=== PATIENT | male | born 1965 | race Hispanic/Latino ===

== ENCOUNTER 2022-01-27 08:21 | Emergency (ER) | payer BC ==
--- OUTSIDE RECORDS SUMMARY | 2022-01-27 08:28 | XMS REPORT | Continuity of Care Document ---
:1965 Author Organization [facility] t Address [address] [place] [address] Care Team Providers Name Role Phone Ike MANAGER IMAGE Primary Care Physician Regan GRANADOS Attending Clinician Unavailable Darwin GRAVE CLEANER, G Attending Clinician CLIFTON GUAMAN Attending Clinician Unavailable Nurse, Pob Immunization Attending Clinician Unavailable Clifton Guaman DO Attending Clinician SANDEEP SEGURA Attending Clinician Unavailable Lab, Fam Pob I Attending Clinician Unavailable Anelouise MANAGER IMAGE Attending Clinician ANENE Attending Clinician Unavailable Doctor Unassigned, Name Attending Clinician Unavailable Sarah Beth PAZ, K.H. Attending Clinician SARAH BETH, K.H. Attending Clinician Unavailable Sagar PAZ Attending Clinician Pob, Lab Main Attending Clinician Unavailable Kavitha Vicente MD Attending Clinician Kavitha VICENTE Attending Clinician Unavailable TAINA Attending Clinician Unavailable Tania PARR Attending Clinician Unknown Attending Clinician Unavailable SAGAR Attending Clinician Unavailable Senthil STEVENS Attending Clinician Unavailable Hilda PARR, R Attending Clinician Galeano Attending Clinician TANIA Admitting Clinician Unavailable SAGAR Admitting Clinician Unavailable Senthil STEVENS Admitting Clinician Unavailable Payers Payer Name Policy Type Policy Number Effective Date Expiration Date S jarrod [facility] [place] [id number] 2015 00:00:00 Problems Condition Condition Condition Status Onset Resolution Last Treating Co mments Source Name Details Category Date Date Treatment Clinician Date No known No known Disease Unive rs active active ity of problems problems [facility] Allergies, Adverse Reactions, Alerts Allergy Allergy Status Severity Reaction(s) Onset Inactive Treating Comm ents Source Name Type Date Date Clinician NO KNOWN Drug Active Univers ALLERGIE Class ity of S [facility] Social History Social Habit Start Date Stop Date Quantity Comments Source Exposure to 2022-01-11 2022-01-21 Not sure [facility] SARS-CoV-2 (event) 00:00:00 13:26:00 Medica l Branch Tobacco use and 2020-09-19 2020-09-19 Never used [facility] exposure 00:00:00 00:00:00 [facility] Sex [birth year] [facility] 00:00:00 00:00:00 [facility] Smoking Status Start Date Stop Date Source Never smoker [facility] Unknown if ever smoked [facility] Medications Ordered Filled Start Stop Current Ordering Indication Dosage Frequency Signature Comments Components Source Medication Medication Date Date Medication? Clinician (SIG) Name Name iopamidol 2021- No [id number] 50mL 50 mL, Univers (ISOVUE 01-21 Intravenou ity o f 370-500 mL) 22:00: 22:00 s, ONCE, 1 [place] injection 00 :00 dose, On Medica l 50 mL Wed01/21/22 Branch at 1700, Routine dicyclomine 2021- No 20mg 20 mg, Uni vers (BENTYL) 01-21 Intramuscu ity of injection 21:15: 20:34 [place], ONCE, [place] 20 mg 00 :00 1 dose, On Medical 01/21/22 Branch at 1615, Routine lactulose 2021-0 2021- Yes [id number] 30mL Take 30 mL Univers 10 gram/15 01-2109 by mouth 2 it y of mL oral 00:00: 04:59 (two) [place] solution 00 :00 times Medical daily for Branch 7 days. bisoprolol 2020-0 Yes 5mg Take 5 mg Un uriah 5 mg tablet 1-28 by mouth ity of 19:32: daily. [address] bisoprolol 2020-0 Yes 5mg Take 5 mg Un uriah 5 mg tablet 1-28 by mouth ity of 19:32: daily. [address] bisoprolol 2020-0 Yes 5mg Take 5 mg Un [facility] 5 mg tablet 1-28 by mouth ity of 19:32: daily. [address] bisoprolol 2020-0 Yes 5mg Take 5 mg Un [facility] 5 mg tablet 1-28 by mouth ity of 19:32: daily. [address] bisoprolol 2020-0 Yes 5mg Take 5 mg Un [facility] 5 mg tablet 1-28 by mouth ity of 19:32: daily. [address] bisoprolol 2020-0 Yes 5mg Take 5 mg Un [facility] 5 mg tablet 1-28 by mouth ity of 19:32: daily. [address] bisoprolol 2020-0 Yes 5mg Take 5 mg Un [facility] 5 mg tablet 1-28 by mouth ity of 19:32: daily. [address] bisoprolol 2020-0 Yes 5mg Take 5 mg Un [facility] 5 mg tablet 1-28 by mouth ity of 19:32: daily. [address] bisoprolol 2020-0 Yes 5mg Take 5 mg Un [facility] 5 mg tablet 1-28 by mouth ity of 19:32: daily. [address] omeprazole 2020-0 Yes 40mg Take 40 mg U nivers 40 mg 1-28 by mouth ity of capsule 19:32: daily. [address] montelukast 2020-0 Yes 10mg Take 10 mg Univers 10 mg 1-28 by mouth ity of tablet 19:32: daily. [address] omeprazole 2020-0 Yes 40mg Take 40 mg U nivers 40 mg 1-28 by mouth ity of capsule 19:32: daily. [address] montelukast 0 Yes 10mg Take 10 mg Univers 10 mg 1-28 by mouth ity of tablet 19:32: daily. [address] omeprazole 0 Yes 40mg Take 40 mg U nivers 40 mg 1-28 by mouth ity of capsule 19:32: daily. [address] montelukast 0 Yes 10mg Take 10 mg Univers 10 mg 1-28 by mouth ity of tablet 19:32: daily. [address] omeprazole 0 Yes 40mg Take 40 mg U nivers 40 mg 1-28 by mouth ity of capsule 19:32: daily. [address] montelukast 0 Yes 10mg Take 10 mg Univers 10 mg 1-28 by mouth ity of tablet 19:32: daily. [address] omeprazole 0 Yes 40mg Take 40 mg U nivers 40 mg 1-28 by mouth ity of capsule 19:32: daily. [address] montelukast 0 Yes 10mg Take 10 mg Univers 10 mg 1-28 by mouth ity of tablet 19:32: daily. [address] omeprazole 0 Yes 40mg Take 40 mg U nivers 40 mg 1-28 by mouth ity of capsule 19:32: daily. [address] montelukast 0 Yes 10mg Take 10 mg Univers 10 mg 1-28 by mouth ity of tablet 19:32: daily. [address] omeprazole 0 Yes 40mg Take 40 mg U nivers 40 mg 1-28 by mouth ity of capsule 19:32: daily. [address] montelukast 0 Yes 10mg Take 10 mg Univers 10 mg 1-28 by mouth ity of tablet 19:32: daily. [address] omeprazole 2020-0 Yes 40mg Take 40 mg U nivers 40 mg 1-28 by mouth ity of capsule 19:32: daily. [address] montelukast 0 Yes 10mg Take 10 mg Univers 10 mg 1-28 by mouth ity of tablet 19:32: daily. [address] omeprazole 2020-0 Yes 40mg Take 40 mg U nivers 40 mg 1-28 by mouth ity of capsule 19:32: daily. [address] Branch montelukast Yes 10mg Take 10 mg Univers 10 mg 09-19 by mouth ity of tablet 19:32: daily. [address] Branch loratadine 2020- No 10mg Take 10 mg Univers (CLARITIN) 09-19 by mouth ity of 10 mg 19:32: 00:00 daily. [place] tablet 05 :00 [facility] Branch loratadine 2020- No 10mg Take 10 mg Univers (CLARITIN) 09-19 by mouth ity of 10 mg 19:32: 00:00 daily. [place] tablet 05 :00 [facility] Branch lisinopril 2020- No 5mg Take 5 mg U nivers (PRINIVIL,Z 09-19 by mouth ity of ESTRIL) 5 19:32: 00:00 daily. [place] mg tablet 03 :00 [facility] Branch lisinopril 2020- No 5mg Take 5 mg U nivers (PRINIVIL,Z 09-19 by mouth ity of ESTRIL) 5 19:32: 00:00 daily. [place] mg tablet 03 :00 Medical Branch ibuprofen 2020- No 400mg Take 400 Un uriah (MOTRIN) 09-19- mg by ity of 400 mg 19:31: 00:00 mouth [place] tablet 59 :00 every 8 Medical (eight) Branch hours as needed. ibuprofen 2020- No 400mg Take 400 Un uriah (MOTRIN) 09-19- mg by ity of 400 mg 19:31: 00:00 mouth [place] tablet 59 :00 every 8 Medical (eight) Branch hours as needed. amoxicillin 2020- No 500mg Take 500 Univers (TRIMOX) 09-19- mg by ity of 500 mg 19:31: 00:00 mouth 3 [place] capsule 47 :00 (three) Medical times Branch daily. amoxicillin 2020- No 500mg Take 500 Univers (TRIMOX) 09-19- mg by ity of 500 mg 19:31: 00:00 mouth 3 [place] capsule 47 :00 (three) Medical times Branch daily. bisoprolol Yes 5mg Take 5 mg Un uriah 5 mg tablet 1-28 by mouth ity of 13:32: daily. [address] bisoprolol Yes 5mg Take 5 mg Un uriah 5 mg tablet -28 by mouth ity of 13:32: daily. [address] omeprazole Yes 40mg Take 40 mg U nivers 40 mg -28 by mouth ity of capsule 13:32: daily. [address] montelukast Yes 10mg Take 10 mg Univers 10 mg 28 by mouth ity of tablet 13:32: daily. [address] omeprazole Yes 40mg Take 40 mg U nivers 40 mg -28 by mouth ity of capsule 13:32: daily. [address] montelukast Yes 10mg Take 10 mg Univers 10 mg 09-19 by mouth ity of tablet 13:32: daily. [address] gadobenate 2020- No .2mL/kg 0.2 mL/kg, Univers dimeglumine 02-12 Intravenou i ty of (MULTIHANCE 16:30: 16:30 s, ONCE, 1 [place] -20 mL) 00 :00 dose, Tue Medical injection 02/13/20 at Bran ch 0.2 mL/kg 1130, Routine ketorolac 2019- No 30mg 30 mg, Unive rs (TORADOL) 01-23 Slow IV ity of injection 17:45: 16:58 Push, [place] 30 mg 00 :00 ONCE, 1 Medical dose, Wed Branch 01/24/20 at 1245, AFSHIN
Fa culty member approving Restricted medication : ESTRELLITA KEITH metoclopram 2020- No 10mg 10 mg, Uni vers jasmin HCl 01-23 Slow IV ity of (REGLAN) 16:45: 15:41 Push, [place] injection 00 :00 ONCE, 1 Medical 10 mg dose, Wed Branch 01/24/20 at 1145, AFSHIN ondansetron 2019- Yes [id number] 4mg Take 1 Univers 4 mg 01-23 tablet by ity of disintegrat 00:00: mouth [place] ing tablet 00 every 4 Medica l (four) Branch hours as needed for Nausea and Vomiting (N/V). meclizine 2020-0 Yes [id number] 25mg Take 1 Un uriah 25 mg 6-03 tablet by ity of tablet 00:00: mouth [place] 00 every 6 Medical (six) Branch hours. ondansetron 2020-0 Yes [id number] 4mg Take 1 Univers 4 mg 6-03 tablet by ity of disintegrat 00:00: mouth [place] ing tablet 00 every 4 Medica l (four) Branch hours as needed for Nausea and Vomiting (N/V). meclizine 2020-0 Yes [id number] 25mg Take 1 Un uriah 25 mg 6-03 tablet by ity of tablet 00:00: mouth [place] 00 every 6 Medical (six) Branch hours. ondansetron 2020-0 Yes [id number] 4mg Take 1 Univers 4 mg 6-03 tablet by ity of disintegrat 00:00: mouth [place] ing tablet 00 every 4 Medica l (four) Branch hours as needed for Nausea and Vomiting (N/V). meclizine 2020-0 Yes [id number] 25mg Take 1 Un uriah 25 mg 6-03 tablet by ity of tablet 00:00: mouth [place] 00 every 6 Medical (six) Branch hours. ondansetron 2020-0 Yes [id number] 4mg Take 1 Univers 4 mg 6-03 tablet by ity of disintegrat 00:00: mouth [place] ing tablet 00 every 4 Medica l (four) Branch hours as needed for Nausea and Vomiting (N/V). meclizine 2020-0 Yes [id number] 25mg Take 1 Un uriah 25 mg 6-03 tablet by ity of tablet 00:00: mouth [place] 00 every 6 Medical (six) Branch hours. ondansetron 2020-0 Yes [id number] 4mg Take 1 Univers 4 mg 6-03 tablet by ity of disintegrat 00:00: mouth [place] ing tablet 00 every 4 Medica l (four) Branch hours as needed for Nausea and Vomiting (N/V). meclizine 2020-0 Yes [id number] 25mg Take 1 Un uriah 25 mg 6-03 tablet by ity of tablet 00:00: mouth [place] 00 every 6 Medical (six) Branch hours. ondansetron 2020-0 Yes [id number] 4mg Take 1 Univers 4 mg 6-03 tablet by ity of disintegrat 00:00: mouth [place] ing tablet 00 every 4 Medica l (four) Branch hours as needed for Nausea and Vomiting (N/V). meclizine 2020-0 Yes [id number] 25mg Take 1 Un uriah 25 mg 6-03 tablet by ity of tablet 00:00: mouth [place] 00 every 6 Medical (six) Branch hours. ondansetron 2020-0 Yes [id number] 4mg Take 1 Univers 4 mg 6-03 tablet by ity of disintegrat 00:00: mouth [place] ing tablet 00 every 4 Medica l (four) Branch hours as needed for Nausea and Vomiting (N/V). meclizine 2020-0 Yes [id number] 25mg Take 1 Un uriah 25 mg 6-03 tablet by ity of tablet 00:00: mouth [place] 00 every 6 Medical (six) Branch hours. ondansetron 2020-0 Yes [id number] 4mg Take 1 Univers 4 mg 6-03 tablet by ity of disintegrat 00:00: mouth [place] ing tablet 00 every 4 Medica l (four) Branch hours as needed for Nausea and Vomiting (N/V). meclizine 2020-0 Yes [id number] 25mg Take 1 Un uriah 25 mg 6-03 tablet by ity of tablet 00:00: mouth [place] 00 every 6 Medical (six) Branch hours. ondansetron 2020-0 2020- No [id number] 4mg Take 1 Univers 4 mg 6-03 01-28 tablet by ity of disintegrat 00:00: 00:00 mouth [place] tablet 00 :00 every 4 Medica l (four) Branch hours as needed for Nausea and Vomiting (N/V). meclizine 2020-0 2020- No [id number] 25mg Take 1 U nivers 25 mg 6-03 01-28 tablet by ity of tablet 00:00: 00:00 mouth [place] 00 :00 every 6 Medical (six) Branch hours. ondansetron 2020-0 2020- No [id number] 4mg Take 1 Univers 4 mg 6-03 01-28 tablet by ity of disintegrat 00:00: 00:00 mouth [place] tablet 00 :00 every 4 Medica l (four) Branch hours as needed for Nausea and Vomiting (N/V). meclizine 2020-0 2020- No [id number] 25mg Take 1 U nivers 25 mg 6-03 01-28 tablet by ity of tablet 00:00: 00:00 mouth [place] 00 :00 every 6 Medical (six) Branch hours. ciprofloxac 2020-0 Yes [id number] 500mg Take 1 Univers in HCl 500 3-24 tablet by ity of mg tablet 00:00: mouth (two) Medical times Branch daily. ciprofloxac 2020-0 Yes [id number] 500mg Take 1 Univers in HCl 500 3-24 tablet by ity of mg tablet 00:00: mouth (two) Medical times Branch daily. ciprofloxac 2020-0 Yes [id number] 500mg Take 1 Univers in HCl 500 3-24 tablet by ity of mg tablet 00:00: mouth (two) Medical times Branch daily. ciprofloxac 2020-0 Yes [id number] 500mg Take 1 Univers in HCl 500 3-24 tablet by ity of mg tablet 00:00: mouth (two) Medical times Branch daily. ciprofloxac 2020-0 Yes [id number] 500mg Take 1 Univers in HCl 500 3-24 tablet by ity of mg tablet 00:00: mouth (two) Medical times Branch daily. ciprofloxac 2020-0 Yes [id number] 500mg Take 1 Univers in HCl 500 3-24 tablet by ity of mg tablet 00:00: mouth (two) Medical times Branch daily. ciprofloxac 2020-0 Yes [id number] 500mg Take 1 Univers in HCl 500 3-24 tablet by ity of mg tablet 00:00: mouth (two) Medical times Branch daily. ciprofloxac 2020-0 Yes [id number] 500mg Take 1 Univers in HCl 500 3-24 tablet by ity of mg tablet 00:00: mouth (two) Medical times Branch daily. ciprofloxac 2020-0 Yes [id number] 500mg Take 1 Univers in HCl 500 3-24 tablet by ity of mg tablet 00:00: mouth (two) Medical times Branch daily. ciprofloxac 2020-0 Yes [id number] 500mg Take 1 Univers in HCl 500 3-24 tablet by ity of mg tablet 00:00: mouth (two) Medical times Branch daily. ciprofloxac 2020-0 2021- No [id number] 500mg Take 1 Univers in HCl 500 11-13 tablet by ity of mg tablet 00:00: 00:00 mouth 2 [place] 00 :[place] (two) Medical times Branch daily. ciprofloxac No [id number] 500mg Take 1 Univers in HCl 500 11-13 tablet by ity of mg tablet 00:00: 00:00 mouth 2 [place] 00 :00 (two) Medical times Branch daily. metroNIDAZO 2019- No 500mg 500 mg, U nivers LE (FLAGYL) 11-12 Oral, ity of tablet 500 23:15: 22:18 ONCE, 1 [place] mg 00 :00 dose, [facility] Medical 11/13/19 at Branch 1815, AFSHIN
Re ason for Anti-Infec tive: Documented Infection< br>Documen dorcas Infection Site: Abdominal< br>Duratio n of Therapy: Other (see Comments) ciprofloxac No 500mg 500 mg, U nivers in HCl 11-12 Oral, ity of (CIPRO) 23:15: 22:18 ONCE, 1 [place] tablet 500 00 :00 dose, Mon Medi priti mg 11/13/19 at Branch 1815, AFSHIN
Re ason for Anti-Infec tive: Documented Infection< br>Documen dorcas Infection Site: Abdominal< br>Duratio n of Therapy: Other (see Comments) ketorolac No 30mg 30 mg, Unive rs (TORADOL) 11-12 Slow IV ity of injection 22:15: 21:10 Push, [place] 30 mg 00 :00 ONCE, 1 Medical dose, [facility] 11/13/19 at 1715, AFSHIN
Fa culty member approving Restricted medication : AYAH STEVENS iohexol 2019- No 104mL 104 mL, Unive rs (OMNIPAQUE 11-12 Intravenou it y of 350 22:00: 21:43 s, ONCE, 1 [place] BULK-100 00 :00 dose, Mon Medica l mL) 11/13/19 at Branch injection 1700, 104 mL Routine NaCl 0.9% 2019- No 1000mL at 999 Uni vers (NS) bolus 11-12 03-23 mL/hr, ity of infusion 22:00: 22:19 1,000 mL, [place] 1,000 mL 00 :00 IV Medical Infusion, Branch ONCE, 1 dose, 11/13/19 at 1700, STAT metroNIDAZO 2020-0 2020- No [id number] 500mg Take 1 Univers LE 500 mg 11-12 tablet by ity of tablet 00:00: 04:59 mouth [place] 00 :00 every 8 Medical (eight) Branch hours for 8 days. meclizine 2020-0 Yes [id number] 25mg Take 1 U nivers 25 mg 1-03 tablet by ity of tablet 00:00: mouth (three) Medical times Branch daily as needed for Dizziness. meclizine 2020-0 Yes [id number] 25mg Take 1 U nivers 25 mg 1-03 tablet by ity of tablet 00:00: mouth (three) Medical times Branch daily as needed for Dizziness. meclizine 2020-0 Yes [id number] 25mg Take 1 U nivers 25 mg 1-03 tablet by ity of tablet 00:00: mouth (three) Medical times Branch daily as needed for Dizziness. meclizine 2020-0 Yes [id number] 25mg Take 1 U nivers 25 mg 1-03 tablet by ity of tablet 00:00: mouth 3 (three) Medical times Branch daily as needed for Dizziness. meclizine 2020-0 Yes [id number] 25mg Take 1 U nivers 25 mg 1-03 tablet by ity of tablet 00:00: mouth (three) Medical times Branch daily as needed for Dizziness. meclizine 2020-0 Yes [id number] 25mg Take 1 U nivers 25 mg 1-03 tablet by ity of tablet 00:00: mouth 3 (three) Medical times Branch daily as needed for Dizziness. meclizine 2020-0 Yes [id number] 25mg Take 1 U nivers 25 mg 1-03 tablet by ity of tablet 00:00: mouth 3 (three) Medical times Branch daily as needed for Dizziness. meclizine 2020-0 Yes [id number] 25mg Take 1 U nivers 25 mg 1-03 tablet by ity of tablet 00:00: mouth 3 [place] 00 (three) Medical times Branch daily as needed for Dizziness. meclizine 2020-0 Yes [id number] 25mg Take 1 U nivers 25 mg 1-03 tablet by ity of tablet 00:00: mouth 3 [place] 00 (three) Medical times Branch daily as needed for Dizziness. meclizine 2020-0 Yes [id number] 25mg Take 1 U nivers 25 mg 1-03 tablet by ity of tablet 00:00: mouth 3 00 (three) Medical times Branch daily as needed for Dizziness. meclizine 2020-0 2020- No [id number] 25mg Take 1 Univers 25 mg 1-03 -28 tablet by ity of tablet 00:00: 00:00 mouth 3 [place] 00 :00 (three) Medical times Branch daily as needed for Dizziness. meclizine 2019-0 2020- No [id number] 25mg Take 1 Univers 25 mg 1-03 -28 tablet by ity of tablet 00:00: 00:00 mouth 3 [place] 00 :00 (three) Medical times Branch daily as needed for Dizziness. chlorphenir 2019-0 Yes [id number] 4mg Take 1 Univers amine 4 mg 8-30 tablet by ity of tablet 00:00: mouth [place] 00 every 6 Medical (six) Branch hours as needed for Allergies or Runny nose. benzonatate 2019-0 Yes [id number] 200mg Take 1 Univers 200 mg 8-30 capsule by ity of capsule 00:00: mouth 3 [place] 00 (three) Medical times Branch daily as needed for Cough. chlorphenir 2019-0 Yes [id number] 4mg Take 1 Univers amine 4 mg 8-30 tablet by ity of tablet 00:00: mouth [place] 00 every 6 Medical (six) Branch hours as needed for Allergies or Runny nose. benzonatate 2019-0 Yes [id number] 200mg Take 1 Univers 200 mg 8-30 capsule by ity of capsule 00:00: mouth 3 [place] 00 (three) Medical times Branch daily as needed for Cough. chlorphenir 2019-0 Yes [id number] 4mg Take 1 Univers amine 4 mg 8-30 tablet by ity of tablet 00:00: mouth [place] 00 every 6 Medical (six) Branch hours as needed for Allergies or Runny nose. benzonatate 2019-0 Yes [id number] 200mg Take 1 Univers 200 mg 8-30 capsule by ity of capsule 00:00: mouth 3 00 (three) Medical times Branch daily as needed for Cough. chlorphenir 2019-0 Yes [id number] 4mg Take 1 Univers amine 4 mg 8-30 tablet by ity of tablet 00:00: mouth [place] 00 every 6 Medical (six) Branch hours as needed for Allergies or Runny nose. benzonatate 2019-0 Yes [id number] 200mg Take 1 Univers 200 mg 8-30 capsule by ity of capsule 00:00: mouth 3 00 (three) Medical times Branch daily as needed for Cough. chlorphenir 2019-0 Yes [id number] 4mg Take 1 [facility] amine 4 mg 8-30 tablet by ity of tablet 00:00: mouth [place] 00 every 6 Medical (six) Branch hours as needed for Allergies or Runny nose. benzonatate 2019-0 Yes [id number] 200mg Take 1 Univers 200 mg 8-30 capsule by ity of capsule 00:00: mouth 3 (three) Medical times Branch daily as needed for Cough. chlorphenir 2019-0 Yes [id number] 4mg Take 1 [facility] amine 4 mg 8-30 tablet by ity of tablet 00:00: mouth [place] 00 every 6 Medical (six) Branch hours as needed for Allergies or Runny nose. benzonatate 2019-0 Yes [id number] 200mg Take 1 Univers 200 mg 8-30 capsule by ity of capsule 00:00: mouth 3 (three) Medical times Branch daily as needed for Cough. chlorphenir 2019-0 Yes [id number] 4mg Take 1 [facility] amine 4 mg 8-30 tablet by ity of tablet 00:00: mouth [place] 00 every 6 Medical (six) Branch hours as needed for Allergies or Runny nose. benzonatate 2019-0 Yes [id number] 200mg Take 1 Univers 200 mg 8-30 capsule by ity of capsule 00:00: mouth 3 (three) Medical times Branch daily as needed for Cough. chlorphenir 2019-0 Yes [id number] 4mg Take 1 [facility] amine 4 mg 8-30 tablet by ity of tablet 00:00: mouth [place] 00 every 6 Medical (six) Branch hours as needed for Allergies or Runny nose. benzonatate 2019-0 Yes [id number] 200mg Take 1 Univers 200 mg 8-30 capsule by ity of capsule 00:00: mouth 3 00 (three) Medical times Branch daily as needed for Cough. chlorphenir 2019- Yes [id number] 4mg Take 1 Univers amine 4 mg 8-30 tablet by ity of tablet 00:00: mouth [place] 00 every 6 Medical (six) Branch hours as needed for Allergies or Runny nose. benzonatate Yes [id number] 200mg Take 1 Univers 200 mg 8-30 capsule by ity of capsule 00:00: mouth 3 [place] 00 (three) Medical times Branch daily as needed for Cough. chlorphenir Yes [id number] 4mg Take 1 Univers amine 4 mg 8-30 tablet by ity of tablet 00:00: mouth [place] 00 every 6 Medical (six) Branch hours as needed for Allergies or Runny nose. benzonatate Yes [id number] 200mg Take 1 Univers 200 mg 8-30 capsule by ity of capsule 00:00: mouth 3 [place] 00 (three) Medical times Branch daily as needed for Cough. chlorphenir Yes [id number] 4mg Take 1 Univers amine 4 mg 8-30 tablet by ity of tablet 00:00: mouth [place] 00 every 6 Medical (six) Branch hours as needed for Allergies or Runny nose. benzonatate Yes [id number] 200mg Take 1 Univers 200 mg 8-30 capsule by ity of capsule 00:00: mouth 3 [place] 00 (three) Medical times Branch daily as needed for Cough. chlorphenir 2020- No [id number] 4mg Take 1 Univers amine 4 mg 8-30 01-28 tablet by ity of tablet 00:00: 00:00 mouth [place] 00 :00 every 6 Medical (six) Branch hours as needed for Allergies or Runny nose. benzonatate 2020- No [id number] 200mg Take 1 Univers 200 mg 8-30 01-28 capsule by ity of capsule 00:00: 00:00 mouth 3 [place] 00 :00 (three) Medical times Branch daily as needed for Cough. chlorphenir 2018-0 2020- No [id number] 4mg Take 1 Univers amine 4 mg 8-30 01-28 tablet by ity of tablet 00:00: 00:00 mouth [place] 00 :00 every 6 Medical (six) Branch hours as needed for Allergies or Runny nose. benzonatate 2020- No [id number] 200mg Take 1 Univers 200 mg 04-21 capsule by ity of capsule 00:00: 00:00 mouth 3 [place] 00 :00 (three) Medical times Branch daily as needed for Cough. ibuprofen 2018-0 Yes 400mg Take 400 Uni vers (MOTRIN) 9-03 mg by ity of 400 mg 16:29: mouth [place] tablet 22 every 8 Medical (eight) Branch hours as needed. loratadine 2018-0 Yes 10mg Take 10 mg U nivers (CLARITIN) 9-03 by mouth ity o f 10 mg 16:29: daily. [place] tablet 22 Medical Branch amoxicillin 2018-0 Yes 500mg Take 500 U nivers (TRIMOX) 9-03 mg by ity of 500 mg 16:29: mouth 3 [place] capsule 22 (three) Medical times Branch daily. lisinopril 2018-0 Yes 5mg Take 5 mg Un uriah (PRINIVIL,Z 9-03 by mouth ity of ESTRIL) 5 16:29: daily. [place] mg tablet 22 Medical Branch ibuprofen 2018-0 Yes 400mg Take 400 Uni vers (MOTRIN) 9-03 mg by ity of 400 mg 16:29: mouth [place] tablet 22 every 8 Medical (eight) Branch hours as needed. loratadine 2018-0 Yes 10mg Take 10 mg U nivers (CLARITIN) 9-03 by mouth ity o f 10 mg 16:29: daily. [place] tablet 22 Medical Branch amoxicillin 2018-0 Yes 500mg Take 500 U nivers (TRIMOX) 9-03 mg by ity of 500 mg 16:29: mouth 3 [place] capsule 22 (three) Medical times Branch daily. lisinopril 2018-0 Yes 5mg Take 5 mg Un uriah (PRINIVIL,Z 9-03 by mouth ity of ESTRIL) 5 16:29: daily. [place] mg tablet 22 Medical Branch ibuprofen 2018-0 Yes 400mg Take 400 Uni vers (MOTRIN) 9-03 mg by ity of 400 mg 16:29: mouth [place] tablet 22 every 8 Medical (eight) Branch hours as needed. loratadine 2018-0 Yes 10mg Take 10 mg U nivers (CLARITIN) 9-03 by mouth ity o f 10 mg 16:29: daily. [place] tablet 22 Medical Branch amoxicillin 2018-0 Yes 500mg Take 500 U nivers (TRIMOX) 9-03 mg by ity of 500 mg 16:29: mouth 3 [place] capsule 22 (three) Medical times Branch daily. lisinopril 2018-0 Yes 5mg Take 5 mg Un uriah (PRINIVIL,Z 9-03 by mouth ity of ESTRIL) 5 16:29: daily. [place] mg tablet 22 Medical Branch ibuprofen 2018-0 Yes 400mg Take 400 Uni vers (MOTRIN) 9-03 mg by ity of 400 mg 16:29: mouth [place] tablet 22 every 8 Medical (eight) Branch hours as needed. loratadine 2018-0 Yes 10mg Take 10 mg U nivers (CLARITIN) 9-03 by mouth ity o f 10 mg 16:29: daily. [place] tablet 22 Medical Branch amoxicillin 2018-0 Yes 500mg Take 500 U nivers (TRIMOX) 9-03 mg by ity of 500 mg 16:29: mouth 3 [place] capsule 22 (three) Medical times Branch daily. lisinopril 2018-0 Yes 5mg Take 5 mg Un uriah (PRINIVIL,Z 9-03 by mouth ity of ESTRIL) 5 16:29: daily. [place] mg tablet 22 Medical Branch ibuprofen 2018-0 Yes 400mg Take 400 Uni vers (MOTRIN) 9-03 mg by ity of 400 mg 16:29: mouth [place] tablet 22 every 8 Medical (eight) Branch hours as needed. loratadine 2018-0 Yes 10mg Take 10 mg U nivers (CLARITIN) 9-03 by mouth ity o f 10 mg 16:29: daily. [place] tablet 22 Medical Branch ibuprofen 2018-0 Yes 400mg Take 400 Uni vers (MOTRIN) 9-03 mg by ity of 400 mg 16:29: mouth [place] tablet 22 every 8 Medical (eight) Branch hours as needed. loratadine 2018-0 Yes 10mg Take 10 mg U nivers (CLARITIN) 9-03 by mouth ity o f 10 mg 16:29: daily. [place] tablet 22 Medical Branch amoxicillin 2018-0 Yes 500mg Take 500 U nivers (TRIMOX) 9-03 mg by ity of 500 mg 16:29: mouth 3 [place] capsule 22 (three) Medical times Branch daily. amoxicillin 2018-0 Yes 500mg Take 500 U nivers (TRIMOX) 9-03 mg by ity of 500 mg 16:29: mouth 3 [place] capsule 22 (three) Medical times Branch daily. lisinopril 2018-0 Yes 5mg Take 5 mg Un ur[facility] (PRINIVIL,Z 9-03 by mouth ity of ESTRIL) 5 16:29: daily. [place] mg tablet 22 Medical Branch lisinopril 2018-0 Yes 5mg Take 5 mg [facility] (PRINIVIL,Z 9-03 by mouth ity of ESTRIL) 5 16:29: daily. [place] mg tablet 22 Medical Branch ibuprofen 2018-0 Yes 400mg Take 400 Uni vers (MOTRIN) 9-03 mg by ity of 400 mg 16:29: mouth [place] tablet 22 every 8 Medical (eight) Branch hours as needed. loratadine 2018-0 Yes 10mg Take 10 mg U nivers (CLARITIN) 9-03 by mouth ity o f 10 mg 16:29: daily. [place] tablet 22 Medical Branch amoxicillin 2018-0 Yes 500mg Take 500 U nivers (TRIMOX) 9-03 mg by ity of 500 mg 16:29: mouth 3 [place] capsule 22 (three) Medical times Branch daily. lisinopril 2018-0 Yes 5mg Take 5 mg [facility] (PRINIVIL,Z 9-03 by mouth ity of ESTRIL) 5 16:29: daily. [place] mg tablet 22 Medical Branch ibuprofen 2018-0 Yes 400mg Take 400 Uni vers (MOTRIN) 9-03 mg by ity of 400 mg 16:29: mouth [place] tablet 22 every 8 Medical (eight) Branch hours as needed. loratadine 2018-0 Yes 10mg Take 10 mg U nivers (CLARITIN) 9-03 by mouth ity o f 10 mg 16:29: daily. [place] tablet 22 Medical Branch amoxicillin 2018-0 Yes 500mg Take 500 U nivers (TRIMOX) 9-03 mg by ity of 500 mg 16:29: mouth 3 [place] capsule 22 (three) Medical times Branch daily. lisinopril 2018-0 Yes 5mg Take 5 mg Un [facility] (PRINIVIL,Z 9-03 by mouth ity of ESTRIL) 5 16:29: daily. [place] mg tablet 22 Medical Branch ibuprofen 2018-0 Yes 400mg Take 400 Uni vers (MOTRIN) 9-03 mg by ity of 400 mg 16:29: mouth [place] tablet 22 every 8 Medical (eight) Branch hours as needed. loratadine 2018-0 Yes 10mg Take 10 mg U nivers (CLARITIN) 9-03 by mouth ity o f 10 mg 16:29: daily. [place] tablet 22 Medical Branch amoxicillin 2018-0 Yes 500mg Take 500 U nivers (TRIMOX) 9-03 mg by ity of 500 mg 16:29: mouth 3 [place] capsule 22 (three) Medical times Branch daily. lisinopril 2018-0 Yes 5mg Take 5 mg Un [facility] (PRINIVIL,Z 9-03 by mouth ity of ESTRIL) 5 16:29: daily. [place] mg tablet 22 Medical Branch ibuprofen 2018-0 Yes 400mg Take 400 Uni vers (MOTRIN) 9-03 mg by ity of 400 mg 16:29: mouth [place] tablet 22 every 8 Medical (eight) Branch hours as needed. loratadine 2018-0 Yes 10mg Take 10 mg U nivers (CLARITIN) 9-03 by mouth ity o f 10 mg 16:29: daily. [place] tablet 22 Medical Branch amoxicillin 2018-0 Yes 500mg Take 500 U nivers (TRIMOX) 9-03 mg by ity of 500 mg 16:29: mouth 3 [place] capsule 22 (three) Medical times Branch daily. lisinopril 2018-0 Yes 5mg Take 5 mg [facility] (PRINIVIL,Z 9-03 by mouth ity of ESTRIL) 5 16:29: daily. [place] mg tablet 22 Medical Branch ibuprofen 2018-0 Yes 400mg Take 400 Uni vers (MOTRIN) 9-03 mg by ity of 400 mg 16:29: mouth [place] tablet 22 every 8 Medical (eight) Branch hours as needed. loratadine 2018-0 Yes 10mg Take 10 mg U nivers (CLARITIN) 9-03 by mouth ity o f 10 mg 16:29: daily. [place] tablet 22 Medical Branch amoxicillin 2018-0 Yes 500mg Take 500 U nivers (TRIMOX) 9-03 mg by ity of 500 mg 16:29: mouth 3 [place] capsule 22 (three) Medical times Branch daily. lisinopril 2018-0 Yes 5mg Take 5 mg [facility] (PRINIVIL,Z 9-03 by mouth ity of ESTRIL) 5 16:29: daily. [place] mg tablet 22 Medical Branch sulfamethox 2018-0 Yes 1{tbl} Take 1 Un ur[facility] azole-trime 9-03 tablet by ity of thoprim 00:00: mouth [place] 800-160 mg 00 every 12 Medic al per tablet (twelve) Branc h hours. ibuprofen 2018-0 Yes 800mg Take 1 Unive rs 800 mg 9-03 tablet by ity of tablet 00:00: mouth [place] 00 every 8 Medical (eight) Branch hours as needed for Pain (scale 4-6). sulfamethox 2018-0 Yes 1{tbl} Take 1 Un [facility] azole-trime 9-03 tablet by ity of thoprim 00:00: mouth [place] 800-160 mg 00 every 12 Medic al per tablet (twelve) Branc h hours. ibuprofen 2018-0 Yes 800mg Take 1 Unive rs 800 mg 9-03 tablet by ity of tablet 00:00: mouth [place] 00 every 8 Medical (eight) Branch hours as needed for Pain (scale 4-6). sulfamethox 2018-0 Yes 1{tbl} Take 1 Un [facility] azole-trime 9-03 tablet by ity of thoprim 00:00: mouth [place] 800-160 mg 00 every 12 Medic al per tablet (twelve) Branc h hours. ibuprofen 2018-0 Yes 800mg Take 1 Unive rs 800 mg 9-03 tablet by ity of tablet 00:00: mouth [place] 00 every 8 Medical (eight) Branch hours as needed for Pain (scale 4-6). sulfamethox 2018-0 Yes 1{tbl} Take 1 Un [facility] azole-trime 9-03 tablet by ity of thoprim 00:00: mouth [place] 800-160 mg 00 every 12 Medic al per tablet (twelve) Branc h hours. ibuprofen 2018-0 Yes 800mg Take 1 Unive rs 800 mg 9-03 tablet by ity of tablet 00:00: mouth [place] 00 every 8 Medical (eight) Branch hours as needed for Pain (scale 4-6). sulfamethox 2018-0 Yes 1{tbl} Take 1 [facility] azole-trime 9-03 tablet by ity of thoprim 00:00: mouth [place] 800-160 mg 00 every 12 Medic al per tablet (twelve) Branc h hours. ibuprofen 2018-0 Yes 800mg Take 1 Unive rs 800 mg 9-03 tablet by ity of tablet 00:00: mouth [place] 00 every 8 Medical (eight) Branch hours as needed for Pain (scale 4-6). sulfamethox 2018-0 Yes 1{tbl} Take 1 Un [facility] azole-trime 9-03 tablet by ity of thoprim 00:00: mouth [place] 800-160 mg 00 every 12 Medic al per tablet (twelve) Branc h hours. ibuprofen 2018-0 Yes 800mg Take 1 Unive rs 800 mg 9-03 tablet by ity of tablet 00:00: mouth [place] 00 every 8 Medical (eight) Branch hours as needed for Pain (scale 4-6). sulfamethox 2018-0 Yes 1{tbl} Take 1 Un [facility] azole-trime 9-03 tablet by ity of thoprim 00:00: mouth [place] 800-160 mg 00 every 12 Medic al per tablet (twelve) Branc h hours. ibuprofen 2018-0 Yes 800mg Take 1 Unive rs 800 mg 9-03 tablet by ity of tablet 00:00: mouth [place] 00 every 8 Medical (eight) Branch hours as needed for Pain (scale 4-6). sulfamethox 2018-0 Yes 1{tbl} Take 1 Un [facility] azole-trime 9-03 tablet by ity of thoprim 00:00: mouth [place] 800-160 mg 00 every 12 Medic al per tablet (twelve) Branc h hours. ibuprofen 2018-0 Yes 800mg Take 1 Unive rs 800 mg 9-03 tablet by ity of tablet 00:00: mouth [place] 00 every 8 Medical (eight) Branch hours as needed for Pain (scale 4-6). sulfamethox 2018-0 Yes 1{tbl} Take 1 Un [facility] azole-trime 9-03 tablet by ity of thoprim 00:00: mouth [place] 800-160 mg 00 every 12 Medic al per tablet (twelve) Branc h hours. ibuprofen 2018-0 Yes 800mg Take 1 Unive rs 800 mg 9-03 tablet by ity of tablet 00:00: mouth [place] 00 every 8 Medical (eight) Branch hours as needed for Pain (scale 4-6). sulfamethox 2018-0 Yes 1{tbl} Take 1 Un [facility] azole-trime 9-03 tablet by ity of thoprim 00:00: mouth [place] 800-160 mg 00 every 12 Medic al per tablet (twelve) Branc h hours. ibuprofen 2018-0 Yes 800mg Take 1 Unive rs 800 mg 9-03 tablet by ity of tablet 00:00: mouth [place] 00 every 8 Medical (eight) Branch hours as needed for Pain (scale 4-6). sulfamethox Yes 1{tbl} Take 1 Un [facility] azole-trime 9-03 tablet by ity of thoprim 00:00: mouth [place] 800-160 mg 00 every 12 Medic al per tablet (twelve) Branc h hours. ibuprofen Yes 800mg Take 1 Unive rs 800 mg - tablet by ity of tablet 00:00: mouth [place] 00 every 8 Medical (eight) Branch hours as needed for Pain (scale 4-6). sulfamethox 2020- No 1{tbl} Take 1 U nivers azole-trime -10 21- tablet by it y of thoprim 00:00: 00:00 mouth [place] 800-160 mg 00 :00 every 12 Medic al per tablet (twelve) Branc h hours. ibuprofen 2020- No 800mg Take 1 Univ ers 800 mg -09-19 tablet by ity of tablet 00:00: 00:00 mouth [place] 00 :00 every 8 Medical (eight) Branch hours as needed for Pain (scale 4-6). sulfamethox 2020- No 1{tbl} Take 1 U nivers azole-trime -10 21- tablet by it y of thoprim 00:00: 00:00 mouth [place] 800-160 mg 00 :00 every 12 Medic al per tablet (twelve) Branc h hours. ibuprofen 2020- No 800mg Take 1 Univ ers 800 mg 04-25 tablet by ity of tablet 00:00: 00:00 mouth [place] 00 :00 every 8 Medical (eight) Branch hours as needed for Pain (scale 4-6). acetaminoph Yes 1{tbl} Take 1 Un [facility] en-codeine 2-20 tablet by ity of (TYLENOL-CO 00:00: mouth [place] DEINE #3) 00 every 6 Medical 300-30 mg (six) Branch tablet hours as needed for Pain (scale 4-6) (for cough). sod Yes 1{bottl Use 1 Univers chlor-bicar 2-20 e} Bottle in ity of b-squeez 00:00: each [place] bottle 00 nostril 2 Medical (NEILMED (two) Branch SINUS RINSE times COMPLETE) daily. Use pkdv in hot shower 1 hour before bedtime acetaminoph Yes 1{tbl} Take 1 Un [facility] en-codeine 2-20 tablet by ity of (TYLENOL-CO 00:00: mouth [place] DEINE #3) 00 every 6 Medical 300-30 mg (six) Branch tablet hours as needed for Pain (scale 4-6) (for cough). sod Yes 1{bottl Use 1 Univers chlor-bicar 2-20 e} Bottle in ity of b-squeez 00:00: each [place] bottle 00 nostril 2 Medical (NEILMED (two) Branch SINUS RINSE times COMPLETE) daily. Use pkdv in hot shower 1 hour before bedtime acetaminoph Yes 1{tbl} Take 1 Un [facility] en-codeine 2-20 tablet by ity of (TYLENOL-CO 00:00: mouth [place] DEINE #3) 00 every 6 Medical 300-30 mg (six) Branch tablet hours as needed for Pain (scale 4-6) (for cough). sod Yes 1{bottl Use 1 Univers chlor-bicar 2-20 e} Bottle in ity of b-squeez 00:00: each [place] bottle 00 nostril 2 Medical (NEILMED (two) Branch SINUS RINSE times COMPLETE) daily. Use pkdv in hot shower 1 hour before bedtime acetaminoph Yes 1{tbl} Take 1 Un [facility] en-codeine 2-20 tablet by ity of (TYLENOL-CO 00:00: mouth [place] DEINE #3) 00 every 6 Medical 300-30 mg (six) Branch tablet hours as needed for Pain (scale 4-6) (for cough). sod Yes 1{bottl Use 1 Univers chlor-bicar 2-20 e} Bottle in ity of b-squeez 00:00: each [place] bottle 00 nostril 2 Medical (NEILMED (two) Branch SINUS RINSE times COMPLETE) daily. Use pkdv in hot shower 1 hour before bedtime acetaminoph Yes 1{tbl} Take 1 [facility] en-codeine 2-20 tablet by ity of (TYLENOL-CO 00:00: mouth [place] DEINE #3) 00 every 6 Medical 300-30 mg (six) Branch tablet hours as needed for Pain (scale 4-6) (for cough). sod Yes 1{bottl Use 1 Univers chlor-bicar 2-20 e} Bottle in ity of b-squeez 00:00: each [place] bottle 00 nostril 2 Medical (NEILMED (two) Branch SINUS RINSE times COMPLETE) daily. Use pkdv in hot shower 1 hour before bedtime acetaminoph Yes 1{tbl} Take 1 Un [facility] en-codeine 2-20 tablet by ity of (TYLENOL-CO 00:00: mouth [place] DEINE #3) 00 every 6 Medical 300-30 mg (six) Branch tablet hours as needed for Pain (scale 4-6) (for cough). sod Yes 1{bottl Use 1 Univers chlor-bicar 2-20 e} Bottle in ity of b-squeez 00:00: each [place] bottle 00 nostril 2 Medical (NEILMED (two) Branch SINUS RINSE times COMPLETE) daily. Use pkdv in hot shower 1 hour before bedtime acetaminoph Yes 1{tbl} Take 1 Un [facility] en-codeine 2-20 tablet by ity of (TYLENOL-CO 00:00: mouth [place] DEINE #3) 00 every 6 Medical 300-30 mg (six) Branch tablet hours as needed for Pain (scale 4-6) (for cough). sod Yes 1{bottl Use 1 Univers chlor-bicar 2-20 e} Bottle in ity of b-squeez 00:00: each [place] bottle 00 nostril 2 Medical (NEILMED (two) Branch SINUS RINSE times COMPLETE) daily. Use pkdv in hot shower 1 hour before bedtime acetaminoph Yes 1{tbl} Take 1 [facility] en-codeine 2-20 tablet by ity of (TYLENOL-CO 00:00: mouth [place] DEINE #3) 00 every 6 Medical 300-30 mg (six) Branch tablet hours as needed for Pain (scale 4-6) (for cough). sod Yes 1{bottl Use 1 Univers chlor-bicar 2-20 e} Bottle in ity of b-squeez 00:00: each [place] bottle 00 nostril 2 Medical (NEILMED (two) Branch SINUS RINSE times COMPLETE) daily. Use pkdv in hot shower 1 hour before bedtime acetaminoph Yes 1{tbl} Take 1 Un [facility] en-codeine 2-20 tablet by ity of (TYLENOL-CO 00:00: mouth [place] DEINE #3) 00 every 6 Medical 300-30 mg (six) Branch tablet hours as needed for Pain (scale 4-6) (for cough). sod Yes 1{bottl Use 1 Univers chlor-bicar 2-20 e} Bottle in ity of b-squeez 00:00: each [place] bottle 00 nostril 2 Medical (NEILMED (two) Branch SINUS RINSE times COMPLETE) daily. Use pkdv in hot shower 1 hour before bedtime acetaminoph Yes 1{tbl} Take 1 Un [facility] en-codeine 2-20 tablet by ity of (TYLENOL-CO 00:00: mouth [place] DEINE #3) 00 every 6 Medical 300-30 mg (six) Branch tablet hours as needed for Pain (scale 4-6) (for cough). sod Yes 1{bottl Use 1 Univers chlor-bicar 2-20 e} Bottle in ity of b-squeez 00:00: each [place] bottle 00 nostril 2 Medical (NEILMED (two) Branch SINUS RINSE times COMPLETE) daily. Use pkdv in hot shower 1 hour before bedtime acetaminoph Yes 1{tbl} Take 1 Un [facility] en-codeine 2-20 tablet by ity of (TYLENOL-CO 00:00: mouth [place] DEINE #3) 00 every 6 Medical 300-30 mg (six) Branch tablet hours as needed for Pain (scale 4-6) (for cough). sod Yes 1{bottl Use 1 Univers chlor-bicar 2-20 e} Bottle in ity of b-squeez 00:00: each [place] bottle 00 nostril 2 Medical (NEILMED (two) Branch SINUS RINSE times COMPLETE) daily. Use pkdv in hot shower 1 hour before bedtime acetaminoph 2020- No 1{tbl} Take 1 U nivers en-codeine 2-20 -28 tablet by ity of (TYLENOL-CO 00:00: 00:00 [place] DEINE #3[place] 00 :00 every 6 Medical 300-30 mg (six) Branch tablet hours as needed for Pain (scale 4-6) (for cough). sod 2020- No 1{bottl Use 1 Univers chlor-bicar 10-12 e} Bottle in it y of b-squeez 00:00: 00:00 each [place] bottle 00 :00 nostril 2 Medical (NEILMED (two) Branch SINUS RINSE times COMPLETE) daily. Use pkdv in hot shower 1 hour before bedtime acetaminoph 2020- No 1{tbl} Take 1 U nivers en-codeine 10-12 tablet by ity of (TYLENOL-CO 00:00: 00:00 [place] DEINE #3) 00 :00 every 6 Medical 300-30 mg (six) Branch tablet hours as needed for Pain (scale 4-6) (for cough). sod 2020- No 1{bottl Use 1 Univers chlor-bicar 10-12 e} Bottle in it y of b-squeez 00:00: 00:00 each [place] bottle 00 :00 nostril 2 Medical (NEILMED (two) Branch SINUS RINSE times COMPLETE) daily. Use pkdv in hot shower 1 hour before bedtime albuterol Yes 2{puff} Inhale 2 U nivers (VENTOLIN) 4-10 Puffs ity of 90 00:00: every 4 [place] mcg/actuati 00 (four) Medica l on inhaler hours as Branc h needed for Wheezing or Shortness of Breath. albuterol Yes 2{puff} Inhale 2 U nivers (VENTOLIN) 4-10 Puffs ity of 90 00:00: every 4 [place] mcg/actuati 00 (four) Medica l on inhaler hours as Branc h needed for Wheezing or Shortness of Breath. albuterol Yes 2{puff} Inhale 2 U nivers (VENTOLIN) 4-10 Puffs ity of 90 00:00: every 4 [place] mcg/actuati 00 (four) Medica l on inhaler hours as Branc h needed for Wheezing or Shortness of Breath. albuterol 2015-0 Yes 2{puff} Inhale 2 U nivers (VENTOLIN) 4-10 Puffs ity of 90 00:00: every 4 [place] mcg/actuati 00 (four) Medica l on inhaler hours as Branc h needed for Wheezing or Shortness of Breath. albuterol 2015-0 Yes 2{puff} Inhale 2 U nivers (VENTOLIN) 4-10 Puffs ity of 90 00:00: every 4 [place] mcg/actuati 00 (four) Medica l on inhaler hours as Branc h needed for Wheezing or Shortness of Breath. albuterol 2015-0 Yes 2{puff} Inhale 2 U nivers (VENTOLIN) 4-10 Puffs ity of 90 00:00: every 4 [place] mcg/actuati 00 (four) Medica l on inhaler hours as Branc h needed for Wheezing or Shortness of Breath. albuterol 2015-0 Yes 2{puff} Inhale 2 U nivers (VENTOLIN) 4-10 Puffs ity of 90 00:00: every 4 [place] mcg/actuati 00 (four) Medica l on inhaler hours as Branc h needed for Wheezing or Shortness of Breath. albuterol 0 Yes 2{puff} Inhale 2 U nivers (VENTOLIN) 4-10 Puffs ity of 90 00:00: every 4 [place] mcg/actuati 00 (four) Medica l on inhaler hours as Branc h needed for Wheezing or Shortness of Breath. albuterol 0 Yes 2{puff} Inhale 2 U nivers (VENTOLIN) 4-10 Puffs ity of 90 00:00: every 4 [place] mcg/actuati 00 (four) Medica l on inhaler hours as Branc h needed for Wheezing or Shortness of Breath. albuterol 2015-0 Yes 2{puff} Inhale 2 U nivers (VENTOLIN) 4-10 Puffs ity of 90 00:00: every 4 [place] mcg/actuati 00 (four) Medica l on inhaler hours as Branc h needed for Wheezing or Shortness of Breath. albuterol 0 Yes 2{puff} Inhale 2 U nivers (VENTOLIN) 4-10 Puffs ity of 90 00:00: every 4 [place] mcg/actuati 00 (four) Medica l on inhaler hours as Branc h needed for Wheezing or Shortness of Breath. albuterol 2020- No 2{puff} Inhale 2 Univers (VENTOLIN) 11-30-28 Puffs ity of 90 00:00: 00:00 every 4 [place] mcg/actuati 00 :00 (four) Medica l on inhaler hours as Branc h needed for Wheezing or Shortness of Breath. albuterol 2020- No 2{puff} Inhale 2 Univers (VENTOLIN) 11-30- Puffs ity of 90 00:00: 00:00 every 4 [place] mcg/actuati 00 :00 (four) Medica l on inhaler hours as Branc h needed for Wheezing or Shortness of Breath. benzonatate 2018- No 200mg Take 1 Cap Univers (TESSALON) 11-30 by mouth 3 it y of 200 mg 00:00: 00:00 (three) [place] capsule 00 :00 times Medical daily as Branch needed for Cough. Immunizations Ordered Filled Immunization Date Status Comments [facility] e Immunization Name Name SARS-COV-2 COVID-19 2021-08-12 Completed Unive rsity of [place]/J&J VACCINE 00:00:00 [facility] SARS-COV-2 COVID-19 2021-08-12 Completed Unive rsity of [place]/J&J VACCINE 00:00:00 [facility] Influenza Virus 2020-05-23 Completed Universit y of Vaccine 00:00:00 [facility] Influenza Virus 2020-05-23 Completed Universit y of Vaccine 00:00:00 [facility] Influenza Virus 2020-05-23 Completed Universit y of Vaccine 00:00:00 [facility] Influenza Virus 2020-05-23 Completed Universit y of Vaccine 00:00:00 [facility] Influenza Virus 2020-05-23 Completed Universit y of Vaccine 00:00:00 [facility] Influenza Virus 2020-05-23 Completed Universit y of Vaccine 00:00:00 [facility] Influenza Virus 2020-05-23 Completed Universit y of Vaccine 00:00:00 [facility] Influenza Virus 2020-05-23 Completed Universit y of Vaccine 00:00:00 [facility] Influenza Virus 2020-05-23 Completed Universit y of Vaccine 00:00:00 [facility] Influenza Virus 2020-05-23 Completed Universit y of Vaccine 00:00:00 [facility] Influenza Virus 2020-05-23 Completed Universit y of Vaccine 00:00:00 [facility] Td 2018-04-25 Completed University of 00:00:00 [facility] Td 2018-04-25 Completed University of 00:00:00 [facility] Td 2018-04-25 Completed University of 00:00:00 [facility] Td 2018-04-25 Completed University of 00:00:00 [facility] Td 2018-04-25 Completed University of 00:00:00 [facility] Td 2018-04-25 Completed University of 00:00:00 [place] [facility] Td 2018-04-25 Completed University of 00:00:00 [facility] Td 2018-04-25 Completed University of 00:00:00 [facility] Td 2018-04-25 Completed University of 00:00:00 [facility] Td 2018-04-25 Completed University of 00:00:00 [facility] Td 2018-04-25 Completed University of 00:00:00 [facility] Td 2018-04-25 Completed University of 00:00:00 [facility] Td 2018-04-25 Completed University of 00:00:00 [facility] Td 2018-04-25 Completed University of 00:00:00 [facility] Td 2018-04-25 Completed University of 00:00:00 [facility] Td 2018-04-25 Completed University of 00:00:00 [facility] Td 2018-04-25 Completed University of 00:00:00 [facility] Td 2018-04-25 Completed University of 00:00:00 [facility] Td 2018-04-25 Completed University of 00:00:00 [facility] Td 2018-04-25 Completed University of 00:00:00 [facility] Td 2018-04-25 Completed University of 00:00:00 [facility] Td 2018-04-25 Completed University of 00:00:00 [facility] Vital Signs Vital Name Observation Time Observation Value Comments Source Systolic blood 2022-01-21 20:44:07 131 mm[Hg] Univer sity of pressure [facility] Diastolic blood 2022-01-21 20:44:07 90 mm[Hg] Unive rsity of pressure [facility] Heart rate 2022-01-21 20:44:07 68 /min [facility] [place] [facility] Respiratory rate 2022-01-21 20:44:07 14 /min [facility] ers[facility] [place] [facility] Oxygen saturation in 2022-01-21 20:44:07 98 /min University of Arterial blood by [place] [employer] [facility] Pulse oximetry Branch Body temperature 2022-01-21 18:31:00 36.33 Sana [facility] ers[facility] [place] [facility] Body height 2022-01-21 18:31:00 182.9 cm [facility] [place] [facility] Body weight 2022-01-21 18:31:00 107.049 kg [facility] [place] [facility] BMI 2022-01-21 18:31:00 32.01 kg/m2 [facility] [place] [facility] Systolic blood 2020-09-19 19:34:00 123 mm[Hg] Univer sity of pressure [facility] Diastolic blood 2020-09-19 19:34:00 84 mm[Hg] Unive rsity of pressure [facility] Heart rate 2020-09-19 19:34:00 79 /min [facility] [place] [facility] Respiratory rate 2020-09-19 19:34:00 19 /min Univ ers[facility] [place] [facility] Body height 2020-09-19 19:34:00 182.9 cm [facility] [place] [facility] Body weight 2020-09-19 19:34:00 108.863 kg [facility] [place] [facility] BMI 2020-09-19 19:34:00 32.55 kg/m2 [facility] [place] [facility] Oxygen saturation in 2020-09-19 19:34:00 96 /min University of Arterial blood by [place] [employer] [facility] Pulse oximetry Branch Systolic blood 2020-09-18 22:00:00 126 mm[Hg] Univer sity of pressure [place] [facility] Diastolic blood 2020-09-18 22:00:00 80 mm[Hg] Unive rsity of pressure [facility] Heart rate 2020-09-18 22:00:00 63 /min [facility] [place] [facility] Respiratory rate 2020-09-18 22:00:00 17 /min [facility] ers[facility] [place] [facility] Oxygen saturation in 2020-09-18 22:00:00 98 /min University of Arterial blood by [place] [employer] [facility] Pulse oximetry Branch Body temperature 2020-09-18 21:00:00 36.56 Sana [facility] [place] [facility] Body weight 2020-09-18 18:46:00 108.863 kg [facility] [place] [facility] BMI 2020-09-18 18:46:00 32.55 kg/m2 [facility] [place] [facility] Systolic blood 2020-01-24 17:00:00 117 mm[Hg] Univer sity of pressure [place] [facility] Diastolic blood 2020-01-24 17:00:00 85 mm[Hg] Unive rsity of pressure [place] [facility] Heart rate 2020-01-24 17:00:00 68 /min [facility] [place] [facility] Respiratory rate 2020-01-24 17:00:00 16 /min Univ ersity [facility] [place] [facility] Oxygen saturation in 2020-01-24 17:00:00 96 /min University of Arterial blood by [facility] Pulse oximetry Branch Body weight 2020-01-24 15:31:00 108.863 kg [facility] [place] [facility] BMI 2020-01-24 15:31:00 32.55 kg/m2 Universi ty of [facility] Body temperature 2020-01-24 15:20:00 37.06 Sana [facility] Systolic blood 2019-11-13 22:00:00 131 mm[Hg] Univer sity of pressure [facility] Diastolic blood 2019-11-13 22:00:00 83 mm[Hg] Unive rsity of pressure [facility] Heart rate 2019-11-13 22:00:00 74 /min [facility] Respiratory rate 2019-11-13 22:00:00 20 /min [facility] Oxygen saturation in 2019-11-13 22:00:00 98 /min [facility] of Arterial blood by [facility] Pulse oximetry Branch Body temperature 2019-11-13 20:49:00 37.89 Sana [facility] Body weight 2019-11-13 20:49:00 108.863 kg [facility] BMI 2019-11-13 20:49:00 32.55 kg/m2 [facility] Systolic blood 2019-04-21 20:00:00 142 mm[Hg] Univer [facility] Diastolic blood 2019-04-21 20:00:00 88 mm[Hg] [facility] of pressure [facility] Heart rate 2019-04-21 20:00:00 86 /min [facility] Body temperature 2019-04-21 20:00:00 37.22 Sana [facility] Respiratory rate 2019-04-21 20:00:00 18 /min [facility] Body height 2019-04-21 20:00:00 182.9 cm [facility] Body weight 2019-04-21 20:00:00 106.142 kg [facility] BMI 2019-04-21 20:00:00 31.74 kg/m2 [facility] Oxygen saturation in 2019-04-21 20:00:00 97 /min [facility] Arterial blood by [facility] Pulse oximetry Branch Procedures Procedure Date / Time Performing Source Performed Clinician CT ABDOMEN PELVIS W CONTRAST 2022-01-21 Shayy Granados [facility] 20:55:17 [facility] URINALYSIS 2022-01-21 Shayy Granados [facility] 20:24:00 [facility] LIPASE 2022-01-21 Darwin Shayy [facility] 20:17:00 [facility] COMP. METABOLIC PANEL ([id number]) 2022-01-21 Shayy Granados [facility] 20:17:00 [facility] CBC WITH DIFF 2022-01-21 Shayy Granados [facility] 20:17:00 [facility] CONSENT/REFUSAL FOR DIAGNOSIS 2022-01-21 Doctor Unassigned, [facility] AND TREATMENT 18:41:37 [facility] NOTICE OF PRIVACY PRACTICES 2022-01-21 Doctor Unassigned, [facility] 18:26:14 [facility] SARS-COV-2 COVID-19 2021-08-12 Doctor Unassigned, [facility] VACCINE,0.5ML,IM 19:06:07 [facility] (TEODORA/J&J) DISCLOSURE AND CONSENT, 2020-09-30 Doctor Unassigned, [facility] MEDICAL AND SURGICAL 06:01:00 [facility] PROCEDURES TROPONIN I 2020-09-18 Estrellita Keith [facility] xas 21:25:00 Medical Branch XR CHEST 1 VW 2020-09-18 Sagar [facility] xas 19:31:22 [facility] Branch TROPONIN I 2020-09-[facility] Medical Branch HEPATIC FUNCTION PANEL 2020-09-[facility] ([id number] (ALB,T.PRO,BILI 19:05:00 Medical Branch T,BU/BC,ALT,AST,ALK PHOS) BASIC METABOLIC PANEL (NA, K, 2020-09-18 Estrellita Keith [facility] CL, CO2, GLUCOSE, BUN, 19:05:00 Medical B ranch CREATININE, CA) CBC WITH DIFF 2020-09-18 [facility] 19:05:00 Medical Branch PROTHROMBIN TIME / INR 2020-09-18 [facility] 19:05:00 Medical Branch D-DIMER 2020-09-18 [facility] 19:05:00 Medical Branch ACTIVATED PARTIAL THRMPLAS 2020-09-18 Sagar [facility] MAYITO 19:05:00 Medical Branch CONSENT/REFUSAL FOR DIAGNOSIS 2020-09-18 Doctor Unassigned, [facility] AND TREATMENT 18:41:22 [facility] GAMMA GLUTAMYLTRANSFERASE 2020-05-24 Jules Serenity [facility] 20:15:00 Medical Branch FERRITIN SERUM 2020-05-24 Vicente [facility] 20:15:00 Medical Branch IONIZED CALCIUM 2020-05-24 Vicente, [facility] 20:15:00 Medical Branch CERULOPLASMIN 2020-05-24 [facility] 20:15:00 Medical Branch ALPHA 1 ANTITRYPSIN 2020-05-24 [facility] 20:15:00 Medical Branch HEPATIC FUNCTION PANEL 2020-05-24 Jules Serenity [facility] ([id number]) (ALB,T.PRO,BILI 20:15:00 Medical Branch T,BU/BC,ALT,AST,ALK PHOS) BASIC METABOLIC PANEL (NA, K, 2020-05-24 Vicente, [facility] CL, CO2, GLUCOSE, BUN, 20:15:00 Medical B ranch CREATININE, CA) ALPHA FETOPROTEIN 2020-05-24 Vicente, [facility] 20:15:00 Medical Branch IRON PANEL 2020-05-24 Vicente, [facility] 20:15:00 Medical Branch CBC WITH DIFF 2020-05-24 [facility] 20:[facility] Medical Branch PROTHROMBIN TIME / INR 2020-05-24 Vicente, [facility] 20:15:00 Medical Branch ACTIVATED PARTIAL THRMPLAS 2020-05-24 Vicente, Serenity [facility] MAY[facility]O 20:15:00 Medical Branch HEPATITIS B SURFACE ANTIBODY 2020-05-24 Vicente, [facility] 20:15:00 Medical Branch HEPATITIS B SURFACE ANTIGEN 2020-05-24 Vicente, Umair [facility] 20:15:00 Medical Branch HCV ANTIBODY 2020-05-24 [facility] 20:15:00 Medical Branch HBC ANTIBODY (IGM & IGG) 2020-05-24 Vicente, Umair [facility] 20:15:00 Medical Branch HEPATITIS B CORE ANTIBODY IGM 2020-05-24 Vicente, [facility] 20:15:00 Medical Branch HAV ANTIBODY (IGG AND IGM) 2020-05-24 Vicente, Umair [facility] 20:15:00 Medical Branch PHYSICIAN ORDERS 2020-05-24 Doctor Unassigned, [facility] 05:01:00 [facility] [place] MR ABDOMEN W WO CONTRAST 2020-02-13 Arjun Marin [facility] 17:07:21 Medical Branch ASSIGNMENT OF BENEFITS 2020-02-13 Doctor Unassigned, [facility] 15:38:[address] [facility] [place] [address] HEAD WO CONTRAST 2020-01-24 [facility] [place] 15:51:03 Medical Branch TROPONIN I 2020-01-24 [facility] xas 15:42:00 Medical Branch HEPATIC FUNCTION PANEL 2020-01-24 Sagar [facility] ([id number]) (ALB,T.PRO,BILI 15:42:00 Medical Branch T,BU/BC,ALT,AST,ALK PHOS) BASIC METABOLIC PANEL (NA, K, 2020-01-24 Estrellita Keith [facility] CL, CO2, GLUCOSE, BUN, 15:42:00 Medical B ranch CREATININE, CA) CBC WITH DIFFERENTIAL 2020-01-24 Estrellita Keith [facility] 15:42:00 Medical Branch PROTHROMBIN TIME / INR 2020-01-24 Estrellita Keith [facility] 15:42:00 Medical Branch ACTIVATED PARTIAL THRMPLAS 2020-01-24 Estrellita Keith [facility] MAY[place] 15:42:00 Medical Branch N-TERMINAL PRO-BNP 2020-01-24 Sagar [facility] 15:42:00 Medical Branch NOTICE OF PRIVACY PRACTICES 2020-01-24 Doctor Unassigned, [facility] 15:12:23 [facility] CONSENT/REFUSAL FOR DIAGNOSIS 2020-01-24 Doctor Unassigned, [facility] AND TREATMENT 15:12:[address] [facility] [address] ABDOMEN PELVIS W CONTRAST 2019-11-13 Ayah Stevens [facility] 21:53:08 Medical Branch LIPASE 2019-11-13 Ayah Stevens [facility] 21:09:00 Medical Branch COMP. METABOLIC PANEL ([id number]) 2019-11-13 Ayah Stevens [facility] 21:09:00 Medical Branch CBC WITH DIFFERENTIAL 2019-11-13 Ayah Stevens [facility] 21:09:00 Medical Branch URINALYSIS 2019-11-13 Ayah Stevens [facility] 21:09:00 Medical Branch CONSENT/REFUSAL FOR DIAGNOSIS 2019-11-13 Doctor Unassigned, [facility] AND TREATMENT 20:30:36 [facility] XR CHEST 1 VW 2019-04-21 Javier Galeano [facility] 20:23:50 Medical Branch NOTICE OF PRIVACY PRACTICES 2019-04-21 Doctor Unassigned, [facility] 19:53:43 [facility] CONSENT/REFUSAL FOR DIAGNOSIS 2019-04-21 Doctor Unassigned, [facility] AND TREATMENT 19:53:30 [facility] Encounters Start End Encounter Admission Attending Care Care Encounter Source Date/Time Date/Time Type Type Clinicians Facility Department ID 2021-06-[address] [facility] [id number] Univers 20:02:07 ity [facility] 2022-01-21 2022-01-21 Emergency [facility] [id number] Univers 13:33:00 18:34:00 SHAYY ity [facility] 2022-01-21 2022-01-21 Emergency [facility] [id number] Univers 13:33:00 18:34:00 Shayy SCHMIDT [id number] ity [facility] [place] [id number] [facility] [address] [place] 2021-08-12 2021-08-12 [facility] [id number] Univers 13:00:00 13:00:00 STEVE bowling [facility] 2021-08-12 2021-08-12 Imm/Inj Nurse, Joy Pob Immunization RUST [id number] Univers 13:00:00 13:00:00 Visit Steve Guaman 350.1.13 .10 ity [facility] [place] [phone] Me dical NAL 421 Branch BUILDING 2021-03-24 2021-03-24 Outpatient WILTON SEGURA [facility]BL [address] 09:48:00 13:57:00 CARLOS ALBERTO 2020-11-02 2020-11-02 Patient Deniz RUST [id number] Univers 00:00:00 00:00:00 Outreach Setve ALBERTO [id number] i ty of [place] [facility] [place] [phone] Me dical [address] [place] 2020-10-28 2020-10-28 Laboratory Lab, Joy Fam Pob I RUST 1.2. [id number] [id number] Univers 09:33:47 09:53:47 Only Margie Goode [facility] [id number] ity of [place] 4.2.7.2.686 [place] as Professio [phone] Me dical nal 0[address] Branch Office Building One 2020-10-28 2020-10-[address] [facility] [id number] Univers 09:40:00 09:40:00 [id number] ity of [facility] 2020-10-28 2020-10-28 Outpatient R CEDRIC, [facility] [id number] Univers 09:40:00 09:40:00 MARGIE ity [facility] 2020-10-28 2020-10-28 Letter Doctor SANDRA 1.2.840.114 [id number] Univers 00:00:00 00:00:00 (Out) Unassigned, MASOOD 350.1.13.10 ity of [place] [facility] 4.2.7.2.686 [place] as [phone] [address] 2020-10-28 2020-10-28 Letter Doctor SANDRA 1.2.840.114 [id number] Univers 00:00:00 00:00:00 (Out) Unassigned, MASOOD 350.1.13.10 ity of [place] [facility] 4.2.7.2.686 [place] as [phone] [address] 2020-10-24 2020-10-24 Telemedici [facility] [id number] Univers 15:48:40 16:18:40 ne Visit Sendmario Schmidt [id number] it[place] [phone] [address] 2020-10-24 2020-10-24 Outpatient R [facility] [id number] Univers 15:00:00 15:00:00 SENDIL [id number] ity [facility] 2020-10-24 2020-10-24 Outpatient R [facility] [id number] Univers 15:00:00 15:00:00 SENDIL ity [facility] 2020-10-09 2020-10-09 Telephone Sarah Beth [place] [id number] Univers 00:00:00 00:00:00 Sendil Sondra Schmidt 350.1.13.10 [place] [phone] Oh dical nal 059 [facility] 2020-09-30 2020-09-[address] [facility] [id number] Univers 08:00:00 08:00:00 [id number] ity of [facility] 2020-09-30 2020-09-[address] [facility] [id number] Univers 08:00:00 08:00:00 ity of [facility] 2020-09-30 2020-09-30 Orders Doctor SANDRA 1.2.840.114 [id number] Univers 00:00:00 00:00:00 Only Unassigned, MASOOD 350.1.13.10 ity of [facility] 4.2.7.2.686 [place] as [phone] [facility] [address] [place] 2020-09-19 2020-09-19 Office [facility] 1.2.840.114 [id number] Univers 13:21:26 14:14:00 Visit Aaliyah Schmidt 350.1.13.10 ity [facility] 4.2.7.2.686 [facility] [phone] Oh dical nal 059 [facility] 2020-09-19 2020-09-19 Outpatient R [facility] [id number] Univers 13:30:00 13:30:00 SENDIL [id number] ity of [facility] 2020-09-19 2020-09-19 Outpatient R [facility]AH [facility] [id number] Univers 13:30:00 13:30:00 SENDIL ity of [facility] 2020-09-18 2020-09-18 Emergency [facility] [id number] Univers 12:48:00 16:59:00 Estrellita Schmidt 350.1.13.10 i ty [place] [id number] [facility] [address] [place] 2020-05-24 2020-05-27 Hostess Cashier Roberto, Joy Lab Main [place]UST 1.2.8 40.114 [id number] Univers 14:41:25 09:09:51 Visit Serenity Vicente 350.1.13.10 ity of [place] [phone] Me dical nal 353 [facility] 2020-05-24 2020-05-[address] [facility] [id number] Univers 14:30:00 14:30:00 ity [facility] 2020-05-24 2020-05-24 Outpatient [facility] [id number] Univers 14:30:00 14:30:00 SERENITY ity [facility] 2020-05-24 2020-05-24 Orders Doctor SANDRA 1.2.840.114 [id number] Univers 00:00:00 00:00:00 Only Unassigned, MASOOD 350.1.13.10 ity of [place] [facility] 4.2.7.2.686 [place] as [phone] [address] 2020-02-13 2020-02-13 [facility] [id number] Univers 10:39:59 23:59:00 ARJUN ity [facility] 2020-02-13 2020-02-13 [facility] 1.2.840.114 [id number] Univers 10:39:00 23:59:00 Encounter Arjun Schmidt 350.1.13.10 ity [facility] [place]2.[place] [phone] [facility] [address] [place] 2020-02-13 2020-02-13 Orders Doctor FLORES 1.2.840.114 [id number] Univers 00:00:00 00:00:00 Only Unassigned, MASOOD 350.1.13.10 ity of [place] [facility] 4.2.7.2.686 [place] as [phone] [facility] [address] [place] 2020-01-31 2020-01-31 Letter Unknown, RUST 1.2.840.114 [id number] Univers 00:00:00 00:00:00 (Out) Attending Pepe 350.1.13.10 ity [facility] [place]2.7.2.[place] [phone] Oh dical nal 092 [facility] 2020-01-24 2020-01-24 Emergency [facility] [id number] Univers 10:22:00 12:33:00 Estrellita Schmidt 350.1.13.10 i ty of [place] 4.2.7.2.686 [facility] [id number] [address] 2020-01-24 2020-01-24 Emergency X SAGAR, RUST ERT [id number] Univers 10:22:00 12:33:00 ESTRELLITA zapatay of [facility] 2020-01-24 2020-01-24 Orders Doctor SANDRA 1.2.840.114 [id number] Univers 00:00:00 00:00:00 Only Unassigned, MASOOD 350.1.13.10 ity of [place] [facility] 4.2.7.2.686 [facility] [phone] [address] 2019-11-13 2019-11-13 Emergency X HILDA, [place] ERT [id number] Univers 15:52:45 17:24:00 AYAH bowling of [facility] 2019-11-13 2019-11-13 Emergency [facility] [id number] Univers 15:52:45 17:24:00 Ayah Schmidt 350.1.13.10 i ty of [place] [address] [place] [phone] 2019-04-21 2019-04-21 Emergency [facility] [id number] Univers 15:03:10 15:40:00 Javier Schmidt 350.1.13.10 i ty of [place] [address] [place] [phone] Results Test Description Test Time Test Comments Results Result Comments Source CBC WITH DIFF 2022-01-21 21:02:14 Test Item Value Reference Range Interpretation Comme nts WBC (test code = 6690-2) See_Comment [A utomated message] The system which generated this result transmitted ref erence range: 4.20 - 10.70 10*3/?L . The reference range was not u sed to interpret this result as normal/abnormal. RBC (test code = 789-8) See_Comment [Au tomated message] The system which generated this result transmitted ref erence range: 4.26 - 5.52 10*6/?L. The reference range was not u sed to interpret this result as normal/abnormal. HGB (test code = 718-7) 14.3 g/dL 12.2-16.4 HCT (test code = 4544-3) 42.7 % 38.4-49.3 MCV (test code = 787-2) 94.5 fL 81.7-95.6 MCH (test code = 785-6) 31.6 pg 26.1-32.7 MCHC (test code = 786-4) 33.5 g/dL 31.2-35.0 RDW-SD (test code = 43.6 fL 38.5-51.6 32409-0) RDW-CV (test code = 12.7 % 12.1-15.4 788-0) PLT (test code = 777-3) See_Comment [Au tomated message] The system which generated this result transmitted ref erence range: 150 - 328 10*3/?L. The reference range was not u sed to interpret this result as normal/abnormal. MPV (test code = 79055-3) 11.1 fL 9.8-13.0 NRBC/100 WBC (test code = See_Comment [ Automated message] The system [id number]) which generated this result transmitted ref erence range: 0.0 - 10.0 /100 WBC s. The reference range was not u sed to interpret this result as normal/abnormal. NRBC x10^3 (test code = <0.01 See_Comment [Au tomated message] The system [id number]) which generated this result transmitted ref erence range: 10*3/?L. The re ference range was not used to int erpret this result as normal/abnor mal. GRAN MAT (NEUT) % (test 63.8 % code = 770-8) IMM GRAN % (test code = 0.60 % 5799220257) LYMPH % (test code = 24.6 % 736-9) MONO % (test code = 8.3 % 5905-5) EOS % (test code = 713-8) 2.1 % BASO % (test code = 0.6 % 706-2) GRAN MAT x10^3(ANC) (test 5.54 10*3/uL 1.99-6.95 code = 9221792805) IMM GRAN x10^3 (test code 0.05 10*3/uL 0.00-0.06 = 8177181851) LYMPH x10^3 (test code = 2.13 10*3/uL 1.09-3.23 731-0) MONO x10^3 (test code = 0.72 10*3/uL 0.36-1.02 742-7) EOS x10^3 (test code = 0.18 10*3/uL 0.06-0.53 711-2) BASO x10^3 (test code = 0.05 10*3/uL 0.01-0.09 704-7) [facility] (58051)2022-01-21 20:55:52 Test Item Value Reference Range Interpretation Comments NA (test code = 142 mmol/L 135-145 1928144733) K (test code = 4.4 mmol/L 3.5-5.0 3293416012) CL (test code = 105 mmol/L 98-108 5414172932) CO2 TOTAL (test code 26 mmol/L 23-31 = 3290880914) AGAP (test code = 2-16 6862124965) BUN (test code = 16 mg/dL 7-23 9845195873) GLUCOSE (test code = 95 mg/dL 70-110 1128843529) CREATININE (test code 0.79 mg/dL 0.60-1.25 = 3583475068) TOTAL BILI (test code 0.5 mg/dL 0.1-1.1 = 5541342584) CALCIUM (test code = 9.1 mg/dL 8.6-10.6 5910089304) T PROTEIN (test code 8.1 g/dL 6.3-8.2 = 7591849249) ALBUMIN (test code = 4.2 g/dL 3.5-5.0 0312138974) ALK PHOS (test code = 78 U/L 34-122 1834623823) ALTv (test code = 18 U/L 5-50 1742-6) AST(SGOT) (test code 21 U/L 13-40 = 1778689420) eGFR (test code = mL/min/1.73m2 6488673065) HEATHER (test code = HEATHER) Association of Glomerular Filtration Rate (GFR) and Staging of Kidney Disease* + + +- +| GFR (mL/min/1.73 m2) ?| With Kidney Damage ?| ?Without Kidney Damage+ ------+ ----+ ------+| ?>90 ?| ?Stage one ?| ? Normal ?+ -+ + -+| ?60-89 ?| ?Stage two ?| ? Decreased GFR ? + + +- +| ?30-59 ?| ?Stage three ?| ? Stage three ? + + +- +| ?15-29 ?| ?Stage four ? | ? Stage four ?+ -+ + -+| ?<15 (or dialysis) ? ?| ?Stage five ? | ? Stage five ?+ -+ + -+ *Each stage assumes the associated GFR level has been in effect for at least three months. ?Stages 1 to 5, with or without kidney disease, indicate chronic kidney disease. Notes: Determination of stages one and two (with eGFR >59mL/min/1.73 m2) requires estimation of kidney damage for at least three months as defined by structural or functional abnormalities of the kidney, manifested by either:Pathological abnormalities or Markers of kidney damage (including abnormalities in the composition of the blood or urine or abnormalities in imaging tests). [facility] 20[facility]37 Test Item Value Reference Range Interpretation Comments LIPASE (test code = 3610541579) 70 U/L 0-220 Lab Interpretation (test code = Normal 90255-4) [facility] [id number] 22:32:00 Test Item Value Reference Range Interpretation Comments TROPONIN I (test <0.012 See_Comment [Automated code = 6985584151) message] The system which generated this result transmitted reference range : <=0.034 ng/mL. The reference range was not used to interpr et this result as normal/abnormal . HEATHER (test code = Equal or Less than HEATHER) 0.034 ng/ml---Normal ?Note: Cardiac troponin begins to rise 3-4 hours after the onset of ischemia. Repeat in 4-6 hours if the sample was drawn within 3-4 hours of the onset of the symptom and found normal. Between 0.035 and 0.120 ng/mL--- Borderline. Questionable myocardial injury or necrosis ? ?Note: Serial measurement may be necessary to confirm or exclude the diagnosis of myocardial injury or necrosis; Clinical correlation (symptoms, EKGs, imaging studies, and others) required; Repeat in 4-6 hours if clinically indicated. ? Equal or Higher than 0.121 ng/mL---Abnormal. Myocardial Injury or Necrosis Likely ? Biotin has been reported to cause a negative bias, interpret results relative to patient's use of biotin. ? Lab Interpretation Normal (test code = 18683-9) [facility]-[id number] 20:17:00 Test Item Value Reference Interpretation Comments Range D-DIMER (test code = <0.27 See_Comment [Autom ated [id number]) message] The system which generated this result transmitted reference range : <0.41 ?g/mL (FEU). The reference range was not used to interpret this result as normal/abnormal . HEATHER (test code = This test may be HEATHER) used in conjunction with a clinical pretest probability (PTP) assessment model to exclude venous thromboembolism (VTE) in patients suspected of deep venous thrombosis (DVT) and pulmonary embolism (PE) A D-Dimer value less than 0.50 ?g/ml (FEU) has a negative predicative value of 96 to 100% (95% CI)and 97 to 100% (95% CI) as an aid in the diagnosis of deep vein thrombosis (DVT) and pulmonary embolism when there is low or moderate pretest probability of PE or DVT. D-Dimer values are expressed in initial fibrinogen equivalent units (FEU)" The assay results should be used with other information, including the clinical context, in forming a diagnosis. Lab Interpretation Normal (test code = 43053-9) [facility] 1 [id number] 19:37:43HISTORY: Chest pain. TECHNIQUE: Portable AP erect view of the chest is obtained. Comparison ismade with 04/21/2019 study. FINDINGS: No acute pneumonia. No pneumothorax or pleural effusion orpulmonary congestion detected. Cardiac size is within upper normal limits. CONCLUSIONS: No signs of acute cardiopulmonary disease.[facility], Radiant Results Inft User - 09/18/2020 1:38 PM CSTHISTORY: Chest pain.TECHNIQ UE: Portable AP erect view of the chest is obtained. Comparison ismade with 04/21/2019 study.FINDINGS: No acute pneumonia. No pneumothorax or pleural effusion orpulmonary congestion detected. Cardiac size is within upper normal limits. CONCLUSIONS: No signs of acute cardiopulmonary disease.[facility] BrookTroponin [id number] 19:37:00 Test Item Value Reference Range Interpretation Comments TROPONIN I (test <0.012 See_Comment [Automated code = 7018093261) message] The system which generated this result transmitted reference range : <=0.034 ng/mL. The reference range was not used to interpr et this result as normal/abnormal . HEATHER (test code = Equal or Less than HEATHER) 0.034 ng/ml---Normal ?Note: Cardiac troponin begins to rise 3-4 hours after the onset of ischemia. Repeat in 4-6 hours if the sample was drawn within 3-4 hours of the onset of the symptom and found normal. Between 0.035 and 0.120 ng/mL--- Borderline. Questionable myocardial injury or necrosis ? ?Note: Serial measurement may be necessary to confirm or exclude the diagnosis of myocardial injury or necrosis; Clinical correlation (symptoms, EKGs, imaging studies, and others) required; Repeat in 4-6 hours if clinically indicated. ? Equal or Higher than 0.121 ng/mL---Abnormal. Myocardial Injury or Necrosis Likely ? Biotin has been reported to cause a negative bias, interpret results relative to patient's use of biotin. ? Lab Interpretation Normal (test code = 49285-1) [facility] Test Item Value Reference Range Interpretation Comments APTT Patient (test See_Comment [Automat ed code = 3173-2) message] The system which generated this result transmitted reference range : 23 - 38 Seconds . The reference range was not used to interpr et this result as normal/abnormal . HEATHER (test code = HEATHER) The [facility] patient population mean normal value for aPTT is 30 seconds. Lab Interpretation Normal (test code = 39322-3) [facility] Brook[facility]thrombin Time (PT) / [id number] 19:30:00 Test Item Value Reference Range Interpretation Comments PROTIME PATIENT (test See_Comment [Auto mated message] code = 5964-2) The system wh ich generated this result transmitted ref erence range: 12.0 - 1 4.7 Seconds. The re ference range was not u sed to interpret this result as normal/abnor mal. INR (test code = 6301-6) Nor mal INR <1.1; Warfarin Therap eutic range 2.0 to 3. 0 or 2.5 to 3.5, dep ending upon the indica tions. Lab Interpretation (test Normal code = 54584-7) [facility] (NA, K, CL, CO2, GLUCOSE, BUN, CREATININE, CA)2020-09-18 19:26:00 Test Item Value Reference Range Interpretation Comments NA (test code = 140 mmol/L 135-145 2807563291) K (test code = 4.1 mmol/L 3.5-5 1964830552) CL (test code = 104 mmol/L 98-108 1661396347) CO2 TOTAL (test code = 26 mmol/L 23-31 3573444180) AGAP (test code = 2-16 3138542022) BUN (test code = 17 mg/dL 7-23 7559613009) GLUCOSE (test code = 110 mg/dL 70-110 1527325672) CREATININE (test code 0.84 mg/dL 0.6-1.25 = 3986356251) CALCIUM (test code = 9.0 mg/dL 8.6-10.6 4226617313) eGFR Calculation mL/min/1.73m2 (Non-) (test code = 4988051117) eGFR Calculation mL/min/1.73m2 () (test code = 6050445371) HEATHER (test code = HEATHER) Association of Glomerular Filtration Rate (GFR) and Staging of Kidney Disease* + -+ + ---+| GFR (mL/min/1.73 m2) ?| With Kidney Damage ?| ?Without Kidney Damage+ -------+ ------+ ---------+| ?>90 ?| ?Stage one ?| ? Normal ?+ --+ -+ ----+| ?60-89 ?| ?Stage two ?| ? Decreased GFR ? + -+ + ---+| ?30-59 ?| ?Stage three ?| ? Stage three ? + -+ + ---+| ?15-29 ?| ?Stage four ? | ? Stage four ?+ --+ -+ ----+| ?<15 (or dialysis) ? ?| ?Stage five ? | ? Stage five ?+ --+ -+ ----+ *Each stage assumes the associated GFR level has been in effect for at least three months. ?Stages 1 to 5, with or without kidney disease, indicate chronic kidney disease. Notes: Determination of stages one and two (with eGFR >59mL/min/1.73 m2) requires estimation of kidney damage for at least three months as defined by structural or functional abnormalities of the kidney, manifested by either:Pathological abnormalities or Markers of kidney damage (including abnormalities in the composition of the blood or urine or abnormalities in imaging tests). [facility] (ALB, T.PRO, BILI T, BU/BC, ALT, AST, ALK PHOS)2020-09-18 19:26:00 Test Item Value Reference Range Interpretation Comments TOTAL BILI (test code = 0746510732) 0.8 mg/dL 0.1-1.1 BILI UNCON (test code = 4210651971) 0.8 mg/dL 0.1-1.1 BILI CONJ (test code = 0467290307) 0.0 mg/dL 0-0.3 T PROTEIN (test code = 4663000121) 8.4 g/dL 6.3-8.2 H ALBUMIN (test code = 6690798455) 4.3 g/dL 3.5-5 ALK PHOS (test code = 6171419682) 76 U/L 34-122 ALTv (test code = 1742-6) 25 U/L 5-50 AST(SGOT) (test code = 5817141904) 25 U/L 13-40 Lab Interpretation (test code = Abnormal 93078-2) [facility] with [id number] 19:15:00 Test Item Value Reference Range Interpretation Comments WBC (test code = See_Comment [Automated 7290-2) message] The sy stem which generated this result transmitted reference range : 4.20 - 10.70 10*3/?L. The reference range was not used to interpret this result as normal/abnormal . RBC (test code = See_Comment [Automated 789-8) message] The sy stem which generated this result transmitted reference range : 4.26 - 5.52 10*6/?L. The reference range was not used to interpret this result as normal/abnormal . HGB (test code = 14.5 g/dL 12.2-16.4 718-7) HCT (test code = 40.9 % 38.4-49.3 4544-3) MCV (test code = 90.9 fL 81.7-95.6 787-2) MCH (test code = 32.2 pg 26.1-32.7 785-6) MCHC (test code = 35.5 g/dL 31.2-35 H 786-4) RDW-SD (test code = 40.2 fL 38.5-51.6 99182-4) RDW-CV (test code = 12.1 % 12.1-15.4 788-0) PLT (test code = See_Comment [Automated 777-3) message] The sy stem which generated this result transmitted reference range : 150 - 328 10*3/ ?L. The reference r roxi was not used to interpret this result as normal/abnormal . MPV (test code = 11.0 fL 9.8-13 51233-1) NRBC/100 WBC (test See_Comment [Automat ed code = 8476696799) message] The system which generated this result transmitted reference range : 0.0 - 10.0 /100 WBCs. The refer ence range was not u sed to interpret th is result as normal/abnormal . NRBC x10^3 (test code <0.01 See_Comment [Auto mated = 9577841334) message] The s ystem which generated this result transmitted reference range : 10*3/?L. The reference range was not used to interpret this result as normal/abnormal . GRAN MAT (NEUT) % 67.8 % (test code = 770-8) IMM GRAN % (test code 0.40 % = 8288107788) LYMPH % (test code = 22.8 % 736-9) MONO % (test code = 7.4 % 5905-5) EOS % (test code = 1.2 % 713-8) BASO % (test code = 0.4 % 706-2) GRAN MAT x10^3(ANC) 5.31 10*3/uL 1.99-6.95 (test code = 2340389939) IMM GRAN x10^3 (test 0.03 10*3/uL 0-0.06 code = 9971565220) LYMPH x10^3 (test code 1.78 10*3/uL 1.09-3.23 = 731-0) MONO x10^3 (test code 0.58 10*3/uL 0.36-1.02 = 742-7) EOS x10^3 (test code = 0.09 10*3/uL 0.06-0.53 711-2) BASO x10^3 (test code 0.03 10*3/uL 0.01-0.09 = 704-7) Lab Interpretation Abnormal (test code = 07790-1) [facility] 1 [id number] 14:54:00 Test Item Value Reference Range Interpretation Comments Anti-Trypsin (test code = 118 mg/dL 83-199 2774489495) Lab Interpretation (test code = Normal 32683-8) [facility]ERULOPLASMIN2020-10-03 14:53:00 Test Item Value Reference Range Interpretation Comments CERULO (test code = 9425404090) 25 mg/dL 25-63 Lab Interpretation (test code = Normal 43646-0) [facility] BrookHAV ANTIBODY (IGG AND IGM)2020-05-25 04:16:00 Test Item Value Reference Range Interpretation Comments HAV Total (test code Positive = 6628601418) HAVT Semi-Quantitative (test code = 0334477148) HEATHER (test code = HEATHER) Indicates past or present infection with HAV or exposure to HAV due to vaccination. [facility]BC ANTIBODY (IGM & IGG)2020-05-25 04:07:00 Test Item Value Reference Range Interpretation Comments HBC (test code = 8463509843) Negative HBC Semi-Quantitative (test code = 0768058221) [facility] BrookHCV [id number] 04:07:00 Test Item Value Reference Range Interpretation Comments HCV Ab (test code = 29056-8) Negative HCV Semi-Quantitative (test code = 33685-7) [facility] BrookHEPATITIS B SURFACE [id number] 04:07:00 Test Item Value Reference Range Interpretation Comments HBsAB (test code = Negative 3869741098) HBsAb mIU/mL Semi-Quantitative (test code = 4578187626) HEATHER (test code = Interpretation: HEATHER) ?Hepatitis B Surface Antibody ? Negative - Patient is considered to be not immune to infection with HBV. ? ? Positive - Anti-HBs detected at greater than or equal to 12 mIU/mL. ?Patient is considered to be immune to infection with HBV. ? [facility] BrookALPHA [id number] 03:55:00 Test Item Value Reference Range Interpretation Comments AFP (test code = 2.5 ng/mL See_Comment [Automated 6336601039) message] The system which generated this result transmitted reference range : <=7.5. The reference range was not used to interpret this result as normal/abnormal . HEATHER (test code = HEATHER) Biotin has been reported to cause a negative bias, interpret results relative to patient's use of biotin. Lab Interpretation Normal (test code = 28956-6) [facility] BrookHEPATITIS B CORE ANTIBODY [id number] 03:55:00 Test Item Value Reference Range Interpretation Comments HBCM Negative Semi-Quantitative (test code = 22158-8) HEATHER (test code = Biotin has been reported HEATHER) to cause a negative bias, interpret results relative to patient's use of biotin. [facility] BrookHEPATITIS B SURFACE [id number] 03:49:00 Test Item Value Reference Range Interpretation Comments HBsAg Semi-Quantitative (test code = Negative Negative 5195-3) [facility] BrookIONIZED [id number] 03:03:00 Test Item Value Reference Range Interpretation Comments IONIZED CA (test code = 4.80 mg/dL 4.5-5.3 5344004944) PH SERUM (test code = 0150144846) 7.35-7.45 L Lab Interpretation (test code = Abnormal 22091-4) [facility] BrookFERRITIN [id number] 22:25:00 Test Item Value Reference Range Interpretation Comments FERRITIN (test code = 282.0 ng/mL 18-464 6518406982) HEATHER (test code = HEATHER) Biotin has been reported to cause a negative bias, interpret results relative to patient's use of biotin. Lab Interpretation (test Normal code = 22756-3) [facility] BrookIRON [id number] 22:01:00 Test Item Value Reference Range Interpretation Comments IRON (test code = 5212394137) 82 ug/dL 50-160 TIBC (test code = 5534100382) 267 ug/dL 250-410 % FE SAT (test code = 9612511129) 31 % 20-50 Lab Interpretation (test code = Normal 90249-5) [facility] BrookHEPATIC FUNCTION PANEL (80397) (ALB,T.PRO,BILI T,BU/BC,ALT,AST,ALK PHOS)2020-05-24 21:53:00 Test Item Value Reference Range Interpretation Comments TOTAL BILI (test code = 0014842010) 0.5 mg/dL 0.1-1.1 BILI UNCON (test code = 9755332328) 0.4 mg/dL 0.1-1.1 BILI CONJ (test code = 8715680180) 0.0 mg/dL 0-0.3 T PROTEIN (test code = 4311727140) 7.4 g/dL 6.3-8.2 ALBUMIN (test code = 4811085833) 3.6 g/dL 3.5-5 ALK PHOS (test code = 0305225999) 78 U/L 34-122 ALTv (test code = 1742-6) 21 U/L 5-50 AST(SGOT) (test code = 6813810361) 21 U/L 13-40 Lab Interpretation (test code = Normal 97297-9) [facility]IC METABOLIC PANEL (NA, K, CL, CO2, GLUCOSE, BUN, CREATININE, CA)2020-05-24 21:52:00 Test Item Value Reference Range Interpretation Comments NA (test code = 141 mmol/L 135-145 8327995573) K (test code = 3.9 mmol/L 3.5-5 8326164688) CL (test code = 104 mmol/L 98-108 8771005094) CO2 TOTAL (test code = 28 mmol/L 23-31 2746698184) AGAP (test code = 2-16 4785525774) BUN (test code = 16 mg/dL 7-23 7868674508) GLUCOSE (test code = 100 mg/dL 70-110 0689671098) CREATININE (test code 0.85 mg/dL 0.6-1.25 = 7804857949) CALCIUM (test code = 9.3 mg/dL 8.6-10.6 3303505610) eGFR Calculation mL/min/1.73m2 (Non-) (test code = 3356076833) eGFR Calculation mL/min/1.73m2 () (test code = 4209231782) HEATHER (test code = HEATHER) Association of Glomerular Filtration Rate (GFR) and Staging of Kidney Disease* + -+ + ---+| GFR (mL/min/1.73 m2) ?| With Kidney Damage ?| ?Without Kidney Damage+ -------+ ------+ ---------+| ?>90 ?| ?Stage one ?| ? Normal ?+ --+ -+ ----+| ?60-89 ?| ?Stage two ?| ? Decreased GFR ? + -+ + ---+| ?30-59 ?| ?Stage three ?| ? Stage three ? + -+ + ---+| ?15-29 ?| ?Stage four ? | ? Stage four ?+ --+ -+ ----+| ?<15 (or dialysis) ? ?| ?Stage five ? | ? Stage five ?+ --+ -+ ----+ *Each stage assumes the associated GFR level has been in effect for at least three months. ?Stages 1 to 5, with or without kidney disease, indicate chronic kidney disease. Notes: Determination of stages one and two (with eGFR >59mL/min/1.73 m2) requires estimation of kidney damage for at least three months as defined by structural or functional abnormalities of the kidney, manifested by either:Pathological abnormalities or Markers of kidney damage (including abnormalities in the composition of the blood or urine or abnormalities in imaging tests). [facility] BrookGAMMA [id number] 21:52:00 Test Item Value Reference Range Interpretation Comments GGT (test code = 6592337352) 41 U/L 13-58 Lab Interpretation (test code = Normal 88923-2) [facility]aPTT2020-10-02 20:33:00 Test Item Value Reference Range Interpretation Comments APTT Patient (test See_Comment [Automat ed code = 3173-2) message] The system which generated this result transmitted reference range : 23 - 38 Seconds . The reference range was not used to interpr et this result as normal/abnormal . HEATHER (test code = HEATHER) The [facility] patient population mean normal value for aPTT is 30 seconds. Lab Interpretation Normal (test code = 38276-6) [facility] BrookPROTHROMBIN TIME / [id number] 20:31:00 Test Item Value Reference Range Interpretation Comments PROTIME PATIENT (test See_Comment [Auto mated message] code = 5964-2) The system wh ich generated this result transmitted ref erence range: 12.0 - 1 4.7 Seconds. The re ference range was not u sed to interpret this result as normal/abnor mal. INR (test code = 6301-6) Nor mal INR <1.1; Warfarin Therap eutic range 2.0 to 3. 0 or 2.5 to 3.5, dep ending upon the indica tions. Lab Interpretation (test Normal code = 02450-3) [facility] BrookCBC WITH [id number] 20:29:00 Test Item Value Reference Range Interpretation Comments WBC (test code = See_Comment [Automated 8790-2) message] The sy stem which generated this result transmitted reference range : 4.20 - 10.70 10*3/?L. The reference range was not used to interpret this result as normal/abnormal . RBC (test code = See_Comment [Automated 949-8) message] The sy stem which generated this result transmitted reference range : 4.26 - 5.52 10*6/?L. The reference range was not used to interpret this result as normal/abnormal . HGB (test code = 13.7 g/dL 12.2-16.4 718-7) HCT (test code = 40.8 % 38.4-49.3 4544-3) MCV (test code = 95.3 fL 81.7-95.6 787-2) MCH (test code = 32.0 pg 26.1-32.7 785-6) MCHC (test code = 33.6 g/dL 31.2-35 786-4) RDW-SD (test code = 45.3 fL 38.5-51.6 88509-9) RDW-CV (test code = 13.0 % 12.1-15.4 788-0) PLT (test code = See_Comment [Automated 777-3) message] The sy stem which generated this result transmitted reference range : 150 - 328 10*3/ ?L. The reference r roxi was not used to interpret this result as normal/abnormal . MPV (test code = 11.2 fL 9.8-13 02458-1) NRBC/100 WBC (test See_Comment [Automat ed code = 4244316103) message] The system which generated this result transmitted reference range : 0.0 - 10.0 /100 WBCs. The refer ence range was not u sed to interpret th is result as normal/abnormal . NRBC x10^3 (test code <0.01 See_Comment [Auto mated = 4607376629) message] The s ystem which generated this result transmitted reference range : 10*3/?L. The reference range was not used to interpret this result as normal/abnormal . GRAN MAT (NEUT) % 58.1 % (test code = 770-8) IMM GRAN % (test code 0.50 % = 3944674491) LYMPH % (test code = 25.8 % 736-9) MONO % (test code = 7.7 % 5905-5) EOS % (test code = 7.2 % 713-8) BASO % (test code = 0.7 % 706-2) GRAN MAT x10^3(ANC) 4.44 10*3/uL 1.99-6.95 (test code = 9144395748) IMM GRAN x10^3 (test 0.04 10*3/uL 0-0.06 code = 3662337028) LYMPH x10^3 (test code 1.97 10*3/uL 1.09-3.23 = 731-0) MONO x10^3 (test code 0.59 10*3/uL 0.36-1.02 = 742-7) EOS x10^3 (test code = 0.55 10*3/uL 0.06-0.53 H 711-2) BASO x10^3 (test code 0.05 10*3/uL 0.01-0.09 = 704-7) Lab Interpretation Abnormal (test code = 69732-9) [facility]MR ABDOMEN W WO [id number] 17:54:06 HISTORY: Liver lesion. TECHNIQUE: MRI studies of the abdomen were obtained using T2 SSFSE, dualecho FSPGR, coronal VIBE/T2 HASTE, axial DWI, axial LAVA/T2 HASTEsequences. Multiphase contrast enhanced fat-sat LAVA sequences werecompleted after intravenous injection of 20 mL of MultiHance. FINDINGS: Comp arison is made with CT scan dated 11/13/2019. Visualized lower lungs are clear. No pleural effusion or pericardialeffusion.Short sliding hiatal hernia noted. LIVER: Approximately 14.3 cm in size and showed 3.6 cm size lesion on thedorsal subdiaphragmatic dome of the liver. The lesion showed enhancementcharacteristics consistent with cavernous hemangioma. SPLEEN: Measures 9 x 4 cm and appears normal. GALLBLADDER, BILE DUCTS, PANCREAS, ADRENAL GLANDS: Multiple smallgallstones noted without any evidenceof acute cholecystitis. Biliary ductsand the pancreatic duct appear of normal size. Pancreas appearsnormal. KIDNEYS: Anterior cortex of the interpolar left kidney showed 18 mm Bosniaktype I cyst. Retroperitoneum, visualized intestines and bones appear normal. CONCLUSIONS:1. 3.6 cm lesion in the dorsal subdiaphragmatic right lobe of the liverconsistent with cavernous hemangioma.2. Bosniak type I left renal cyst.3. Gallstones without any evidence of acute cholecystitis.4. Short sliding hiatal hernia. [facility], Radiant Results Inft User - 02/13/2020 12:55 PM CDTHISTORY: Liver lesion.TECHNIQUE: MRI studies of the abdomen were obtained using T2 SSFSE, dualecho FSPGR, coronal VIBE/T2 HASTE, axial DWI, axial LAVA/T2 HASTEsequences. Multiphase contrast enhanced fat-sat LAVA sequences werecompleted after int ravenous injection of 20 mL of MultiHance.FINDINGS: Comparison is made with CT scan dated 11/13/2019.Visualized lower lungs are clear. No pleural effusion or pericardialeffusion.Short sliding hiatal hernia noted.LIVER: Approximately 14.3 cm in size and showed 3.6 cm size lesion on thedorsal subdiaphragmatic dome of the liver. The lesion showed enhancementcharacteristics consistent with cavernous hemangioma.SPLEEN: Measures 9 x 4 cm and appears normal.GALLBLADDER, BILE DUCTS, PANCREAS, ADRENAL GLANDS:Multiple smallgallstones noted without any evidence of acute cholecystitis. Biliary ductsand the pancreatic duct appear of normal size. Pancreas appears normal.KIDNEYS: Anterior cortex of the interpolar left kidney showed 18 mm Bosniaktype I cyst.Retroperitoneum, visualized intestines and bones appearnormal.CONCLUSIONS:1. 3.6 cm lesion in the dorsal subdiaphragmatic right lobe of the liverconsistentwith cavernous hemangioma.2. Bosniak type I left renal cyst.3. Gallstones without any evidence of acute cholecystitis.4. Short sliding hiatal hernia.[facility] Troponin [id number] 16:24:00 Test Item Value Reference Range Interpretation Comments TROPONIN I (test <0.012 See_Comment [Automated code = 1905527621) message] The system which generated this result transmitted reference range : <=0.034 ng/mL. The reference range was not used to interpr et this result as normal/abnormal . HEATHER (test code = Equal or Less than HEATHER) 0.034 ng/ml---Normal ?Note: Cardiac troponin begins to rise 3-4 hours after the onset of ischemia. Repeat in 4-6 hours if the sample was drawn within 3-4 hours of the onset of the symptom and found normal. Between 0.035 and 0.120 ng/mL--- Borderline. Questionable myocardial injury or necrosis ? ?Note: Serial measurement may be necessary to confirm or exclude the diagnosis of myocardial injury or necrosis; Clinical correlation (symptoms, EKGs, imaging studies, and others) required; Repeat in 4-6 hours if clinically indicated. ? Equal or Higher than 0.121 ng/mL---Abnormal. Myocardial Injury or Necrosis Likely ? Biotin has been reported to cause a negative bias, interpret results relative to patient's use of biotin. ? Lab Interpretation Normal (test code = 58558-7) [facility] BrookN-TERMINAL [id number] 16:21:00 Test Item Value Reference Range Interpretation Comments NT-proBNP (test code 38 pg/mL See_Comment [Autom ated = 2962199135) message] The system which generated this result transmitted reference range : <=125. The reference range was not used to interpret this result as normal/abnormal . HEATHER (test code = HEATHER) Biotin has been reported to cause a negative bias, interpret results relative to patient's use of biotin. Lab Interpretation Normal (test code = 64734-3) [facility] (NA, K, CL, CO2, GLUCOSE, BUN, CREATININE, CA)2020-01-24 16:14:00 Test Item Value Reference Range Interpretation Comments NA (test code = 139 mmol/L 135-145 1750561515) K (test code = 4.4 mmol/L 3.5-5 5717051675) CL (test code = 105 mmol/L 98-108 7237318493) CO2 TOTAL (test code = 29 mmol/L 23-31 8748225881) AGAP (test code = 2-16 2993501175) BUN (test code = 13 mg/dL 7-23 2401795042) GLUCOSE (test code = 140 mg/dL 70-110 H 8351571494) CREATININE (test code = 0.87 mg/dL 0.6-1.25 9384461862) CALCIUM (test code = 9.3 mg/dL 8.6-10.6 4823569172) eGFR Calculation mL/min/1.73m2 (Non-) (test code = 7038761741) eGFR Calculation mL/min/1.73m2 () (test code = 1613960638) HEATHER (test code = HEATHER) Association of Glomerular Filtration Rate (GFR) and Staging of Kidney Disease* + --+ --+ ------+| GFR (mL/min/1.73 m2) ?| With Kidney Damage ?| ?Without Kidney Damage+ --------+ --------+ +| ?>90 ?| ?Stage one ?| ? Normal ?+ ---+ ---+ -------+| ?60-89 ?| ?Stage two ?| ? Decreased GFR ? + --+ --+ ------+| ?30-59 ?| ?Stage three ?| ? Stage three ? + --+ --+ ------+| ?15-29 ?| ?Stage four ? | ? Stage four ?+ ---+ ---+ -------+| ?<15 (or dialysis) ? ?| ?Stage five ? | ? Stage five ?+ ---+ ---+ -------+ *Each stage assumes the associated GFR level has been in effect for at least three months. ?Stages 1 to 5, with or without kidney disease, indicate chronic kidney disease. Notes: Determination of stages one and two (with eGFR >59mL/min/1.73 m2) requires estimation of kidney damage for at least three months as defined by structural or functional abnormalities of the kidney, manifested by either:Pathological abnormalities or Markers of kidney damage (including abnormalities in the composition of the blood or urine or abnormalities in imaging tests). Lab Interpretation Abnormal (test code = 61768-4) [facility] (ALB, T.PRO, BILI T, BU/BC, ALT, AST, ALK PHOS)2020-01-24 16:13:00 Test Item Value Reference Range Interpretation Comments TOTAL BILI (test code = 7052517807) 0.7 mg/dL 0.1-1.1 BILI UNCON (test code = 1050882815) 0.9 mg/dL 0.1-1.1 BILI CONJ (test code = 9135652628) 0.0 mg/dL 0-0.3 T PROTEIN (test code = 2707194371) 8.3 g/dL 6.3-8.2 H ALBUMIN (test code = 7802815275) 4.2 g/dL 3.5-5 ALK PHOS (test code = 2775637044) 81 U/L 34-122 ALTv (test code = 1742-6) 16 U/L 5-50 AST(SGOT) (test code = 1497395955) 23 U/L 13-40 Lab Interpretation (test code = Abnormal 97767-6) [facility]aPTT2020-06-[facility] 16:06:00 Test Item Value Reference Range Interpretation Comments APTT Patient (test See_Comment [Automat ed code = 3173-2) message] The system which generated this result transmitted reference range : 23 - 38 Seconds . The reference range was not used to interpr et this result as normal/abnormal . HEATHER (test code = HEATHER) The [facility] patient population mean normal value for aPTT is 30 seconds. Lab Interpretation Normal (test code = 94782-3) [facility] BrookProthrombin Time (PT) / [id number] 16:06:00 Test Item Value Reference Range Interpretation Comments PROTIME PATIENT (test See_Comment [Auto mated message] code = 5964-2) The system [employer] generated this result transmitted ref erence range: 12.0 - 1 4.7 Seconds. The re ference range was not u sed to interpret this result as normal/abnor mal. INR (test code = 6301-6) Nor mal INR <1.1; Warfarin Therap eutic range 2.0 to 3. 0 or 2.5 to 3.5, dep ending upon the indica tions. Lab Interpretation (test Normal code = 31756-8) [facility]CBC WITH [id number] 15:58:00 Test Item Value Reference Range Interpretation Comments WBC (test code = See_Comment [Automated message] 6690-2) The system [employer] generated this result transmitted ref erence range: 4.20 - 1 0.70 10*3/?L. The re ference range was not u sed to interpret this result as normal/abnor mal. RBC (test code = See_Comment [Automated message] 789-8) The system [employer] generated this result transmitted ref erence range: 4.26 - 5 .52 10*6/?L. The re ference range was not u sed to interpret this result as normal/abnor mal. HGB (test code = 14.7 g/dL 12.2-16.4 718-7) HCT (test code = 43.3 % 38.4-49.3 4544-3) MCV (test code = 93.9 fL 81.7-95.6 787-2) MCH (test code = 31.9 pg 26.1-32.7 785-6) MCHC (test code = 33.9 g/dL 31.2-35 786-4) RDW-SD (test code 42.6 fL 38.5-51.6 = 28743-7) RDW-CV (test code 12.4 % 12.1-15.4 = 788-0) PLT (test code = See_Comment [Automated message] 777-3) The system [employer] generated this result transmitted ref erence range: 150 - 32 8 10*3/?L. The re ference range was not u sed to interpret this result as normal/abnor mal. MPV (test code = 11.1 fL 9.8-13 13496-5) NRBC/100 WBC (test See_Comment [Automat ed message] code = 0070680853) The syste m which generated this result transmitted ref erence range: 0.0 - 10 .0 /100 WBCs. The refer ence range was not u sed to interpret this result as normal/abnor mal. NRBC x10^3 (test <0.01 See_Comment [Automated message] code = 2606731642) The syste m which generated this result transmitted ref erence range: 10*3/?L. The reference range was not used to interpr et this result as normal/abnormal . GRAN MAT (NEUT) % 64.9 % (test code = 770-8) IMM GRAN % (test 0.60 % code = 6049439017) LYMPH % (test code 24.4 % = 736-9) MONO % (test code 6.7 % = 5905-5) EOS % (test code = 2.8 % 713-8) BASO % (test code 0.6 % = 706-2) GRAN MAT 4.65 10*3/uL 1.99-6.95 x10^3(ANC) (test code = 1313178170) IMM GRAN x10^3 0.04 10*3/uL 0-0.06 (test code = 6470737399) LYMPH x10^3 (test 1.75 10*3/uL 1.09-3.23 code = 731-0) MONO x10^3 (test 0.48 10*3/uL 0.36-1.02 code = 742-7) EOS x10^3 (test 0.20 10*3/uL 0.06-0.53 code = 711-2) BASO x10^3 (test 0.04 10*3/uL 0.01-0.09 code = 704-7) [facility] [id number] 15:54:24No acute findings. HISTORY:Headache, acute, normal neuro exam Dizziness, non-specific TECHNIQUE: Noncontrast head CT was performed. COMPARISON:None FINDINGS: The ventricles and sulci are appropriate for patient's age. There is no midline shift. The basal cisterns are preserved. No largevascular territory infarction, intracranial hemorrhage or mass effect isseen. The extracranial tissues demonstrateno acute findings. [facility], [facility]iant Results Inft User - 01/24/2020 10:55 AM CDTHISTORY:Headache, acute,normal neuro exam Dizziness, non-specific TECHNIQUE: Noncontrast head CT was performed.COMPARISON:NoneFINDINGS:The ventricles and sulci are appropriate for patient's age.There is no midline shift. The basal cisterns are preserved. No largevascular territory infarction, intracranial hemorrhage or mass effect isseen.The extracranial tissues demonstrate no acute findings.IMPRESSIONNo acute findings.[facility] W [id number] 22:01:58Impression: Sigmoid diverticulosis with no evidence of diverticulitis. A 2.7 cm hypodensity in hepatic dome is likely a hemangioma butincompletely characterized on the current study. Recommend triple phase CTfor confirmation. Enlarged prostate. Mild gynecomastia. Exam: CT ABDOMEN PELVIS W CONTRAST Clinical History: Abd pain, diverticulitis suspected Comparison: None Findings: The visualized lungs show minimal basilar atelectasis. There is no evidenceof pleural or pericardial effusion. Mild gynecomastia. A indeterminate hypodensity in the hepatic dome measures 2.7 cm (2:16).Minimal peripheral enhancement suggest that this could be a hemangioma. Noother focal lesions are seen in the liver. The gallbladder, spleen,pancreas, and the adrenals appear normal. No evidence of hydronephrosis, nephrolithiasis, or focal enhancing lesionsin the kidneys. A hypodensity in the left kidney measuring 1.5 cm and withfluid attenuation (2:66) is consistent with a simple cyst. There is no evidence of free fluid,air, or lymphadenopathy seen in theabdomen and pelvis. No evidence of dilated bowel loops. Sigmoid di verticulosis with no evidenceof diverticulitis. Normal appendix is seen in the right lower quadrant.The urinary bladder appears normal. The prostate is enlarged and measures5.7 cm in transverse dimension. Degenerative changes are seen in the spine with no evidence of focallesions. [facility], [facility] Inft User - 11/13/2019 5:03 PM CDTExam: CT ABDOMEN PELVIS W CONTRASTClinical History: Abd pain, diverticulitis suspected Comparison: NoneFindings: The visualized lungs show minimal basilar atelectasis. There is no evidenceof pleural or pericardial effusion. Mild gynecomastia.A indeterminate hypodensity in the hepatic dome measures 2.7 cm (2:16).Minimal peripheral enhancement suggest that this could be a hemangioma. Noother focal lesions are seen in the liver. The gallbladder, spleen,pancreas, and the adrenals appear normal.No evidence of hydronephrosis, nephrolithiasis, or focal enhancing lesionsin the kidneys. A hypodensity in the left kidney measuring 1.5 cm and withfluid attenuation (2:66) is consistent with a simple cyst.There is no evidence of free fluid, air, or lymphadenopathy seen in theabdomen and pelvis.No evidence of dilated bowel loops. Sigmoid diverticulosis with no evidenceof diverticulitis. Normal appendix is seen in the right lower quadrant.The urinary bladder appears normal. The prostate is enlarged and measures5.7 cm in transverse dimension.Degenerative changes are seen in the spine with no evidence of focallesions.IMPRESSIONImpression: Sigmoid diverticulosis with no evidence of diverticulitis.A 2.7 cm hypodensity in hepatic dome is likely a hemangioma butincompletely characterized on the current study. Recommend triple phase CTfor confirmation.Enlarged prostate. Mild gynecomastia.[facility]. METABOLIC PANEL ([id number])2019-11-13 21:30:00 Test Item Value Reference Range Interpretation Comments NA (test code = 136 mmol/L 135-145 1484968899) K (test code = 3.9 mmol/L 3.5-5 5069657000) CL (test code = 101 mmol/L 98-108 8582617458) CO2 TOTAL (test code = 25 mmol/L 23-31 3209408253) AGAP (test code = 2-16 0824142976) BUN (test code = 13 mg/dL 7-23 0097791765) GLUCOSE (test code = 101 mg/dL 70-110 4459017798) CREATININE (test code = 0.91 mg/dL 0.6-1.25 9815217328) TOTAL BILI (test code = 0.5 mg/dL 0.1-1.5 4245286016) CALCIUM (test code = 9.3 mg/dL 8.6-10.6 9868212914) T PROTEIN (test code = 8.6 g/dL 6.3-8.2 H 0345584763) ALBUMIN (test code = 4.4 g/dL 3.5-5 2596168998) ALK PHOS (test code = 82 U/L 34-122 2680354912) ALTv (test code = 25 U/L 5-50 1742-6) AST(SGOT) (test code = 23 U/L 13-40 7228057250) eGFR Calculation mL/min/1.73m2 (Non-) (test code = 9266374178) eGFR Calculation mL/min/1.73m2 () (test code = 6864389586) HEATHER (test code = HEATHER) Association of Glomerular Filtration Rate (GFR) and Staging of Kidney Disease* + --+ --+ ------+| GFR (mL/min/1.73 m2) ?| With Kidney Damage ?| ?Without Kidney Damage+ --------+ --------+ +| ?>90 ?| ?Stage one ?| ? Normal ?+ ---+ ---+ -------+| ?60-89 ?| ?Stage two ?| ? Decreased GFR ? + --+ --+ ------+| ?30-59 ?| ?Stage three ?| ? Stage three ? + --+ --+ ------+| ?15-29 ?| ?Stage four ? | ? Stage four ?+ ---+ ---+ -------+| ?<15 (or dialysis) ? ?| ?Stage five ? | ? Stage five ?+ ---+ ---+ -------+ *Each stage assumes the associated GFR level has been in effect for at least three months. ?Stages 1 to 5, with or without kidney disease, indicate chronic kidney disease. Notes: Determination of stages one and two (with eGFR >59mL/min/1.73 m2) requires estimation of kidney damage for at least three months as defined by structural or functional abnormalities of the kidney, manifested by either:Pathological abnormalities or Markers of kidney damage (including abnormalities in the composition of the blood or urine or abnormalities in imaging tests). Lab Interpretation Abnormal (test code = 15130-6) [facility]30:00 Test Item Value Reference Range Interpretation Comments LIPASE (test code = 0835263827) 68 U/L 0-220 Lab Interpretation (test code = Normal 75291-7) [facility]2020-03-23 21:28:00 Test Item Value Reference Range Interpretation Comments APPEARANCE (test code = Clear Clear 9037472530) COLOR (test code = Straw Yellow A 3844447347) PH (test code = 4.8-8.0 3967128968) SP GRAVITY (test code = 1.003-1.030 6226871062) GLU U QUAL (test code = Normal Normal 5048144543) BLOOD (test code = Negative Negative 3355348973) KETONES (test code = 5 mg/dL Negative A 8469555015) PROTEIN (test code = Negative Negative 2887-8) UROBILIN (test code = Normal Normal 6072976346) BILIRUBIN (test code = Negative Negative 1887850441) NITRITE (test code = Negative Negative 7408996261) [place] (test code = Negative Negative 4401518594) RBC/HPF (test code = See_Comment [Autom ated message] 0329598172) The system [employer] generated this result transmitted ref erence range: 0 - 3 HP F. The reference range was not used to int erpret this result as normal/abnormal . WBC/HPF (test code = See_Comment [Autom ated message] 7694881024) The system [employer] generated this result transmitted ref erence range: 0 - 5 HP F. The reference range was not used to int erpret this result as normal/abnormal . BACTERIA (test code = Negative Negative 0622098969) SQ EPITH (test code = HPF 5874981579) Lab Interpretation (test Abnormal code = 84145-8) [facility] WITH [id number] 21:19:00 Test Item Value Reference Range Interpretation Comments WBC (test code = See_Comment [Automated message] 6690-2) The system [employer] generated this result transmitted ref erence range: 4.20 - 1 0.70 10*3/?L. The re ference range was not u sed to interpret this result as normal/abnor mal. RBC (test code = See_Comment [Automated message] 789-8) The system [employer] generated this result transmitted ref erence range: 4.26 - 5 .52 10*6/?L. The re ference range was not u sed to interpret this result as normal/abnor mal. HGB (test code = 14.0 g/dL 12.2-16.4 718-7) HCT (test code = 41.0 % 38.4-49.3 4544-3) MCV (test code = 94.0 fL 81.7-95.6 787-2) MCH (test code = 32.1 pg 26.1-32.7 785-6) MCHC (test code = 34.1 g/dL 31.2-35 786-4) RDW-SD (test code 42.3 fL 38.5-51.6 = 58663-5) RDW-CV (test code 12.1 % 12.1-15.4 = 788-0) PLT (test code = See_Comment [Automated message] 777-3) The system [employer] generated this result transmitted ref erence range: 150 - 32 8 10*3/?L. The re ference range was not u sed to interpret this result as normal/abnor mal. MPV (test code = 10.6 fL 9.8-13 39540-9) NRBC/100 WBC (test See_Comment [Automat ed message] code = 1574191642) The syste m which generated this result transmitted ref erence range: 0.0 - 10 .0 /100 WBCs. The refer ence range was not u sed to interpret this result as normal/abnor mal. NRBC x10^3 (test <0.01 See_Comment [Automated message] code = 1449353579) The syste m which generated this result transmitted ref erence range: 10*3/?L. The reference range was not used to interpr et this result as normal/abnormal . GRAN MAT (NEUT) % 66.8 % (test code = 770-8) IMM GRAN % (test 0.30 % code = 1711609520) LYMPH % (test code 23.0 % = 736-9) MONO % (test code 7.7 % = 5905-5) EOS % (test code = 1.7 % 713-8) BASO % (test code 0.5 % = 706-2) GRAN MAT 5.86 10*3/uL 1.99-6.95 x10^3(ANC) (test code = 1427518808) IMM GRAN x10^3 0.03 10*3/uL 0-0.06 (test code = 6120461676) LYMPH x10^3 (test 2.02 10*3/uL 1.09-3.23 code = 731-0) MONO x10^3 (test 0.68 10*3/uL 0.36-1.02 code = 742-7) EOS x10^3 (test 0.15 10*3/uL 0.06-0.53 code = 711-2) BASO x10^3 (test 0.04 10*3/uL 0.01-0.09 code = 704-7) [facility] CHEST 1 [id number] 20:28:16* * * * * * * * ORIGINAL REPORT * * * * * * * *CHEST PORTABLE ONE VIEW HISTORY:Cough TECHNIQUE: Frontal, portable projection of the chest is obtained. COMPARISON: 12/01/2015 FINDINGS: The lungs are clear. The heart size and mediastinal silhouetteare normal. No pleural effusion or pneumothorax is seen. CONCLUSIONS: No acute cardiopulmonary disease. [facility], [facility] Inft User - 04/21/2019 3:30 PM CDT* * * * * * * * ORIGINAL REPORT * * * * * * * *CHEST PORTABLE ONE VIEWHISTORY:CoughTECHNIQUE: Frontal, portable projection of the chest is obtained.COMPARISON: 12/01/2015FINDINGS: The lungs are clear.The heart size and mediastinal silhouetteare normal. No pleural effusion or pneumothorax is seen.CONCLUSIONS: No acute cardiopulmonary disease.[facility]
[2022-01-27] MEDS ORDERED: ONDANSETRON 4 MG/2 ML VIAL ONE (09:01)
[2022-01-27] MEDS ORDERED: DICYCLOMINE HCL 10 MG CAP ONE (09:01)
[2022-01-27] MEDS ORDERED: NA CHLORIDE 0.9% 1,000 ML ONE (09:01)
[2022-01-27 09:21] LABS: Absolute Lymphocytes (CBC) 1.5 K/uL (0.7-4.9); Hematocrit 41.5 % (39.6-49.0); Lymphocytes % 20.2 % (15.3-44.8); MPV 9.3 fL (7.6-11.3); RBC Red Blood Cell Count 4.41 M/uL (4.33-5.43)
[2022-01-27 09:51] LABS: Albumin 3.1 g/dL (3.4-5.0); Bilirubin Total 0.5 mg/dL (0.2-1.0); Protein, Total 7.6 g/dL (6.4-8.2)
[2022-01-27 09:53] LABS: Potassium 3.9 mmol/L (3.5-5.1)
[2022-01-27 10:54] LABS: Urine Blood Negative (Negative); Urine Glucose Negative (Negative); Urine Protein Negative (Negative); Urine pH 5.5 (5.0-7.0)
--- NOTE | 2022-01-27 11:37 | RAD REPORT ---
EXAM DESCRIPTION: CT - Abdomen Pelvis W Contrast - 01/27/2022 11:14 am CLINICAL HISTORY: LLQ abdominal pain COMPARISON: No comparisons TECHNIQUE: Biphasic, helical CT imaging of the abdomen and pelvis was performed following 100 ml non -ionic IV contrast. Oral contrast was given. All CT scans are performed using dose optimization technique as appropriate and may include automated exposure control or mA/KV adjustment according to patient size. FINDINGS: No suspicious findings in the lung bases. Liver has a borderline to mild diffuse fatty infiltration pattern. No portal vein abnormality seen. I n the posterior subcapsular dome right lobe a 3.1 centimeter area of decreased attenuation noted on a rterial phase imaging. This persists on venous phase imaging. There is some faint enhancement seen al mayank the periphery. This is probably but not definitively a hemangioma. This may be an atypical presen tation. No other focal liver lesions seen. CT characteristics are nonspecific. Spleen and pancreas show no suspicious findings. Gallbladder and biliary tree are also without suspic ious finding. Symmetric renal function is seen with no hydronephrosis or suspicious renal mass. No pyelonephritis o r acute parenchymal process. Small 15 mm cyst is present anterior mid left kidney. Partially filled u rinary bladder shows no suspicious finding. No adrenal abnormalities. Prostate gland and seminal vesi cles within normal limits. No stomach or small bowel abnormality. No appendicitis findings. Colon is mostly decompressed. Minima l stool remains in the rectum. Remainder of the colon is mostly decompressed. No colon wall thickenin g or edema. No free air, free fluid or inflammatory stranding. No hernia, mass or bulky lymphadenop athy. No suspicious bony findings. IMPRESSION: Contrast enhanced CT abdomen and pelvis showing no acute or emergent finding. Colon is mostly decompressed with only a small amount of stool remaining in the rectum. No acute colo n wall abnormality or mass seen. Approximately 3.1 centimeter low-density mass in the subcapsular dome right lobe liver. Imaging tin cteristics are nonspecific. This may be atypical hemangioma presentation. Malignant or aggressive les ion felt to be unlikely. Follow-up outpatient liver ultrasound may be helpful for further characterization and surveillance. N o prior imaging available to establish long-term stability.
[2022-01-27 12:10] LABS: Urine Bacteria <20 /HPF (NONE SEEN); Urine RBC <5 /HPF (NONE SEEN)
--- NOTE | 2022-01-27 12:21 | ER ---
Nurse's Notes [facility] Name: Clifton Garcia Age: 57 yrs Sex: Male : 1965 Arrival Date: 01/27/2022 Time: 08:23 Bed 20 Private MD: Diagnosis: Lower abdominal pain, unspecified Presentation: 01/27 08:28 Chief complaint: Patient states: he has been evaluated at another facility for left ap3 lower abdominal pain, and was informed he had a large collection of stool. Patient was then given "some liquid medicine to help flush me out", which he said worked and he was able to have a BM. Patient states the BM relieved him of his symptoms, however he reports that he had some chicken yesterday and needed to take "some more of that liquid medicine" to have a BM. Patient states he is here to be evaluated to "make sure that everything is okay", as he reports having continued mild discomfort in his left lower quadrant. Coronavirus screen: At this time, the client does not indicate any symptoms associated with coronavirus-19. Ebola Screen: No symptoms or risks identified at this time. Initial Sepsis Screen: Does the patient meet any 2 criteria? No. Patient's initial sepsis screen is negative. Does the patient have a suspected source of infection? No. Patient's initial sepsis screen is negative. Risk Assessment: Do you want to hurt yourself or someone else? Patient reports no desire to harm self or others. Onset of symptoms was January 21, 2022. 08:28 Method Of Arrival: Ambulatory ap3 08:28 Acuity: JOAN 3 ap3 Triage Assessment: 08:33 General: Appears in no apparent distress. Behavior is calm, cooperative. Pain: ap3 Complains of pain in left lower quadrant. Neuro: Level of Consciousness is awake, alert, obeys commands, confused, Oriented to person, place, time, situation, Appropriate for age Gait is steady, Speech is normal. Cardiovascular: Patient's skin is warm and dry. Respiratory: Airway is patent Respiratory effort is even, unlabored. GI: Reports lower abdominal pain, constipation. Historical: - Allergies: 08:31 No Known Allergies; ap3 - Home Meds: 08:31 Metoprolol Tartrate Oral [Active]; Omeprazole Oral [Active]; ap3 - PMHx: 08:31 Hypertensive disorder; ap3 - PSHx: 08:31 Tonsillectomy; ap3 - Immunization history:: Client reports receiving the 2nd dose of the Covid vaccine. - Social history:: Smoking status: Patient denies any tobacco usage or history of. Screenin:33 Abuse screen: Denies threats or abuse. Nutritional screening: No deficits noted. ap3 Tuberculosis screening: No symptoms or risk factors identified. Fall Risk None identified. Assessment: 09:10 General: Appears in no apparent distress. Behavior is calm, cooperative. Pain: ww Complains of pain in abdomen. Neuro: Level of Consciousness is awake, alert, obeys commands, Oriented to person, place, time, situation, Moves all extremities. Speech is normal. Cardiovascular: Capillary refill < 3 seconds Patient's skin is warm and dry. Respiratory: Airway is patent Respiratory effort is even, unlabored, Respiratory pattern is regular, symmetrical. GI: Abdomen is non-distended, Abdomen is tender to palpation. Derm: No signs and/or symptoms reported regarding the dermatologic system. Skin is healthy with good turgor. 10:34 Reassessment: Patient appears in no apparent distress at this time. No changes from previously documented assessment. Patient and/or family updated on plan of care and expected duration. Pain level reassessed. Patient is alert, oriented x 3, equal unlabored respirations, skin warm/dry/pink. 11:20 Reassessment: Patient appears in no apparent distress at this time. No changes from previously documented assessment. Patient and/or family updated on plan of care and expected duration. Pain level reassessed. Patient is alert, oriented x 3, equal unlabored respirations, skin warm/dry/pink. 12:24 Reassessment: Patient appears in no apparent distress at this time. No changes from previously documented assessment. Patient and/or family updated on plan of care and expected duration. Pain level reassessed. Patient is alert, oriented x 3, equal unlabored respirations, skin warm/dry/pink. Vital Signs: 08:28 BP 128 / 86; Pulse 92; Resp 17; Temp 98.2; Pulse Ox 99% ; Weight 106.14 kg; Height 6 ap3 ft. (182.88 cm); Pain 6/10; 12:41 BP 122 / 74; Pulse 80; Resp 16; Temp 98.0; Pulse Ox 100% ; Pain 0/10; jh6 08:28 Body Mass Index 31.74 (106.14 kg, 182.88 cm) ap3 ED Course: 08:23 Patient arrived in ED. as 08:31 David Sewell PA is PHCP. cp 08:31 Abhinav Kirkland MD is Attending Physician. cp 08:31 Triage completed. ap3 08:33 Arm band placed on right wrist. ap3 09:00 Kailee Terrell, RN is Primary Nurse. ww 09:13 Initial lab(s) drawn, by sd, sent to lab. Inserted saline lock: 20 gauge in right 5 wrist, using aseptic technique. Blood collected. 09:14 Patient has correct armband on for positive identification. Bed in low position. Call 5 light in reach. Pulse ox on. NIBP on. 09:14 CBC with Diff Sent. 5 09:14 CMP Sent. 5 09:14 Lipase Sent. 5 10:55 Urine Microscopic Only Sent. 5 11:15 CT Abd/Pelvis - PO and IV Contrast In Process Unspecified. EDRI 12:20 Denton Simons MD is Referral Physician. cp 12:25 No provider procedures requiring assistance completed. IV discontinued, intact, ww bleeding controlled, No redness/swelling at site. Pressure dressing applied. 12:42 IV discontinued, intact, bleeding controlled, No redness/swelling at site. Pressure [facility] dressing applied. Administered Medications: 09:11 Drug: Dicyclomine 20 mg Route: PO; ww 09:11 Drug: NS 0.9% 500 ml Route: IV; Rate: 500 ml/hr; Site: right wrist; ww 09:12 Drug: Zofran (Ondansetron) 4 mg Route: IVP; Site: right wrist; ww 09:55 Drug: NS 0.9% 500 ml Route: IV; Rate: 125 ml/hr; Site: right wrist; ww Outcome: 12:21 Discharge ordered by . cp 12:42 Discharged to home amb[address]. [facility] 12:42 Condition: good 12:42 Discharge instructions given to patient, Instructed on discharge instructions, follow up and referral plans. Demonstrated understanding of instructions, follow-up care, medications, Prescriptions given X 2. 12:[address] [facility] Signatures: Dispatcher [employer] EDRI Danni Ramos as David Sewell PA PA cp Martinez, Maria [facility] Daksha Collazo, RN RN ap3 Lali Sainz, RN RN jh6 Kailee Terrell, RN RN ww
--- NOTE | 2022-01-27 12:21 | EDPHYS ---
Physician Documentation [facility] Name: Clifton Garcia Age: 57 yrs Sex: Male : 1965 Arrival Date: 01/27/2022 Time: 08:23 Bed 20 Private MD: ED Physician Abhinav Kirkland HPI: 01/27 09:00 This 57 yrs old Male presents to ER via Ambulatory with complaints of cp Abdominal Pain. 09:00 The patient presents with abdominal pain in the left lower quadrant. cp 09:00 Onset: The symptoms/episode began/occurred 6 day(s) ago. cp 09:00 The symptoms do not radiate. Associated signs and symptoms: Pertinent positives: cp constipation, Pertinent negatives: blood in stools, diarrhea, dysuria, fever, testicular pain, vomiting. The symptoms are described as waxing/waning. Patient reports he was seen recently for similar symptoms and diagnosed with constipation. Patient was given laxative which has helped, but continues to have pain to LLQ abdomen. Historical: - Allergies: 08:31 No Known Allergies; ap3 - Home Meds: 08:31 Metoprolol Tartrate Oral [Active]; Omeprazole Oral [Active]; ap3 - PMHx: 08:31 Hypertensive disorder; ap3 - PSHx: 08:31 Tonsillectomy; ap3 - Immunization history:: Client reports receiving the 2nd dose of the Covid vaccine. - Social history:: Smoking status: Patient denies any tobacco usage or history of. ROS: 09:05 Abdomen/GI: Positive for constipation, abdominal distension, of the left lower cp quadrant, Negative for vomiting, diarrhea, anorexia, black/tarry stool, rectal bleeding. 09:05 Eyes: Negative for injury, pain, redness, and discharge. cp 09:05 Constitutional: Negative for body aches, chills, fever, poor PO intake. 09:05 ENT: Negative for drainage from ear(s), ear pain, sore throat, difficulty swallowing, difficulty handling secretions. 09:05 Cardiovascular: Negative for chest pain, edema, palpitations. 09:05 Respiratory: Negative for cough, shortness of breath, wheezing. 09:05 Back: Negative for pain at rest, pain with movement, radiated pain. 09:05 All other systems are negative. cp Exam: 09:10 Constitutional: The patient appears in no acute distress, alert, awake, comfortable, cp non-diaphoretic, non-toxic, well developed, well nourished. 09:10 Head/Face: Normocephalic, atraumatic. cp 09:10 Eyes: Periorbital structures: appear normal, Conjunctiva: normal, no exudate, no injection, Sclera: no appreciated abnormality, Lids and lashes: appear normal, bilaterally. 09:10 ENT: External ear(s): are unremarkable, Nose: is normal, Mouth: Lips: moist, Oral mucosa: moist, Posterior pharynx: Airway: no evidence of obstruction, patent. 09:10 Chest/axilla: Inspection: normal. 09:10 Cardiovascular: Rate: normal, Rhythm: regular. 09:10 Respiratory: the patient does not display signs of respiratory distress, Respirations: normal, no use of accessory muscles, no retractions, labored breathing, is not present, Breath sounds: are clear throughout, no decreased breath sounds, no stridor, no wheezing. 09:10 Abdomen/GI: Inspection: abdomen appears normal, Bowel sounds: active, all quadrants, Palpation: soft, in all quadrants, mild abdominal tenderness, in the left lower quadrant, rebound tenderness, is not appreciated, voluntary guarding, is not appreciated, involuntary guarding, is not appreciated. 09:10 Back: pain, is absent, ROM is normal. Vital Signs: 08:28 BP 128 / 86; Pulse 92; Resp 17; Temp 98.2; Pulse Ox 99% ; Weight 106.14 kg; Height 6 ap3 ft. (182.88 cm); Pain 6/10; 12:41 BP 122 / 74; Pulse 80; Resp 16; Temp 98.0; Pulse Ox 100% ; Pain 0/10; jh6 08:28 Body Mass Index 31.74 (106.14 kg, 182.88 cm) ap3 MDM: 08:39 Patient medically screened. cp 09:00 Differential diagnosis: appendicitis, bowel obstruction, diverticulitis, non-specific cp abd pain, Pyelonephritis, Ureterolithiasis, urinary tract infection. 12:20 Data reviewed: vital signs, nurses notes, lab test result(s), radiologic studies, CT cp scan. 12:20 Counseling: I had a detailed discussion with the patient and/or guardian regarding: the cp historical points, exam findings, and any diagnostic results supporting the discharge/admit diagnosis, lab results, radiology results, the need for outpatient follow up, a developmental services worker. Response to treatment: the patient's symptoms have mildly improved after treatment, and as a result, I will discharge patient. Special discussion: Based on the patient's Hx, exam, and Dx evaluation, there is no indication for emergent surgery or inpatient Tx. It is understood by the patient/guardian that if the Sx's persist or worsen they need to return immediately for re-evaluation. 01/27 08:50 Order name: CBC with Diff; Complete Time: 11:05 cp 01/27 08:50 Order name: CMP; Complete Time: 11:05 cp 01/27 11:05 Interpretation: Normal except: CL 109; CA 8.3; ALB 3.1; GLOB 4.5; A/G 0.7. 01/27 08:50 Order name: Lipase; Complete Time: 11:05 cp 01/27 08:50 Order name: Urine Microscopic Only; Complete Time: 12:12 01/27 08:50 Order name: CT Abd/Pelvis - PO and IV Contrast; Complete Time: 11:45 cp 01/27 11:47 Interpretation: Report reviewed. 01/27 10:54 Order name: Urine Dipstick-Ancillary; Complete Time: 11:05 EDMS 01/27 08:50 Order name: IV Saline Lock; Complete Time: 09:14 01/27 08:50 Order name: Labs collected and sent; Complete Time: 09:14 cp Administered Medications: 09:11 Drug: Dicyclomine 20 mg Route: PO; ww 09:11 Drug: NS 0.9% 500 ml Route: IV; Rate: 500 ml/hr; Site: right wrist; ww 09:12 Drug: Zofran (Ondansetron) 4 mg Route: IVP; Site: right wrist; ww 09:55 Drug: NS 0.9% 500 ml Route: IV; Rate: 125 ml/hr; Site: right wrist; ww Disposition: 18:49 Co-signature as Attending Physician, Abhinav Kirkland MD. rn Disposition Summary: 01/27/22 12:21 Discharge Ordered Location: Home cp Problem: new cp Symptoms: have improved cp Condition: Stable cp Diagnosis - Lower abdominal pain, unspecified cp Followup: cp - With: Denton Simons MD - When: 2 - 3 days - Reason: Recheck today's complaints Discharge Instructions: - Discharge Summary Sheet cp - Abdominal Pain, Adult cp Forms: - Medication Reconciliation Form cp - Thank You Letter cp - Antibiotic Education cp - Prescription Opioid Use cp Prescriptions: - Miralax 17 gram Oral powder in packet - take 1 packet by ORAL route once daily; 20 packet; Refills: 0, Product cp Selection Permitted - dicyclomine 20 mg Oral Tablet - take 1 tablet by ORAL route 4 times per day; 20 tablet; Refills: 0, Product cp Selection Permitted Signatures: Dispatcher [employer] EDMS Abhinav Kirkland MD MD rn David Sewell PA PA cp Daksha Collazo RN RN ap3 Kailee Terrell RN RN ww Corrections: (The following items were deleted from the chart) 11:05 11:05 Normal except: CL 109. cp cp
[2022-01-27 12:51] VITALS: BP 122/74; TEMP 98; O2SAT 100
== END 2022-01-27 12:43 | disposition home or self-care (01) ==
LOC: ER 08:21
DX: R10.32 Left lower quadrant pain (principal); I10 Essential (primary) hypertension
CPT/HCPCS: 85025; 36415; 83690; 80053; 74177; Q9967; J7030; J2405; 81003; 81015; 96374; 99284

== ENCOUNTER 2023-06-26 22:42 | Emergency (ER) | payer BC ==
--- NOTE | 2023-06-27 00:04 | EDPHYS ---
Physician Documentation [facility] Name: Clifton Garcia Age: 58 yrs Sex: Male : 1965 Arrival Date: 06/26/2023 Time: 22:42 Bed External Waiting Private MD: ED Physician Jeremi Carr HPI: 06/26 23:44 This 58 yrs old Male presents to ER via Unassigned with complaints of sp4 Abdominal Pain, Nausea/Vomiting, ACID REFLUX. 06/27 00:02 When called out from the lobby it turned out patient left prior to being seen. sp4 - Family history:: not pertinent. MDM: 00:00 Patient medically screened. sp4 00:02 Data reviewed: nurses notes. sp4 Administered Medications: No medications were administered Disposition: 00:03 Chart complete. sp4 Disposition Summary: 06/27/23 00:03 Eloped Notes: Disposition: before being seen by provider sp4 Problem: new sp4 Symptoms: are unchanged sp4 Reason: other sp4 Condition: Undetermined sp4 Diagnosis - Abdominal pain, unspecified sp4 Followup: sp4 - With: Private Physician - When: As needed - Reason: Signatures: Jeremi Carr MD MD sp4
--- OUTSIDE RECORDS SUMMARY | 2023-06-27 00:16 | XMS REPORT | Continuity of Care Document ---
:1965 Author Organization [facility] t Address [address] [place] [address] [address] [place] [address] Care Team Providers Name Role Phone Shalom Rangel Primary Care Physician PETE RADER Attending Clinician Unavailable DORIS MITCHELL Attending Clinician Unavailable Doctor Unassigned, [facility] [place] Attending Clinician Unavailable KIMBERLYN SWEENEY Attending Clinician Unavailable Kimberlyn Sweeney MD Attending Clinician [phone] NAREN CONNOR Attending Clinician Unavailable Naren Connor MD Attending Clinician Doris Castillo Attending Clinician SHANEL GRANADOS Attending Clinician Unavailable Shanel Granados NP Attending Clinician STEVE GUAMAN Attending Clinician Unavailable Nurse, Joy Pob Immunization Attending Clinician Unavailable Steve Guaman DO Attending Clinician CARLOS ALBERTO SEGURA Attending Clinician Unavailable Lab, Adc Fam Pob I Attending Clinician Unavailable Patti Hernandez Attending Clinician PATTI GOODE Attending Clinician Unavailable Aaliyah Burleson MD Attending Clinician AALIYAH BURLESON Attending Clinician Unavailable Estrellita Keith MD Attending Clinician Pob, Adc Lab Main Attending Clinician Unavailable Serenity Vicente MD Attending Clinician SERENITY VICENTE Attending Clinician Unavailable ARJUN MARIN Attending Clinician Unavailable Arjun Corbett Attending Clinician Unknown, Attending Attending Clinician Unavailable ESTRELLITA KEITH Attending Clinician Unavailable AYAH STEVENS Attending Clinician Unavailable Ayah Stein Attending Clinician Javier Galeano DO Attending Clinician KIMBERLYN SWEENEY Admitting Clinician Unavailable SHANEL GRANADOS Admitting Clinician Unavailable ARJUN MARIN Admitting Clinician Unavailable ESTRELLITA KEITH Admitting Clinician Unavailable AYAH STEVENS Admitting Clinician Unavailable Payers Payer Name Policy Type Policy Number Effective Date Expiration Date S [facility] [id number] 2015 00:00:00 Problems Condition Condition Condition Status Onset Resolution Last Treating Co mments Source Name Details Category Date Date Treatment Clinician Date No known No known Disease Unive rs active active ity of problems problems [facility] Allergies, Adverse Reactions, Alerts Allergy Allergy Status Severity Reaction(s) Onset Inactive Treating Comm ents Source Name Type Date Date Clinician NO KNOWN Drug Active Univers ALLERGIE Class ity of S [facility] Social History Social Habit Start Date Stop Date Quantity Comments Source Sexual orientation Univer sity [facility] History of Social 2023-01-24 2023-01-24 Univers ity of function 00:00:00 00:00:00 [facility] Exposure to 2022-07-12 2022-07-22 Not sure University SARS-CoV-2 (event) 00:00:00 10:58:00 [facility] Tobacco use and 2020-09-19 2020-09-19 Smokeless Universit y of exposure 00:00:00 00:00:00 tobacco non-user [facility] Sex Ass[birth year] Universit y of 00:00:00 00:00:00 [facility] Smoking Status Start Date Stop Date Source Never smoked tobacco [facility] Unknown if ever smoked [facility] Medications Ordered Filled Start Stop Current Ordering Indication Dosage Frequency Signature Comments Components Source Medication Medication Date Date Medication? Clinician (SIG) Name Name maalox:diph 2022- No 15mL 15 mL, Uni vers enhydrAMINE 05-20 Oral, ity of :lidocaine 21:00: 21:04 ONCE, 1 [place] 2 % viscous 00 :00 dose, On Medi priti 1:1:[address] [facility] ([facility] 05/20/23 at [facility]) 1600, oral Routine suspension 15 mL iopamidol 2022- No [id number] 80mL 80 mL, U nivers (ISOVUE 05-20 Intravenou ity o f 370-500 mL) 20:56: 20:56 s, ONCE, 1 [place] injection 00 :00 dose, On Medica l [address] [facility] 05/20/23 at 1615, Routine azithromyci 2022- No [id number] 250mg Take 1 Univers n 250 mg 01-24-10 tablet by ity o f tablet 00:00: 04:59 mouth [place] 00 :00 SEE-INSTRU Medical CTIONS for Branch 5 days. Take 500 mg day 1, then 250 mg days 2 to 5. omeprazole 2021-08 Yes 40mg Take 40 mg U nivers 40 mg 1-30 by mouth ity of capsule 11:13: daily. [address] montelukast 2021-08 Yes 10mg Take 10 mg Univers 10 mg 1-30 by mouth ity of tablet 11:13: daily. [address] bisoprolol 2021-08 Yes 5mg Take 5 mg Un uriah 5 mg tablet 1-30 by mouth ity of 11:13: daily. [address] omeprazole 2021-08 Yes 40mg Take 40 mg U nivers 40 mg 1-30 by mouth ity of capsule 11:13: daily. [address] montelukast 2021-08 Yes 10mg Take 10 mg Univers 10 mg 1-30 by mouth ity of tablet 11:13: daily. [address] bisoprolol 2021-08 Yes 5mg Take 5 mg Un uriah 5 mg tablet 1-30 by mouth ity of 11:13: daily. [address] omeprazole 2021-08 Yes 40mg Take 40 mg U nivers 40 mg 1-30 by mouth ity of capsule 11:13: daily. [address] montelukast 2021-08 Yes 10mg Take 10 mg Univers 10 mg 1-30 by mouth ity of tablet 11:13: daily. [address] bisoprolol 2021-08 Yes 5mg Take 5 mg Un uriah 5 mg tablet 1-30 by mouth ity of 11:13: daily. [address] omeprazole 2021-08 Yes 40mg Take 40 mg U nivers 40 mg 1-30 by mouth ity of capsule 11:13: daily. [address] montelukast 2021-08 Yes 10mg Take 10 mg Univers 10 mg 1-30 by mouth ity of tablet 11:13: daily. [address] bisoprolol 2021-08 Yes 5mg Take 5 mg Un uriah 5 mg tablet 1-30 by mouth ity of 11:13: daily. [address] omeprazole 2021-08 Yes 40mg Take 40 mg U nivers 40 mg 1-30 by mouth ity of capsule 11:13: daily. [address] montelukast 2021-08 Yes 10mg Take 10 mg Univers 10 mg 1-30 by mouth ity of tablet 11:13: daily. [address] bisoprolol 2021-08 Yes 5mg Take 5 mg Un uriah 5 mg tablet 1-30 by mouth ity of 11:13: daily. [address] omeprazole 2021-08 Yes 40mg Take 40 mg U nivers 40 mg 1-30 by mouth ity of capsule 11:13: daily. [address] montelukast 2021-08 Yes 10mg Take 10 mg Univers 10 mg 1-30 by mouth ity of tablet 11:13: daily. [address] bisoprolol 2021-08 Yes 5mg Take 5 mg Un uriah 5 mg tablet 1-30 by mouth ity of 11:13: daily. [address] iopamidol 2021- No [id number] 50mL 50 mL, Univers (ISOVUE 01-21 Intravenou ity o f 370-500 mL) 22:00: 22:00 s, ONCE, 1 [place] injection 00 :00 dose, On Medica l 50 mL 01/21/22 Branch at 1700, Routine dicyclomine 2021- No 20mg 20 mg, Uni vers (BENTYL) 01-21 Intramuscu ity of injection 21:15: 20:34 lar, ONCE, [place] 20 mg 00 :00 1 dose, On Medical 01/21/22 Branch at 1615, Routine lactulose 2021- No [id number] 30mL Take 30 mL Univers 10 gram/15 01-21 by mouth 2 it y of mL oral 00:00: 04:59 (two) [place] solution 00 :00 times Medical daily for Branch 7 days. bisoprolol 2020-0 Yes 5mg Take 5 mg Un uriah 5 mg tablet 1-28 by mouth ity of 19:32: daily. [address] bisoprolol 2020-0 Yes 5mg Take 5 mg Un uriah 5 mg tablet 1-28 by mouth ity of 19:32: daily. [address] bisoprolol 2020-0 Yes 5mg Take 5 mg Un [place] 5 mg tablet 1-28 by mouth ity of 19:32: daily. [address] bisoprolol 2020-0 Yes 5mg Take 5 mg Un [place] 5 mg tablet 1-28 by mouth ity of 19:32: daily. [address] bisoprolol 2020-0 Yes 5mg Take 5 mg Un [place] 5 mg tablet 1-28 by mouth ity of 19:32: daily. [address] bisoprolol 2020-0 Yes 5mg Take 5 mg Un [place] 5 mg tablet 1-28 by mouth ity of 19:32: daily. [address] bisoprolol 2020-0 Yes 5mg Take 5 mg Un [place] 5 mg tablet 1-28 by mouth ity of 19:32: daily. [address] bisoprolol 2020-0 Yes 5mg Take 5 mg Un [place] 5 mg tablet 1-28 by mouth ity of 19:32: daily. [address] bisoprolol 0 Yes 5mg Take 5 mg Un [place] 5 mg tablet 1-28 by mouth ity of 19:32: daily. [address] omeprazole 0 Yes 40mg Take 40 mg U nivers 40 mg 1-28 by mouth ity of capsule 19:32: daily. [address] montelukast 0 Yes 10mg Take 10 mg Univers 10 mg 1-28 by mouth ity of tablet 19:32: daily. [address] omeprazole 0 Yes 40mg Take 40 mg U nivers 40 mg 1-28 by mouth ity of capsule 19:32: daily. [address] montelukast 0 Yes 10mg Take 10 mg Univers 10 mg 1-28 by mouth ity of tablet 19:32: daily. [address] omeprazole 0 Yes 40mg Take 40 mg U nivers 40 mg 1-28 by mouth ity of capsule 19:32: daily. [address] montelukast 0 Yes 10mg Take 10 mg Univers 10 mg 1-28 by mouth ity of tablet 19:32: daily. [address] omeprazole 0 Yes 40mg Take 40 mg U nivers 40 mg 1-28 by mouth ity of capsule 19:32: daily. [address] montelukast 0 Yes 10mg Take 10 mg Univers 10 mg 1-28 by mouth ity of tablet 19:32: daily. [address] omeprazole 0 Yes 40mg Take 40 mg U nivers 40 mg 1-28 by mouth ity of capsule 19:32: daily. [address] montelukast 0 Yes 10mg Take 10 mg Univers 10 mg 1-28 by mouth ity of tablet 19:32: daily. [address] omeprazole 2020-0 Yes 40mg Take 40 mg U nivers 40 mg 1-28 by mouth ity of capsule 19:32: daily. [address] montelukast 2020-0 Yes 10mg Take 10 mg Univers 10 mg 1-28 by mouth ity of tablet 19:32: daily. [address] omeprazole 2020-0 Yes 40mg Take 40 mg U nivers 40 mg 1-28 by mouth ity of capsule 19:32: daily. [address] montelukast Yes 10mg Take 10 mg Univers 10 mg 09-19 by mouth ity of tablet 19:32: daily. [address] omeprazole Yes 40mg Take 40 mg U nivers 40 mg 09-19 by mouth ity of capsule 19:32: daily. [address] montelukast Yes 10mg Take 10 mg Univers 10 mg 09-19 by mouth ity of tablet 19:32: daily. [address] omeprazole Yes 40mg Take 40 mg U nivers 40 mg 09-19 by mouth ity of capsule 19:32: daily. [address] montelukast Yes 10mg Take 10 mg Univers 10 mg 09-19 by mouth ity of tablet 19:32: daily. [address] loratadine 2020- No 10mg Take 10 mg Univers (CLARITIN) 09-19 by mouth ity of 10 mg 19:32: 00:00 daily. [place] tablet 05 :00 [facility] loratadine 2020- No 10mg Take 10 mg Univers (CLARITIN) 09-19 by mouth ity of 10 mg 19:32: 00:00 daily. [place] tablet 05 :00 [facility] lisinopril 2020- No 5mg Take 5 mg U nivers (PRINIVIL,Z 09-19 by mouth ity of ESTRIL) 5 19:32: 00:00 daily. [place] mg tablet 03 :00 [facility] lisinopril 2020- No 5mg Take 5 mg U nivers (PRINIVIL,Z 09-19 by mouth ity of ESTRIL) 5 19:32: 00:00 daily. [place] mg tablet 03 :00 [facility] Branch ibuprofen 2020- No 400mg Take 400 [...] 2020- No 500mg Take 500 Univers (TRIMOX) 1-28 01-28 mg by ity of 500 mg 19:31: 00:00 mouth 3 [place] capsule 47 :00 (three) Medical times Branch daily. amoxicillin 2020- No 500mg Take 500 Univers (TRIMOX) 1-28 01-28 mg by ity of 500 mg 19:31: 00:00 mouth 3 [place] capsule 47 :00 (three) Medical times Branch daily. bisoprolol 0 Yes 5mg Take 5 mg Un uriah 5 mg tablet -28 by mouth ity of 13:32: daily. [address] bisoprolol 0 Yes 5mg Take 5 mg Un uriah 5 mg tablet -28 by mouth ity of 13:32: daily. [address] bisoprolol 0 Yes 5mg Take 5 mg Un uriah 5 mg tablet -28 by mouth ity of 13:32: daily. [address] omeprazole 0 Yes 40mg Take 40 mg U nivers 40 mg 1-28 by mouth ity of capsule 13:32: daily. [address] montelukast 0 Yes 10mg Take 10 mg Univers 10 mg 1-28 by mouth ity of tablet 13:32: daily. [address] omeprazole 0 Yes 40mg Take 40 mg U nivers 40 mg 1-28 by mouth ity of capsule 13:32: daily. [address] montelukast 0 Yes 10mg Take 10 mg Univers 10 mg -28 by mouth ity of tablet 13:32: daily. [address] omeprazole 0 Yes 40mg Take 40 mg U nivers 40 mg 1-28 by mouth ity of capsule 13:32: daily. [address] montelukast 0 Yes 10mg Take 10 mg Univers 10 mg 1-28 by mouth ity of tablet 13:32: daily. [address] gadobenate 0 2020- No .2mL/kg 0.2 mL/kg, Univers dimeglumine 02-12- Intravenou i ty of (MULTIHANCE 16:30: 16:30 s, ONCE, 1 [place] -20 mL) 00 :00 dose, Tue Medical injection 02/13/20 at Bran ch 0.2 mL/kg 1130, Routine ketorolac 2019-0 2019- No 30mg 30 mg, Unive rs (TORADOL) 01-23 Slow IV ity of injection 17:45: 16:58 Push, [place] 30 mg 00 :00 ONCE, 1 Medical dose, Wed Branch 01/24/20 at 1245, AFSHIN
Fa culty member approving Restricted medication : ESTRELLITA KEITH metoclopram 2019-0 2020- No 10mg 10 mg, Uni vers jasmin HCl 01-23 Slow IV ity of (REGLAN) 16:45: 15:41 Push, [place] injection 00 :00 ONCE, 1 Medical 10 mg dose, Wed Branch 01/24/20 at 1145, AFSHIN ondansetron 2020-0 Yes [id number] 4mg Take 1 Univers 4 mg 6-03 tablet by ity of disintegrat 00:00: mouth [place] ing tablet 00 every 4 Medica l (four) Branch hours as needed for Nausea and Vomiting (N/V). meclizine 2020-0 Yes [id number] 25mg Take 1 Un uriah 25 mg 6-03 tablet by ity of tablet 00:00: mouth [place] 00 every 6 Medical (six) Branch hours. ondansetron 2020-0 Yes [id number] 4mg Take 1 Univers 4 mg 6-03 tablet by ity of disintegrat 00:00: mouth [place] ing tablet 00 every 4 Medica l (four) Branch hours as needed for Nausea and Vomiting (N/V). meclizine 2020-0 Yes [id number] 25mg Take 1 Un uriah 25 mg 6-03 tablet by ity of tablet 00:00: mouth [place] 00 every 6 Medical (six) Branch hours. ondansetron 2020-0 Yes [id number] 4mg Take 1 Univers 4 mg 6-03 tablet by ity of disintegrat 00:00: mouth [place] ing tablet 00 every 4 Medica l (four) Branch hours as needed for Nausea and Vomiting (N/V). meclizine 2020-0 Yes [id number] 25mg Take 1 Un uriah 25 mg 6-03 tablet by ity of tablet 00:00: mouth [place] 00 every 6 Medical (six) Branch hours. ondansetron 2020-0 Yes [id number] 4mg Take 1 Univers 4 mg 6-03 tablet by ity of disintegrat 00:00: mouth [place] ing tablet 00 every 4 Medica l (four) Branch hours as needed for Nausea and Vomiting (N/V). meclizine 2020-0 Yes [id number] 25mg Take 1 Un uriah 25 mg 6-03 tablet by ity of tablet 00:00: mouth [place] 00 every 6 Medical (six) Branch hours. ondansetron 2020-0 Yes [id number] 4mg Take 1 Univers 4 mg 6-03 tablet by ity of disintegrat 00:00: mouth [place] ing tablet 00 every 4 Medica l (four) Branch hours as needed for Nausea and Vomiting (N/V). meclizine 2020-0 Yes [id number] 25mg Take 1 Un uriah 25 mg 6-03 tablet by ity of tablet 00:00: mouth [place] 00 every 6 Medical (six) Branch hours. ondansetron 2020-0 Yes [id number] 4mg Take 1 Univers 4 mg 6-03 tablet by ity of disintegrat 00:00: mouth [place] ing tablet 00 every 4 Medica l (four) Branch hours as needed for Nausea and Vomiting (N/V). meclizine 2020-0 Yes [id number] 25mg Take 1 Un uriah 25 mg 6-03 tablet by ity of tablet 00:00: mouth [place] 00 every 6 Medical (six) Branch hours. ondansetron 2020-0 Yes [id number] 4mg Take 1 Univers 4 mg 6-03 tablet by ity of disintegrat 00:00: mouth [place] ing tablet 00 every 4 Medica l (four) Branch hours as needed for Nausea and Vomiting (N/V). meclizine 2020-0 Yes [id number] 25mg Take 1 Un uriah 25 mg 6-03 tablet by ity of tablet 00:00: mouth [place] 00 every 6 Medical (six) Branch hours. ondansetron 2020-0 Yes [id number] 4mg Take 1 Univers 4 mg 6-03 tablet by ity of disintegrat 00:00: mouth [place] ing tablet 00 every 4 Medica l (four) Branch hours as needed for Nausea and Vomiting (N/V). meclizine 2020-0 Yes [id number] 25mg Take 1 Un uriah 25 mg 6-03 tablet by ity of tablet 00:00: mouth [place] 00 every 6 Medical (six) Branch hours. ondansetron 2019-2020- No [id number] 4mg Take 1 Univers 4 mg -09-19 tablet by ity of disintegrat 00:00: 00:00 [place] tablet 00 :00 every 4 Medica l (four) Branch hours as needed for Nausea and Vomiting (N/V). meclizine 2019-2020- No [id number] 25mg Take 1 U nivers 25 mg -09-19 tablet by ity of tablet 00:00: 00:00 mouth [place] 00 :00 every 6 Medical (six) Branch hours. ondansetron 2019-2020- No [id number] 4mg Take 1 Univers 4 mg -09-19 tablet by ity of disintegrat 00:00: 00:00 [place] tablet 00 :00 every 4 Medica l (four) Branch hours as needed for Nausea and Vomiting (N/V). meclizine 2019-2020- No [id number] 25mg Take 1 U nivers 25 mg -09-19 tablet by ity of tablet 00:00: 00:00 mouth [place] 00 :00 every 6 Medical (six) Branch hours. ciprofloxac 2020-0 Yes [id number] 500mg Take 1 Univers in HCl 500 3-24 tablet by ity of mg tablet 00:00: mouth (two) Medical times Branch daily. ciprofloxac 2020-0 Yes [id number] 500mg Take 1 Univers in HCl 500 3-24 tablet by ity of mg tablet 00:00: mouth (two) Medical times Branch daily. ciprofloxac 2020-0 Yes [id number] 500mg Take 1 Univers in HCl 500 3-24 tablet by ity of mg tablet 00:00: mouth (two) Medical times Branch daily. ciprofloxac 2020-0 Yes [id number] 500mg Take 1 Univers in HCl 500 3-24 tablet by ity of mg tablet 00:00: mouth (two) Medical times Branch daily. ciprofloxac 2020-0 Yes [id number] 500mg Take 1 Univers in HCl 500 3-24 tablet by ity of mg tablet 00:00: mouth (two) Medical times Branch daily. ciprofloxac 2020-0 Yes [id number] 500mg Take 1 Univers in HCl 500 3-24 tablet by ity of mg tablet 00:00: mouth 2 [place] (two) Medical times Branch daily. ciprofloxac 2020-0 Yes [id number] 500mg Take 1 Univers in HCl 500 3-24 tablet by ity of mg tablet 00:00: mouth 2 [place] (two) Medical times Branch daily. ciprofloxac 2020-0 Yes [id number] 500mg Take 1 Univers in HCl 500 3-24 tablet by ity of mg tablet 00:00: mouth 2 [place] (two) Medical times Branch daily. ciprofloxac 2020-0 Yes [id number] 500mg Take 1 Univers in HCl 500 3-24 tablet by ity of mg tablet 00:00: mouth 2 [place] (two) Medical times Branch daily. ciprofloxac 2020-0 Yes [id number] 500mg Take 1 Univers in HCl 500 3-24 tablet by ity of mg tablet 00:00: mouth 2 [place] (two) Medical times Branch daily. ciprofloxac 2020-0 2020- No [id number] 500mg Take 1 Univers in HCl 500 3-24 -28 tablet by ity of mg tablet 00:00: 00:00 mouth 2 [place] 00 :[place] (two) Medical times Branch daily. ciprofloxac 2020-0 2020- No [id number] 500mg Take 1 Univers in HCl 500 3-24 -28 tablet by ity of mg tablet 00:00: 00:00 mouth 2 [place] 00 :00 (two) Medical times Branch daily. metroNIDAZO 2019-0 2019- No 500mg 500 mg, U nivers LE (FLAGYL) 11-12 Oral, ity of tablet 500 23:15: 22:18 ONCE, 1 [place] as mg 00 :00 dose, [facility] Medical 11/13/19 at Branch 1815, AFSHIN
Re ason for Anti-Infec tive: Documented Infection< br>Documen dorcas Infection Site: Abdominal< br>Duratio n of Therapy: Other (see Comments) ciprofloxac 2020-0 2020- No 500mg 500 mg, U nivers in HCl 11-12 Oral, ity of (CIPRO) 23:15: 22:18 ONCE, 1 [place] tablet 500 00 :00 dose, Mon Medi priti mg 11/13/19 at Branch 1815, AFSHIN
Re ason for Anti-Infec tive: Documented Infection< br>Documen dorcas Infection Site: Abdominal< br>Duratio n of Therapy: Other (see Comments) ketorolac 2019- No 30mg 30 mg, Unive rs (TORADOL) 11-12 Slow IV ity of injection 22:15: 21:10 Push, [place] 30 mg 00 :00 ONCE, 1 Medical dose, [facility] 11/13/19 at 1715, AFSHIN
Fa culty member approving Restricted medication : AYAH STEVENS iohexol 2019- No 104mL 104 mL, Unive rs (OMNIPAQUE 11-12 Intravenou it y of 350 22:00: 21:43 s, ONCE, 1 [place] BULK-100 00 :00 dose, [facility] Medica l mL) 11/13/19 at Branch injection 1700, 104 mL Routine NaCl 0.9% 2019- No 1000mL at 999 Uni vers (NS) bolus 11-12 mL/hr, ity of infusion 22:00: 22:19 1,000 mL, [place] as 1,000 mL 00 :00 IV Medical Infusion, Branch ONCE, 1 dose, [facility] 11/13/19 at 1700, STAT metroNIDAZO 2019- No [id number] 500mg Take 1 Univers LE 500 mg 11-12 tablet by ity of tablet 00:00: 04:59 mouth [place] 00 :00 every 8 Medical (eight) Branch hours for 8 days. meclizine 2020-0 Yes [id number] 25mg Take 1 U nivers 25 mg 1-03 tablet by ity of tablet 00:00: mouth 3 [place] 00 (three) Medical times Branch daily as needed for Dizziness. meclizine 2020-0 Yes [id number] 25mg Take 1 U nivers 25 mg 1-03 tablet by ity of tablet 00:00: mouth 3 [place] 00 (three) Medical times Branch daily as needed for Dizziness. meclizine 2020-0 Yes [id number] 25mg Take 1 U nivers 25 mg 1-03 tablet by ity of tablet 00:00: mouth 3 (three) Medical times Branch daily as needed for Dizziness. meclizine 2020-0 Yes [id number] 25mg Take 1 U nivers 25 mg 1-03 tablet by ity of tablet 00:00: mouth 3 (three) Medical times Branch daily as needed for Dizziness. meclizine 2020-0 Yes [id number] 25mg Take 1 U nivers 25 mg 1-03 tablet by ity of tablet 00:00: mouth 3 (three) Medical times Branch daily as needed for Dizziness. meclizine 2020-0 Yes [id number] 25mg Take 1 U nivers 25 mg 1-03 tablet by ity of tablet 00:00: mouth 3 (three) Medical times Branch daily as needed for Dizziness. meclizine 2020-0 Yes [id number] 25mg Take 1 U nivers 25 mg 1-03 tablet by ity of tablet 00:00: mouth 3 (three) Medical times Branch daily as needed for Dizziness. meclizine 2020-0 Yes [id number] 25mg Take 1 U nivers 25 mg 1-03 tablet by ity of tablet 00:00: mouth 3 (three) Medical times Branch daily as needed for Dizziness. meclizine 2020-0 Yes [id number] 25mg Take 1 U nivers 25 mg 1-03 tablet by ity of tablet 00:00: mouth 3 (three) Medical times Branch daily as needed for Dizziness. meclizine 2020-0 Yes [id number] 25mg Take 1 U nivers 25 mg 1-03 tablet by ity of tablet 00:00: mouth 3 (three) Medical times Branch daily as needed for Dizziness. meclizine 2020-0 202- No [id number] 25mg Take 1 Univers 25 mg 1-03 -28 tablet by ity of tablet 00:00: 00:00 mouth 3 [place] 00 :00 (three) Medical times Branch daily as needed for Dizziness. meclizine 2020-0 2021- No [id number] 25mg Take 1 Univers 25 mg 1-03 -28 tablet by ity of tablet 00:00: 00:00 mouth 3 [place] 00 :00 (three) Medical times Branch daily as needed for Dizziness. chlorphenir 2019-0 Yes [id number] 4mg Take 1 Univers amine 4 mg 8-30 tablet by ity of tablet 00:00: mouth [place] 00 every 6 Medical (six) Branch hours as needed for Allergies or Runny nose. benzonatate 2019-0 Yes [id number] 200mg Take 1 Univers 200 mg 8-30 capsule by ity of capsule 00:00: mouth 3 [place] 00 (three) Medical times Branch daily as needed for Cough. chlorphenir 2019-0 Yes [id number] 4mg Take 1 Univers amine 4 mg 8-30 tablet by ity of tablet 00:00: mouth [place] 00 every 6 Medical (six) Branch hours as needed for Allergies or Runny nose. benzonatate 2019-0 Yes [id number] 200mg Take 1 Univers 200 mg 8-30 capsule by ity of capsule 00:00: mouth 3 00 (three) Medical times Branch daily as needed for Cough. chlorphenir 2019-0 Yes [id number] 4mg Take 1 Univers amine 4 mg 8-30 tablet by ity of tablet 00:00: mouth [place] 00 every 6 Medical (six) Branch hours as needed for Allergies or Runny nose. benzonatate 2019-0 Yes [id number] 200mg Take 1 Univers 200 mg 8-30 capsule by ity of capsule 00:00: mouth 3 00 (three) Medical times Branch daily as needed for Cough. chlorphenir 2019-0 Yes [id number] 4mg Take 1 Univers amine 4 mg 8-30 tablet by ity of tablet 00:00: mouth [place] 00 every 6 Medical (six) Branch hours as needed for Allergies or Runny nose. benzonatate 2019-0 Yes [id number] 200mg Take 1 Univers 200 mg 8-30 capsule by ity of capsule 00:00: mouth 3 00 (three) Medical times Branch daily as needed for Cough. chlorphenir 2019-0 Yes [id number] 4mg Take 1 Univers amine 4 mg 8-30 tablet by ity of tablet 00:00: mouth [place] 00 every 6 Medical (six) Branch hours as needed for Allergies or Runny nose. benzonatate 2019-0 Yes [id number] 200mg Take 1 Univers 200 mg 8-30 capsule by ity of capsule 00:00: mouth 3 [place] 00 (three) Medical times Branch daily as needed for Cough. chlorphenir 2019-0 Yes [id number] 4mg Take 1 Univers amine 4 mg 8-30 tablet by ity of tablet 00:00: mouth [place] 00 every 6 Medical (six) Branch hours as needed for Allergies or Runny nose. benzonatate 2019-0 Yes [id number] 200mg Take 1 Univers 200 mg 8-30 capsule by ity of capsule 00:00: mouth 3 00 (three) Medical times Branch daily as needed for Cough. chlorphenir 2019-0 Yes [id number] 4mg Take 1 Univers amine 4 mg 8-30 tablet by ity of tablet 00:00: mouth [place] 00 every 6 Medical (six) Branch hours as needed for Allergies or Runny nose. benzonatate 2019-0 Yes [id number] 200mg Take 1 Univers 200 mg 8-30 capsule by ity of capsule 00:00: mouth 3 00 (three) Medical times Branch daily as needed for Cough. chlorphenir 2019-0 Yes [id number] 4mg Take 1 Univers amine 4 mg 8-30 tablet by ity of tablet 00:00: mouth [place] 00 every 6 Medical (six) Branch hours as needed for Allergies or Runny nose. benzonatate 2019-0 Yes [id number] 200mg Take 1 [facility] 200 mg 8-30 capsule by ity of capsule 00:00: mouth 3 (three) Medical times Branch daily as needed for Cough. chlorphenir 2019-0 Yes [id number] 4mg Take 1 [facility] amine 4 mg 8-30 tablet by ity of tablet 00:00: mouth [place] 00 every 6 Medical (six) Branch hours as needed for Allergies or Runny nose. benzonatate 2019-0 Yes [id number] 200mg Take 1 [facility] 200 mg 8-30 capsule by ity of capsule 00:00: mouth 3 (three) Medical times Branch daily as needed for Cough. chlorphenir 2019-0 Yes [id number] 4mg Take 1 [facility] amine 4 mg 8-30 tablet by ity of tablet 00:00: mouth [place] 00 every 6 Medical (six) Branch hours as needed for Allergies or Runny nose. benzonatate 2019-0 Yes [id number] 200mg Take 1 [facility] 200 mg 8-30 capsule by ity of capsule 00:00: mouth 3 (three) Medical times Branch daily as needed for Cough. chlorphenir 2019-0 Yes [id number] 4mg Take 1 [facility] amine 4 mg 8-30 tablet by ity of tablet 00:00: mouth [place] 00 every 6 Medical (six) Branch hours as needed for Allergies or Runny nose. benzonatate Yes [id number] 200mg Take 1 [facility] 200 mg 8-30 capsule by ity of capsule 00:00: mouth 3 [place] 00 (three) Medical times Branch daily as needed for Cough. chlorphenir 2020- No [id number] 4mg Take 1 [facility] amine 4 mg 8-30 -28 tablet by ity of tablet 00:00: 00:00 mouth [place] 00 :00 every 6 Medical (six) Branch hours as needed for Allergies or Runny nose. benzonatate 2020- No [id number] 200mg Take 1 [facility] 200 mg 8-30 01-28 capsule by ity of capsule 00:00: 00:00 mouth 3 [place] 00 :00 (three) Medical times Branch daily as needed for Cough. chlorphenir 2020- No [id number] 4mg Take 1 [facility] amine 4 mg 8-30 -28 tablet by ity of tablet 00:00: 00:00 mouth [place] 00 :00 every 6 Medical (six) Branch hours as needed for Allergies or Runny nose. benzonatate 2020- No [id number] 200mg Take 1 [facility] 200 mg 8-30 -28 capsule by ity of capsule 00:00: 00:00 mouth 3 [place] 00 :00 (three) Medical times Branch daily as needed for Cough. ibuprofen Yes 400mg Take 400 Uni vers (MOTRIN) 9-03 mg by ity of 400 mg 16:29: mouth [place] tablet 22 every 8 Medical (eight) Branch hours as needed. loratadine 2017-0 Yes 10mg Take 10 mg U nivers (CLARITIN) 9-03 by mouth ity o f 10 mg 16:29: daily. [place] tablet 22 Medical Branch amoxicillin 2017-0 Yes 500mg Take 500 U nivers (TRIMOX) 9-03 mg by ity of 500 mg 16:29: mouth 3 [place] capsule 22 (three) Medical times Branch daily. lisinopril 2018-0 Yes 5mg Take 5 mg Un uriah (PRINIVIL,Z 9-03 by mouth ity of ESTRIL) 5 16:29: daily. [place] mg tablet 22 Medical Branch ibuprofen 2017-0 Yes 400mg Take 400 Uni vers (MOTRIN) [...] needed for Pain (scale 4-6). sulfamethox 2018-0 2020- No 1{tbl} Take 1 U nivers azole-trime 9-03 -28 tablet by it y of thoprim 00:00: 00:00 mouth [place] 800-160 mg 00 :00 every 12 Medic al per tablet (twelve) Branc h hours. ibuprofen 2018-0 2020- No 800mg Take 1 Univ ers 800 mg 9-03 -28 tablet by ity of tablet 00:00: 00:00 mouth [place] 00 :00 every 8 Medical (eight) Branch hours as needed for Pain (scale 4-6). sulfamethox 2018-0 2021- No 1{tbl} Take 1 U nivers azole-trime 04-25 tablet by it y of thoprim 00:00: 00:00 mouth [place] 800-160 mg 00 :00 every 12 Medic al per tablet (twelve) Branc h hours. ibuprofen No 800mg Take 1 Univ ers 800 [...] 2020- No 1{bottl Use 1 Univers chlor-bicar 2-20 - e} Bottle in it y of b-squeez [...] 2020- No 1{bottl Use 1 Univers chlor-bicar 2-20 01-28 e} Bottle in it y of b-squeez [...] 2020- No 2{puff} Inhale 2 Univers (VENTOLIN) 4-10 01-28 Puffs ity of 90 00:00: 00:00 every 4 [place] mcg/actuati 00 :00 (four) Medica l on inhaler hours as Branc h needed for Wheezing or Shortness of Breath. albuterol 2020- No 2{puff} Inhale 2 Univers (VENTOLIN) 4-10 01-28 Puffs ity of 90 00:00: 00:00 every 4 [place] mcg/actuati 00 :00 (four) Medica l on inhaler hours as Branc h needed for Wheezing or Shortness of Breath. benzonatate 2019- No 200mg Take 1 Cap [facility] (TESSALON) 11-30 08-30 by mouth 3 it y of 200 mg 00:00: 00:00 (three) [place] capsule 00 :00 times Medical daily as Branch needed for Cough. Immunizations Ordered Filled Date Status Comments Source Immunization Name Immunization Name SARS-COV-2 COVID-19 2021-08-12 Completed Unive rsity of [facility]/J&J VACCINE 00:00:00 [facility] SARS-COV-2 COVID-19 2021-08-12 Completed Unive rsity of [facility]/J&J VACCINE 00:00:00 [facility] SARS-COV-2 COVID-19 2021-08-12 Completed Unive rsity of [facility]/J&J VACCINE 00:00:00 [facility] SARS-COV-2 COVID-19 2021-08-12 Completed Unive rsity of [facility]/J&J VACCINE 00:00:00 [facility] SARS-COV-2 COVID-19 2021-08-12 Completed Unive rsity of [facility]/J&J VACCINE 00:00:00 [facility] SARS-COV-2 COVID-19 2021-08-12 Completed Unive rsity of [facility]/J&J VACCINE 00:00:00 [facility] SARS-COV-2 COVID-19 2021-08-12 Completed Unive rsity of [facility]/J&J VACCINE 00:00:00 [facility] Influenza Virus 2020-05-23 Completed Universit y of Vaccine 00:00:00 [facility] Influenza Virus 2020-05-23 Completed Universit y of Vaccine 00:00:00 [facility] Influenza Virus 2020-05-23 Completed Universit y of Vaccine 00:00:00 [facility] Influenza Virus 2020-05-23 Completed Universit y of Vaccine 00:00:00 [facility] Influenza Virus 2020-05-23 Completed Universit y of Vaccine 00:00:00 [facility] Influenza Virus 2020-05-23 Completed Universit y of Vaccine 00:00:00 [facility] Influenza Virus 2020-05-23 Completed Universit y of Vaccine 00:00:00 [facility] Influenza Virus 2020-05-23 Completed Universit y of Vaccine 00:00:00 [facility] Influenza Virus 2020-05-23 Completed Universit y of Vaccine 00:00:00 [facility] Influenza Virus 2020-05-23 Completed Universit y of Vaccine 00:00:00 [facility] Influenza Virus 2020-05-23 Completed Universit y of Vaccine 00:00:00 [facility] Influenza Virus 2020-05-23 Completed Universit y of Vaccine 00:00:00 [place] [facility] Influenza Virus 2020-05-23 Completed Universit y of Vaccine 00:00:00 [place] [facility] Influenza Virus 2020-05-23 Completed Universit y of Vaccine 00:00:00 [facility] Branch Influenza Virus 2020-05-23 Completed Universit y of Vaccine 00:00:00 [facility] Branch Influenza Virus 2020-05-23 Completed Universit y of Vaccine 00:00:00 [place] [facility] Td 2018-04-25 Completed University of 00:00:00 [place] [facility] Td 2018-04-25 Completed University of 00:00:00 [place] [facility] Td 2018-04-25 Completed University of 00:00:00 [place] [facility] Td 2018-04-25 Completed University of 00:00:00 [place] [facility] Td 2018-04-25 Completed University of 00:00:00 [place] [facility] Td 2018-04-25 Completed University of 00:00:00 [place] [facility] Td 2018-04-25 Completed University of 00:00:00 [place] [facility] Td 2018-04-25 Completed University of 00:00:00 [place] [facility] Td 2018-04-25 Completed University of 00:00:00 [place] [facility] Td 2018-04-25 Completed University of 00:00:00 [place] [facility] Td 2018-04-25 Completed University of 00:00:00 [place] [facility] Td 2018-04-25 Completed University of 00:00:00 [place] [facility] Td 2018-04-25 Completed University of 00:00:00 [place] [facility] Td 2018-04-25 Completed University of 00:00:00 [place] [facility] Td 2018-04-25 Completed University of 00:00:00 [place] [facility] Td 2018-04-25 Completed University of 00:00:00 [place] [facility] Td 2018-04-25 Completed University of 00:00:00 [place] [facility] Td 2018-04-25 Completed University of 00:00:00 [place] [facility] Td 2018-04-25 Completed University of 00:00:00 [place] [facility] Td 2018-04-25 Completed University of 00:00:00 [place] [facility] Td 2018-04-25 Completed University of 00:00:00 [place] [facility] Td 2018-04-25 Completed University of 00:00:00 [place] [facility] Td 2018-04-25 Completed University of 00:00:00 [place] [facility] Td 2018-04-25 Completed University of 00:00:00 [place] [facility] TD, NOS 2018-04-25 Completed University of 00:00:00 [facility] TD, NOS 2018-04-25 Completed University of 00:00:00 [facility] Branch Td 2018-04-25 Completed University of 00:00:00 [facility] TD, NOS Unknown Completed [facility] Influenza Virus Unknown Completed Universit y of Vaccine [facility] SARS-COV-2 COVID-19 Unknown Completed Unive rsity of TEODORA/J&J VACCINE [facility] TD, NOS Unknown Completed [facility] Influenza Virus Unknown Completed Universit y of Vaccine [facility] SARS-COV-2 COVID-19 Unknown Completed Unive rsity of TEODORA/J&J VACCINE [facility] Vital Signs Vital Name Observation Time Observation Value Comments Source Systolic blood 2023-05-20 19:59:00 145 mm[Hg] Univer sity of pressure [facility] Diastolic blood 2023-05-20 19:59:00 89 mm[Hg] Unive rsity of [facility] Heart rate 2023-05-20 19:59:00 99 /min [facility] Body temperature 2023-05-20 19:59:00 37 Sana [facility] Respiratory rate 2023-05-20 19:59:00 17 /min [facility] Body height 2023-05-20 19:59:00 182.9 cm [facility] Body weight 2023-05-20 19:59:00 101.606 kg [facility] BMI 2023-05-20 19:59:00 30.38 kg/m2 [facility] Oxygen saturation in 2023-05-20 19:59:00 100 /min [facility] Arterial blood by [facility] [place] [facility] Pulse oximetry Branch Systolic blood 2023-01-25 03:52:00 144 mm[Hg] Univer sity of pressure [facility] Diastolic blood 2023-01-25 03:52:00 96 mm[Hg] Unive rsity of [facility] Heart rate 2023-01-25 03:52:00 97 /min [facility] Body temperature 2023-01-25 03:52:00 37.5 Sana [facility] [place] [facility] Respiratory rate 2023-01-25 03:52:00 18 /min [facility] Body height 2023-01-25 03:52:00 182.9 cm Universi ty of [place] [facility] Body weight 2023-01-25 03:52:00 102.513 kg Universi ty of [place] [facility] BMI 2023-01-25 03:52:00 30.65 kg/m2 Universi ty of [place] [facility] Oxygen saturation in 2023-01-25 03:52:00 100 /min [facility] of Arterial blood by [place] [facility] Pulse oximetry Branch Systolic blood 2022-07-22 17:14:00 131 mm[Hg] Univer sity of pressure [facility] [place] [facility] Diastolic blood 2022-07-22 17:14:00 78 mm[Hg] Unive rsity of pressure [facility] [place] [facility] Heart rate 2022-07-22 17:14:00 67 /min Universi ty of [place] [facility] Body height 2022-07-22 17:14:00 182.9 cm [facility]i ty of [place] [facility] Body weight 2022-07-22 17:14:00 103.42 kg [facility]i ty of [place] [facility] BMI 2022-07-22 17:14:00 30.92 kg/m2 [facility]i [facility] [place] [facility] Oxygen saturation in 2022-07-22 17:14:00 97 /min [facility] of Arterial blood by [place] [facility] Pulse oximetry Branch Systolic blood 2022-01-21 20:44:07 131 mm[Hg] Univer sity of pressure [facility] [place] [facility] Diastolic blood 2022-01-21 20:44:07 90 mm[Hg] Unive rsity of pressure [facility] [place] [facility] Heart rate 2022-01-21 20:44:07 68 /min Universi ty of [place] [facility] Respiratory rate 2022-01-21 20:44:07 14 /min Univ ersity of [place] [facility] Oxygen saturation in 2022-01-21 20:44:07 98 /min University of Arterial blood by [place] [facility] Pulse oximetry Branch Body temperature 2022-01-21 18:31:00 36.33 Sana Univ ersity of [place] [facility] Body height 2022-01-21 18:31:00 182.9 cm Universi ty of [place] [facility] Body weight 2022-01-21 18:31:00 107.049 kg [facility]i ty of [place] [facility] BMI 2022-01-21 18:31:00 32.01 kg/m2 [facility]i ty [facility] [place] [facility] Systolic blood 2020-09-19 19:34:00 123 mm[Hg] Univer sity of pressure [place] [facility] Diastolic blood 2020-09-19 19:34:00 84 mm[Hg] Unive rsity of pressure [facility] [place] [facility] Heart rate 2020-09-19 19:34:00 79 /min Universi ty of [place] [facility] Respiratory rate 2020-09-19 19:34:00 19 /min Univ ersity of [place] [facility] Body height 2020-09-19 19:34:00 182.9 cm Universi ty of [place] [facility] Body weight 2020-09-19 19:34:00 108.863 kg [facility]i ty of [place] [facility] BMI 2020-09-19 19:34:00 32.55 kg/m2 [facility]i ty of [place] [facility] Oxygen saturation in 2020-09-19 19:34:00 96 /min University of Arterial blood by [facility] [place] [facility] Pulse oximetry Branch Systolic blood 2020-09-18 22:00:00 126 mm[Hg] Univer sity of pressure [facility] [place] [facility] Diastolic blood 2020-09-18 22:00:00 80 mm[Hg] Unive rsity of pressure [facility] [place] [facility] Heart rate 2020-09-18 22:00:00 63 /min Universi ty of [place] [facility] Respiratory rate 2020-09-18 22:00:00 17 /min Univ ersity of [place] [facility] Oxygen saturation in 2020-09-18 22:00:00 98 /min University of Arterial blood by [facility] [place] [facility] Pulse oximetry Branch Body temperature 2020-09-18 21:00:00 36.56 Sana Univ ersity of [place] [facility] Body weight 2020-09-18 18:46:00 108.863 kg Universi ty of [place] [facility] BMI 2020-09-18 18:46:00 32.55 kg/m2 [facility] [place] [facility] Systolic blood 2020-01-24 17:00:00 117 mm[Hg] Univer sity of pressure [place] [facility] Diastolic blood 2020-01-24 17:00:00 85 mm[Hg] Unive rsity of pressure [facility] [place] [facility] Heart rate 2020-01-24 17:00:00 68 /min Universi ty of [place] [facility] Respiratory rate 2020-01-24 17:00:00 16 /min Univ ersity of [place] [facility] Oxygen saturation in 2020-01-24 17:00:00 96 /min University of Arterial blood by [facility] [place] [facility] Pulse oximetry Branch Body weight 2020-01-24 15:31:00 108.863 kg Universi ty of [place] [facility] BMI 2020-01-24 15:31:00 32.55 kg/m2 [facility] [place] [facility] Body temperature 2020-01-24 15:20:00 37.06 Sana Univ ersity of [place] [facility] Systolic blood 2019-11-13 22:00:00 131 mm[Hg] Univer sity of pressure [place] [facility] Diastolic blood 2019-11-13 22:00:00 83 mm[Hg] Unive rsity of pressure [facility] [place] [facility] Heart rate 2019-11-13 22:00:00 74 /min [facility]i ty [facility] [place] [facility] Respiratory rate 2019-11-13 22:00:00 20 /min Univ ersity of [place] [facility] Oxygen saturation in 2019-11-13 22:00:00 98 /min University of Arterial blood by [facility] [place] [facility] Pulse oximetry Branch Body temperature 2019-11-13 20:49:00 37.89 Sana Univ ersity of [place] [facility] Body weight 2019-11-13 20:49:00 108.863 kg [facility]i ty of [place] [facility] BMI 2019-11-13 20:49:00 32.55 kg/m2 [facility] [place] [facility] Systolic blood 2019-04-21 20:00:00 142 mm[Hg] Univer sity of pressure [place] [facility] Diastolic blood 2019-04-21 20:00:00 88 mm[Hg] Unive rsity of pressure [facility] [place] [facility] Heart rate 2019-04-21 20:00:00 86 /min [facility]i ty [facility] [place] [facility] Body temperature 2019-04-21 20:00:00 37.22 Sana Univ ersity of [place] [facility] Respiratory rate 2019-04-21 20:00:00 18 /min Univ ersity of [place] [facility] Body height 2019-04-21 20:00:00 182.9 cm [facility]i ty [facility] [place] [facility] Body weight 2019-04-21 20:00:00 106.142 kg [facility] ty [facility] [place] [facility] BMI 2019-04-21 20:00:00 31.74 kg/m2 [facility] [place] [facility] Oxygen saturation in 2019-04-21 20:00:00 97 /min University Arterial blood by [facility] [place] [facility] Pulse oximetry Branch Procedures Procedure Date / Time Performing Source Performed Clinician CT ABDOMEN PELVIS W CONTRAST 2023-05-20 Kimberlyn Sweeney [facility] 21:05:00 [place] [facility] ASSIGNMENT OF BENEFITS 2023-05-20 Doctor Ned, [facility] 20:27:24 [facility] [place] [facility] LIPASE 2023-05-20 [facility] 20:24:00 [facility] COMP. METABOLIC PANEL ([id number]) 2023-05-20 [facility]:24[facility]00 [facility] CBC WITH DIFF 2023-05-20 [facility] 20:24:00 [facility] CONSENT/REFUSAL FOR DIAGNOSIS 2023-05-20 Doctor Unachris, [facility] AND TREATMENT 19:46:13 [facility] [place] [facility] NOTICE OF PRIVACY PRACTICES 2023-01-25 Doctor Unasscamden, [facility] 03:48:24 [facility] [place] [facility] CONSENT/REFUSAL FOR DIAGNOSIS 2023-01-25 Doctor Unasscamden, [facility] AND TREATMENT 03:46:22 [facility] [facility] HB ECG ROUTINE & RHYTHM STRIP 2022-07-22 Doris Mitchell [facility] 17:19:25 Medical Branch CONSENT/REFUSAL FOR DIAGNOSIS 2022-07-22 Doctor Unachris, [facility] TREATMENT 17:00:34 [facility] CT ABDOMEN PELVIS W CONTRAST 2022-01-21 Shanel Granados [facility] 20:55:17 Medical Branch URINALYSIS 2022-01-21 Shanel Granados [facility] 20:24:00 Medical Branch LIPASE 2022-01-21 Shanel Granados [facility] 20:17:00 Medical Branch COMP. METABOLIC PANEL ([id number]) 2022-01-21 Shanel Granados [facility] 20:17:00 Medical Branch CBC WITH DIFF 2022-01-21 Shanel Granados [facility] 20:17:00 Medical Branch CONSENT/REFUSAL FOR DIAGNOSIS 2022-01-21 Doctor Unasscamden, [facility] TREATMENT 18:41:37 [facility] NOTICE OF PRIVACY PRACTICES 2022-01-21 Doctor Unassigned, [facility] 18:26:14 [facility] [place] [facility] SARS-COV-2 COVID-19 2021-08-12 Doctor Unassigned, [facility] VACCINE,0.5ML,IM 19:06:07 [facility] [place] [facility] (TEODORA/J&J) DISCLOSURE AND CONSENT, 2020-09-30 Doctor Unasscamden, [facility] MEDICAL AND SURGICAL 06:01:00 [place] [facility] PROCEDURES TROPONIN I 2020-09-18 Sagar [facility] 21:25:00 Medical Branch XR CHEST 1 VW 2020[facility]09[facility] 19:31[facility] TROPONIN I 2020-09-[facility] 19:05:[facility] Branch HEPATIC FUNCTION PANEL 2020-09-18 [facility] ([id number]) (ALB,T.PRO,BILI 19:05:00 Medical Branch T,BU/BC,ALT,AST,ALK PHOS) BASIC METABOLIC PANEL (NA, K, 2020-09-18 Estrellita Keith [facility] CL, CO2, GLUCOSE, BUN, 19:05:00 Medical ranch CREATININE, CA) CBC WITH DIFF 2020-09-18 Sagar [facility] 19:05:00 Medical Branch PROTHROMBIN TIME / INR 2020-09-18 [facility] 19:05:00 Medical Branch D-DIMER 2020-09-18 [facility] 19:05:[facility] Branch ACTIVATED PARTIAL THRMPLAS 2020-09-[address] [facility] 19:05:00 Medical Branch CONSENT/REFUSAL FOR DIAGNOSIS 2020-09-18 Doctor Unachris, [facility] AND TRE[facility]MENT 18:41:22 [facility] [place] [facility] GAMMA GLUTAMYLTRANSFERASE 2020-05-24 Serenity Vicente [facility] 20:15:00 Medical Branch FERRITIN SERUM 2020-05-24 Lana [facility] 20:15:00 Medical Branch IONIZED CALCIUM 2020-05-24 Vicente, [facility] 20:15:00 Medical Branch CERULOPLASMIN 2020-05-24 [facility] 20:15:00 [facility] Branch ALPHA 1 ANTITRYPSIN 2020-05-24 Vicente [facility] 20:15:00 Medical Branch HEPATIC FUNCTION PANEL 2020-05-24 Vicente, [facility] ([id number]) (ALB,T.PRO,BILI 20:15:00 Medical Branch T,BU/BC,ALT,AST,ALK PHOS) BASIC METABOLIC PANEL (NA, K, 2020-05-24 Vicente [facility] CL, CO2, GLUCOSE, BUN, 20:15:00 Medical ranch CREATININE, CA) ALPHA FETOPROTEIN 2020-05-24 [facility] 20:15:00 Medical [place] IRON PANEL 2020-05-24 [facility] 20:15:00 Medical Branch CBC WITH DIFF 2020-05-24 Vicente [facility] 20:15:00 [facility] PROTHROMBIN TIME / INR 2020-05-24 Vicente [facility] 20:15:00 Medical Branch ACTIVATED PARTIAL THRMPLAS 2020-05-24 Lana [facility] 20:15:00 [facility] Branch HEPATITIS B SURFACE ANTIBODY 2020-05-24 [facility] 20:15:[facility] Medical Branch HEPATITIS B SURFACE ANTIGEN 2020-05-24 [facility]ity [facility] 20:15:00 [facility] Branch HCV ANTIBODY 2020-05-24 Vicente, [facility] 20:15:00 Medical Branch HBC ANTIBODY (IGM & IGG) 2020-05-24 Vicente, [facility] 20:15:00 [facility] Branch HEPATITIS B CORE ANTIBODY IGM 2020-05-24 Vicente [facility] 20:15:00 Medical Branch HAV ANTIBODY (IGG AND IGM) 2020-05-24 Vicente [facility] 20:15:00 Medical Branch PHYSICIAN ORDERS 2020-05-24 Doctor Unassigned, [facility] 05:01:00 [facility] [place] [facility] MR ABDOMEN W WO CONTRAST 2020-02-13 Arjun Marin [facility] 17:07:21 Medical Branch ASSIGNMENT OF BENEFITS 2020-02-13 Doctor Unassigned, [facility] 15:38:[address] [facility] [address] HEAD WO CONTRAST 2020-01-24 Sagar Estrellita [facility] 15:51:03 [facility] Branch TROPONIN I 2020-01-24 Sagar [facility] xa 15:42:00 Medical Branch HEPATIC FUNCTION PANEL 2020-01-24 Sagar [facility] ([id number]) (ALB,T.PRO,BILI 15:42:00 Medical Branch T,BU/BC,ALT,AST,ALK PHOS) BASIC METABOLIC PANEL (NA, K, 2020-01-24 Estrellita Keith [facility] CL, CO2, GLUCOSE, BUN, 15:42:00 Medical ranch CREATININE, [place]) CBC WITH DIFFERENTIAL 2020-01-24 Sagar [facility] 15:42:00 Medical Branch PROTHROMBIN TIME / INR 2020-01-24 Sagar [facility] 15:42:00 Medical Branch ACTIVATED PARTIAL THRMPLAS 2020-01-24 [facility]agar [facility] 15:42:00 [facility] Branch N-TERMINAL PRO-BNP 2020-01-24 Sagar [facility] 15:42:00 [facility] Branch NOTICE OF PRIVACY PRACTICES 2020-01-24 Doctor Unassigned, [facility] 15:12:23 [facility] CONSENT/REFUSAL FOR DIAGNOSIS 2020-01-24 Doctor Unassigned, [facility] TREATMENT 15:12:[address] [facility] [address] ABDOMEN PELVIS W CONTRAST 2019-11-13 Ayah Stevens [facility] 21:53:08 Medical Branch LIPASE 2019-11-13 Ayah Stevens [facility] xa 21:09:00 Medical Branch COMP. METABOLIC PANEL ([id number]) 2019-11-13 Ayah Stevens [facility] 21:09:00 Medical Branch CBC WITH DIFFERENTIAL 2019-11-13 Ayah Stevens [facility] 21:09:00 Medical Branch URINALYSIS 2019-11-13 Ayah Stevens [facility] 21:09:00 Medical Branch CONSENT/REFUSAL FOR DIAGNOSIS 2019-11-13 Doctor Unassigned, [facility] T[facility]MENT 20:30:36 [facility] XR CHEST 1 VW 2019-04-21 Javier Galeano [facility] xa 20:23:50 Medical [place] NOTICE OF PRIVACY PRACTICES 2019-04-21 [facility] 19:53:43 [facility] CONSENT/REFUSAL FOR DIAGNOSIS 2019-04-21 Doctor Unassigned, [facility] AND TREATMENT 19:53:30 [facility] [place] Encounters Start End Encounter Admission Attending Care Care Encounter Source Date/Time Date/Time Type Type Clinicians Facility Department ID 2021-06-21 Emergency [facility] [id number] Univers 20:02:07 ity [facility] 2023-07-26 2023-07-26 Outpatient R RODOLFO [facility] [id number] Univers 10:40:00 10:40:00 DORIS [facility] 2023-05-21 2023-05-21 Patient Doctor FLORES 1.2.840.114 [id number] Univers 00:00:00 00:00:00 Secure Msg Unassigned, [place] 350.1.13.10 ity of [facility] [place] [facility] 4.2.7.2.686 Lloyd [phone] [facility] 019 [place] 2023-05-20 2023-05-20 Emergency X AUFDERIDE [facility] ERT [id number] Univers 15:02:00 19:01:00 , KIMBERLYN bowling of [facility] 2023-05-20 2023-05-20 Emergency [facility] 1.2.840.114 [id number] Univers 15:02:00 19:01:00 , Kimberlyn ROXANA 350.1.13.10 i ty of [facility] 4.2.7.2.686 [facility] [id number] [facility] 084 [place] 2023-01-24 2023-01-24 [facility] [id number] Univers 22:54:00 23:52:00 NAREN itshelly [facility] 2023-01-24 2023-01-24 Emergency [facility] [id number] Univers 22:54:00 23:52:00 Dustin [place] 350.1.13.10 i ty of [place] 4.2.7.2.[address] [facility] [id number] 2023-01-24 2023-01-24 Orders Doctor SANDRA 1.2.840.114 [id number] Univers 00:00:00 00:00:00 Only Unassigned, MAS[place] 350.1.13.10 ity of [place] [facility] 4.2.7.2.686 [place] as [phone] [address] 2022-08-18 2022-08-18 [facility] [id number] Univers 15:00:00 15:00:00 DORIS [facility] 2022-07-22 2022-07-22 Outpatient R [facility] [id number] Univers 11:20:00 12:11:31 DORIS [facility] 2022-07-22 2022-07-22 Office [facility] 1.2.840.114 [id number] Univers 11:20:00 12:11:31 Visit Doris SCHMIDT 350.1.13.10 i ty of [place] 4.2.7.2.686 [phone] dic[address] 2022-07-22 2022-07-22 Orders Doctor SANDRA 1.2.840.114 [id number] Univers 00:00:00 00:00:00 Only Unassigned, MASOOD 350.1.13.10 ity of [place] [facility] 4.2.7.2.686 [place] as [phone] [address] 2022-01-21 2022-01-21 Emergency X [facility] ERT [id number] Univers 13:33:00 18:34:00 SHANEL tawnya [facility] 2022-01-21 2022-01-21 Emergency [facility] [id number] Univers 13:33:00 18:34:00 Shanel SCHMIDT 350.1.13.10 ity of [place] 4.2.7.2.[address] [facility] [id number] [address] 2021-08-12 2021-08-12 [facility] [id number] Univers 13:00:00 13:00:00 STEVE ity of [facility] 2021-08-12 2021-08-12 Imm/Inj Nurse, [facility] Pob Immunization [facility] 1.2.840.114 [id number] Univers 13:00:00 13:00:00 Visit Steve Guaman 350.1.13 .10 ity of [place].2.[phone] Ct dical NAL 421 [facility] 2021-03-24 2021-03-24 Outpatient WILTON SEGURA [facility] 7500 [facility] 09:48:00 13:57:00 CARLOS ALBERTO 2020-11-02 2020-11-02 Patient [facility] 1.2.840.114 [id number] Univers 00:00:00 00:00:00 Outreach Steve DOLLY 350.1.13.10 i ty of [facility] [place]2.7.2.[id number] [address] dical [address] [place] 2020-10-28 2020-10-28 Laboratory Lab, [facility] Fam Pob I [facility] 1.2. 840.114 [id number] Univers 09:33:47 09:53:47 Only Patti Goode [facility] 350.1.13.10 ity of [place] 4.2.7.2.686 Lloyd as Professio [phone] Ct dical nal 0[address] Branch Office Building One 2020-10-28 2020-10-28 Outpatient Senthil GOODE [facility] [id number] Univers 09:40:00 09:40:00 PATTI ity of [facility] 2020-10-28 2020-10-28 Letter Doctor FLORES 1.2.840.114 [id number] Univers 00:00:00 00:00:00 (Out) Unassigned, MASOOD 350.1.13.10 ity of [place] [facility] 4.2.7.2.686 [place] as [phone] [facility] 044 [place] 2020-10-28 2020-10-28 Letter Doctor FLORES 1.2.840.114 [id number] Univers 00:00:00 00:00:00 (Out) Unassigned, MASOOD 350.1.13.10 ity of [facility] [place] 4.2.7.2.686 [place] as [phone] [facility] 044 Branch 2020-10-24 2020-10-24 Telemedici Sarah eBth [facility] 1.2.840.114 [id number] Univers 15:48:40 16:18:40 ne Visit Aaliyah Schmidt 350.1.13.10 ity of [place] [id number] Ct dic[address] 2020-10-24 2020-10-24 Outpatient R SARAH BETH [facility] [id number] Univers 15:00:00 15:00:00 SENDIL ity of [facility] 2020-10-09 2020-10-09 Telephone [facility] [id number] Univers 00:00:00 00:00:00 Sendil Sondra Schmidt 350.1.13.10 ity of [place] [id number] [address] 2020-09-30 2020-09-30 Outpatient R [facility] [id number] Univers 08:00:00 08:00:00 ity of [facility] 2020-09-30 2020-09-30 Orders Doctor FLORES 1.2.840.114 [id number] Univers 00:00:00 00:00:00 Only Unassigned, MASOOD 350.1.13.10 ity of [facility] [place] 4.2.7.2.686 [place] as [phone] [facility] 009 Branch 2020-09-19 2020-09-19 Office [facility] 1.2.840.114 [id number] Univers 13:21:26 14:14:00 Visit Aaliyah Schmidt 350.1.13.10 ity of [place] [id number] Ct dic[address] 2020-09-19 2020-09-19 Outpatient R SARAH BETH [facility] [id number] Univers 13:30:00 13:30:00 SENDIL ity [facility] 2020-09-18 2020-09-18 Emergency [facility] 1.2.175.809 [id number] Univers 12:48:00 16:59:00 Estrellita Schmidt 350.1.13.10 i ty of [place] 4.2.7.2.686 [facility] [id number] 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 Main [facility] 1.2.8 40.114 [id number] Univers 14:41:25 09:09:51 Visit Serenity Vicente 350.1.13.10 ity [facility] 4.2.7.2.686 [facility] Professio [phone] Me dical nal [address] [facility] 2020-05-24 2020-05-24 [facility] [id number] Univers 14:30:00 14:30:00 SERENITY ity [facility] 2020-05-24 2020-05-24 Orders Doctor FLORES 1.2.840.114 [id number] Univers 00:00:00 00:00:00 Only Unassigned, MASOOD 350.1.13.10 ity of [place] [facility] 4.2.7.2.686 [facility] [phone] [facility] 009 [place] 2020-02-13 2020-02-13 Outpatient R TANIA [facility] [id number] Univers 10:39:59 23:59:00 ARJUN ity [facility] 2020-02-13 2020-02-13 [facility] 1.2.840.114 [id number] Univers 10:39:00 23:59:00 Encounter Arjun Schmidt 350.1.13.10 ity of [place] 4.2.7.2.686 [facility] [id number] [facility] 804 [place] 2020-02-13 2020-02-13 Orders Doctor FLORES 1.2.840.114 [id number] Univers 00:00:00 00:00:00 Only Unassigned, MASOOD 350.1.13.10 ity of [facility] [place] 4.2.7.2.686 [place] as [phone] [address] 2020-01-31 2020-01-31 Letter Unknown, [facility] 1.2.840.114 [id number] Univers 00:00:00 00:00:00 (Out) Attending Roxana 350.1.13.10 ity of [place] 4.2.7.2.686 [facility] Professio [phone] Ct dical [facility] 2020-01-24 2020-01-24 Emergency [facility] 1.2.923.628 [id number] Univers 10:22:00 12:33:00 Estrellita Schmidt 350.1.13.10 i ty of [place] 4.2.7.2.686 [facility] [phone] [address] 2020-01-24 2020-01-24 Emergency [facility] ERT [id number] Univers 10:22:00 12:33:00 ESTRELLITA ity [facility] 2020-01-24 2020-01-24 Orders Doctor SANDRA 1.2.840.114 [id number] Univers 00:00:00 00:00:00 Only Unassigned, MASOOD 350.1.13.10 ity of [facility] [place] [facility] 4.2.7.2.686 [place] as [phone] [address] 2019-11-13 2019-11-13 Emergency [facility] ERT [id number] Univers 15:52:45 17:24:00 AYAH bowling of [facility] 2019-11-13 2019-11-13 Emergency [facility] [id number] [id number] Univers 15:52:45 17:24:00 Ayah Schmidt 350.1.13.10 i ty of [place] 4.2.7.2.686 [facility] [phone] [address] 2019-04-21 2019-04-21 Emergency [facility] 1.2.107.506 [id number] Univers 15:03:10 15:40:00 Javier Schmidt 350.1.13.10 i ty of [place] 4.2.7.2.686 [facility] [phone] [facility] 084 Branch Results Test Description Test Time Test Comments [...] RDW-SD (test code = 43.6 fL 38.5-51.6 80225-6) RDW-CV (test code = 12.7 % 12.1-15.4 788-0) PLT (test code = 777-3) See_Comment [Au tomated message] The system which generated this result transmitted ref erence range: 150 - 328 10*3/?L. The reference range was not u sed to interpret this result as normal/abnormal. MPV (test code = 49806-0) 11.1 fL 9.8-13.0 NRBC/100 WBC (test code = See_Comment [ Automated message] The system 7325817269) which generated this result transmitted ref erence range: 0.0 - 10.0 /100 WBC s. The reference range was not u sed to interpret this result as normal/abnormal. NRBC x10^3 (test code = <0.01 See_Comment [Au tomated message] The system 3947946664) which generated this result transmitted ref erence range: 10*3/?L. The re ference range was not used to int erpret this result as normal/abnor mal. GRAN MAT (NEUT) % (test 63.8 % code = 770-8) IMM GRAN % (test code = 0.60 % 4752159842) LYMPH % (test code = 24.6 % 736-9) MONO % (test code = 8.3 % 5905-5) EOS % (test code = 713-8) 2.1 % BASO % (test code = 0.6 % 706-2) GRAN MAT x10^3(ANC) (test 5.54 10*3/uL 1.99-6.95 code = 3455068404) IMM GRAN x10^3 (test code 0.05 10*3/uL 0.00-0.06 = 2230613164) LYMPH x10^3 (test code = 2.13 10*3/uL 1.09-3.23 731-0) MONO x10^3 (test code = 0.72 10*3/uL 0.36-1.02 742-7) EOS x10^3 (test code = 0.18 10*3/uL 0.06-0.53 711-2) BASO x10^3 (test code = 0.05 10*3/uL 0.01-0.09 704-7) [facility] (58930)2022-01-21 20:55:52 Test Item Value Reference Range Interpretation Comments NA (test code = 142 mmol/L 135-145 8330153214) K (test code = 4.4 mmol/L 3.5-5.0 2224906370) CL (test code = 105 mmol/L 98-108 8054068942) CO2 TOTAL (test code 26 mmol/L 23-31 = 2145826762) AGAP (test code = 2-16 7110691702) BUN (test code = 16 mg/dL 7-23 7396895895) GLUCOSE (test code = 95 mg/dL 70-110 2126683300) CREATININE (test code 0.79 mg/dL 0.60-1.25 = 1478597743) TOTAL BILI (test code 0.5 mg/dL 0.1-1.1 = 0061082854) CALCIUM (test code = 9.1 mg/dL 8.6-10.6 2308563440) T PROTEIN (test code 8.1 g/dL 6.3-8.2 = 5583647223) ALBUMIN (test code = 4.2 g/dL 3.5-5.0 1750542062) ALK PHOS (test code = 78 U/L 34-122 2027459372) ALTv (test code = 18 U/L 5-50 1742-6) AST(SGOT) (test code 21 U/L 13-40 = 2251151377) eGFR (test code = mL/min/1.73m2 0860855169) HEATHER (test code = HEATHER) Association of [...] or urine or abnormalities in imaging tests). [facility] 20:55:37 Test Item Value Reference Range Interpretation Comments LIPASE (test code = 2312543688) 70 U/L 0-220 Lab Interpretation (test code = Normal 70589-7) [facility]entonTROPONIN [id number] 22:32:00 Test Item Value Reference Range Interpretation Comments TROPONIN I (test <0.012 See_Comment [Automated code = 9851149318) message] The system which generated this result [...] ? Lab Interpretation Normal (test code = 00223-0) [facility]entonD-[id number] 20:17:00 Test Item Value Reference Interpretation Comments Range D-DIMER (test code = <0.27 See_Comment [Autom ated 2239388273) message] The system which generated this result [...] diagnosis. Lab Interpretation Normal (test code = 96619-9) [facility] 1 [id number] 19:37:43HISTORY: Chest pain. TECHNIQUE: Portable AP erect view of the chest is obtained. Comparison ismade with 04/21/2019 study. FINDINGS: No acute pneumonia. No pneumothorax or pleural effusion orpulmonary congestion detected. Cardiac size is within upper normal limits. CONCLUSIONS: No signs of acute cardiopulmonary disease.[facility], Radiant Results Inft User - 09/18/2020 1:38 PM CSTHISTORY: Chest pain.TECHNIQUE: Portable AP erect view of the chest is obtained. Comparison ismade with 04/21/2019 study.FINDINGS: No acute pneumonia. No pneumothorax or pleural effusion orpulmonary congestion detected. Cardiac sizeis within upper normal limits. CONCLUSIONS: No signs of acute cardiopulmonary disease[facility] [id number] 19:37:00 Test Item Value Reference Range Interpretation Comments TROPONIN I (test <0.012 See_Comment [Automated code = 1264292675) message] The system which generated this result [...] ? Lab Interpretation Normal (test code = 55501-8) [facility] DentonaPTT2021-[facility]-27 19:32:00 Test Item Value Reference Range Interpretation Comments APTT Patient (test See_Comment [Automat ed code = 3173-2) message] The system which generated this result transmitted reference range : 23 - 38 Seconds . The reference range was not used to interpr et this result as normal/abnormal . HEATHER (test code = HEATHER) The [facility] patient population mean normal value for aPTT is 30 seconds. Lab Interpretation Normal (test code = 79793-4) [facility]entonProthrombin Time (PT) / [id number] 19:30:00 Test Item Value Reference Range Interpretation [...] tions. Lab Interpretation (test Normal code = 94885-7) [facility]entonBasi Metabolic Panel (NA, K, CL, CO2, GLUCOSE, BUN, CREATININE, CA)2020-09-18 19:26:00 Test Item Value Reference Range Interpretation Comments NA (test code = 140 mmol/L 135-145 1646957614) K (test code = 4.1 mmol/L 3.5-5 0010096749) CL (test code = 104 mmol/L 98-108 8590241533) CO2 TOTAL (test code = 26 mmol/L 23-31 9602218596) AGAP (test code = 2-16 5448313592) BUN (test code = 17 mg/dL 7-23 3729371719) GLUCOSE (test code = 110 mg/dL 70-110 6036666887) CREATININE (test code 0.84 mg/dL 0.6-1.25 = 9817583226) CALCIUM (test code = 9.0 mg/dL 8.6-10.6 0838762883) eGFR Calculation mL/min/1.73m2 (Non-) (test code = 0050880902) eGFR Calculation mL/min/1.73m2 () (test code = 1946566576) HEATHER (test code = HEATHER) Association of [...] or urine or abnormalities in imaging tests). [facility]enton[facility]atic Function Panel (ALB, T.PRO, BILI T, BU/BC, ALT, AST, ALK PHOS)2020-09-18 19:26:00 Test Item Value Reference Range Interpretation Comments TOTAL BILI (test code = 3093484050) 0.8 mg/dL 0.1-1.1 BILI UNCON (test code = 8052474989) 0.8 mg/dL 0.1-1.1 BILI CONJ (test code = 4032198905) 0.0 mg/dL 0-0.3 T PROTEIN (test code = 8988878460) 8.4 g/dL 6.3-8.2 H ALBUMIN (test code = 6721368604) 4.3 g/dL 3.5-5 ALK PHOS (test code = 6004668622) 76 U/L 34-122 ALTv (test code = 1742-6) 25 U/L 5-50 AST(SGOT) (test code = 8547408113) 25 U/L 13-40 Lab Interpretation (test code = Abnormal 93411-6) [facility] with [id number] 19:15:00 Test Item Value Reference Range Interpretation Comments WBC (test code = See_Comment [Automated 7790-2) message] The sy stem which generated this result transmitted reference range : 4.20 - 10.70 10*3/?L. The reference range was not used to interpret this result as normal/abnormal . RBC (test code = See_Comment [Automated 969-8) message] The sy stem which generated this [...] RDW-SD (test code = 40.2 fL 38.5-51.6 69325-2) RDW-CV (test code = 12.1 % 12.1-15.4 788-0) PLT (test code = See_Comment [Automated 777-3) message] The sy stem which generated this result transmitted reference range : 150 - 328 10*3/ ?L. The reference r roxi was not used to interpret this result as normal/abnormal . MPV (test code = 11.0 fL 9.8-13 29095-7) NRBC/100 WBC (test See_Comment [Automat ed code = 2515281921) message] The system which generated this result transmitted reference range : 0.0 - 10.0 /100 WBCs. The refer ence range was not u sed to interpret th is result as normal/abnormal . NRBC x10^3 (test code <0.01 See_Comment [Auto mated = 2173827197) message] The s ystem which generated this result transmitted reference range : 10*3/?L. The reference range was not used to interpret this result as normal/abnormal . GRAN MAT (NEUT) % 67.8 % (test code = 770-8) IMM GRAN % (test code 0.40 % = 1462402999) LYMPH % (test code = 22.8 % 736-9) MONO % (test code = 7.4 % 5905-5) EOS % (test code = 1.2 % 713-8) BASO % (test code = 0.4 % 706-2) GRAN MAT x10^3(ANC) 5.31 10*3/uL 1.99-6.95 (test code = 0068816895) IMM GRAN x10^3 (test 0.03 10*3/uL 0-0.06 code = 4224201364) LYMPH x10^3 (test code 1.78 10*3/uL 1.09-3.23 = 731-0) MONO x10^3 (test code 0.58 10*3/uL 0.36-1.02 = 742-7) EOS x10^3 (test code = 0.09 10*3/uL 0.06-0.53 711-2) BASO x10^3 (test code 0.03 10*3/uL 0.01-0.09 = 704-7) Lab Interpretation Abnormal (test code = 71709-1) [facility] 1 [id number] 14:54:00 Test Item Value Reference Range Interpretation Comments Anti-Trypsin (test code = 118 mg/dL 83-199 9928716434) Lab Interpretation (test code = Normal 75629-1) [facility]entonCERULOPLASMIN2020-10-03 14:53:00 Test Item Value Reference Range Interpretation Comments CERULO (test code = 7158854242) 25 mg/dL 25-63 Lab Interpretation (test code = Normal 67666-5) [facility]entonHAV ANTIBODY (IGG AND IGM)2020-05-25 04:16:00 Test Item Value Reference Range Interpretation Comments HAV Total (test code Positive = 2169184483) HAVT Semi-Quantitative (test code = 0904556967) HEATHER (test code = HEATHER) Indicates past or present infection with HAV or exposure to HAV due to vaccination. [facility]entonHBC ANTIBODY (IGM & IGG)2020-05-25 04:07:00 Test Item Value Reference Range Interpretation Comments HBC (test code = 8491192594) Negative HBC Semi-Quantitative (test code = 4564754015) [facility]entonHCV [id number] 04:07:00 Test Item Value Reference Range Interpretation Comments HCV Ab (test code = 36646-4) Negative HCV Semi-Quantitative (test code = 04384-4) [facility]entonHEPATITIS B SURFACE [id number] 04:07:00 Test Item Value Reference Range Interpretation Comments HBsAB (test code = Negative 8355444412) HBsAb mIU/mL Semi-Quantitative (test code = 1602471716) HEATHER (test code = Interpretation: HEATHER) ?Hepatitis B Surface Antibody ? Negative - Patient is considered to be not immune to infection with HBV. ? ? Positive - Anti-HBs detected at greater than or equal to 12 mIU/mL. ?Patient is considered to be immune to infection with HBV. ? [facility]entonALPHA [id number] 03:55:00 Test Item Value Reference Range Interpretation Comments AFP (test code = 2.5 ng/mL See_Comment [Automated 5192448913) message] The system which generated this result transmitted reference range : <=7.5. The reference range was not used to interpret this result as normal/abnormal . HEATHER (test code = HEATHER) Biotin has been reported to cause a negative bias, interpret results relative to patient's use of biotin. Lab Interpretation Normal (test code = 66383-8) [facility]entonHEPATITIS B CORE ANTIBODY [id number] 03:55:00 Test Item Value Reference Range Interpretation Comments HBCM Negative Semi-Quantitative (test code = 87651-7) HEATHER (test code = Biotin has been reported HEATHER) to cause a negative bias, interpret results relative to patient's use of biotin. [facility]entonHEPATITIS B SURFACE [id number] 03:49:00 Test Item Value Reference Range Interpretation Comments HBsAg Semi-Quantitative (test code = Negative Negative 5195-3) [facility]entonIONIZED [id number] 03:03:00 Test Item Value Reference Range Interpretation Comments IONIZED CA (test code = 4.80 mg/dL 4.5-5.3 7268280940) PH SERUM (test code = 0919089932) 7.35-7.45 L Lab Interpretation (test code = Abnormal 43344-5) [facility] DentonFERRITIN [id number] 22:25:00 Test Item Value Reference Range Interpretation Comments FERRITIN (test code = 282.0 ng/mL 18-464 3672764603) HEATHER (test code = HEATHER) Biotin has been reported to cause a negative bias, interpret results relative to patient's use of biotin. Lab Interpretation (test Normal code = 72503-4) [facility] DentonIRON [id number] 22:01:00 Test Item Value Reference Range Interpretation Comments IRON (test code = 2543745089) 82 ug/dL 50-160 TIBC (test code = 0133491224) 267 ug/dL 250-410 % FE SAT (test code = 0064689159) 31 % 20-50 Lab Interpretation (test code = Normal 81704-8) [facility] DentonHEPATIC FUNCTION PANEL (48886) (ALB,T.PRO,BILI T,BU/BC,ALT,AST,ALK PHOS)2020-05-24 21:53:00 Test Item Value Reference Range Interpretation Comments TOTAL BILI (test code = 9353237107) 0.5 mg/dL 0.1-1.1 BILI UNCON (test code = 8483557538) 0.4 mg/dL 0.1-1.1 BILI CONJ (test code = 6489439824) 0.0 mg/dL 0-0.3 T PROTEIN (test code = 9586493110) 7.4 g/dL 6.3-8.2 ALBUMIN (test code = 0581465636) 3.6 g/dL 3.5-5 ALK PHOS (test code = 7393141872) 78 U/L 34-122 ALTv (test code = 1742-6) 21 U/L 5-50 AST(SGOT) (test code = 8840930265) 21 U/L 13-40 Lab Interpretation (test code = Normal 17481-2) [facility] METABOLIC PANEL (NA, K, CL, CO2, GLUCOSE, BUN, CREATININE, CA)2020-05-24 21:52:00 Test Item Value Reference Range Interpretation Comments NA (test code = 141 mmol/L 135-145 4721871560) K (test code = 3.9 mmol/L 3.5-5 3634020782) CL (test code = 104 mmol/L 98-108 3106748171) CO2 TOTAL (test code = 28 mmol/L 23-31 3642829587) AGAP (test code = 2-16 6097659394) BUN (test code = 16 mg/dL 7-23 8871767259) GLUCOSE (test code = 100 mg/dL 70-110 5368966588) CREATININE (test code 0.85 mg/dL 0.6-1.25 = 2073143264) CALCIUM (test code = 9.3 mg/dL 8.6-10.6 9247971257) eGFR Calculation mL/min/1.73m2 (Non-) (test code = 3051961996) eGFR Calculation mL/min/1.73m2 () (test code = 8177054964) HEATHER (test code = HEATHER) Association of [...] or urine or abnormalities in imaging tests). [facility] DentonGAMMA [id number] 21:52:00 Test Item Value Reference Range Interpretation Comments GGT (test code = 2045131929) 41 U/L 13-58 Lab Interpretation (test code = Normal 69406-4) [facility] DentonaPTT2020-10-02 20:33:00 Test Item Value Reference Range Interpretation Comments APTT Patient (test See_Comment [Automat ed code = 3173-2) message] The system which generated this result transmitted reference range : 23 - 38 Seconds . The reference range was not used to interpr et this result as normal/abnormal . HEATHER (test code = HEATHER) The [facility] patient population mean normal value for aPTT is 30 seconds. Lab Interpretation Normal (test code = 60676-1) [facility] DentonPROTHROMBIN TIME / [id number] 20:31:00 Test Item Value Reference Range Interpretation [...] tions. Lab Interpretation (test Normal code = 53272-2) [facility] WITH [id number] 20:29:00 Test Item Value Reference Range Interpretation Comments WBC (test code = See_Comment [Automated 6690-2) message] The sy stem which generated this [...] RDW-SD (test code = 45.3 fL 38.5-51.6 93913-7) RDW-CV (test code = 13.0 % 12.1-15.4 788-0) PLT (test code = See_Comment [Automated 777-3) message] The sy stem which generated this result transmitted reference range : 150 - 328 10*3/ ?L. The reference r roxi was not used to interpret this result as normal/abnormal . MPV (test code = 11.2 fL 9.8-13 99599-5) NRBC/100 WBC (test See_Comment [Automat ed code = 0254563855) message] The system which generated this result transmitted reference range : 0.0 - 10.0 /100 WBCs. The refer ence range was not u sed to interpret th is result as normal/abnormal . NRBC x10^3 (test code <0.01 See_Comment [Auto mated = 7655230556) message] The s ystem which generated this result transmitted reference range : 10*3/?L. The reference range was not used to interpret this result as normal/abnormal . GRAN MAT (NEUT) % 58.1 % (test code = 770-8) IMM GRAN % (test code 0.50 % = 5804073619) LYMPH % (test code = 25.8 % 736-9) MONO % (test code = 7.7 % 5905-5) EOS % (test code = 7.2 % 713-8) BASO % (test code = 0.7 % 706-2) GRAN MAT x10^3(ANC) 4.44 10*3/uL 1.99-6.95 (test code = 1365222497) IMM GRAN x10^3 (test 0.04 10*3/uL 0-0.06 code = 8678585060) LYMPH x10^3 (test code 1.97 10*3/uL 1.09-3.23 = 731-0) MONO x10^3 (test code 0.59 10*3/uL 0.36-1.02 = 742-7) EOS x10^3 (test code = 0.55 10*3/uL 0.06-0.53 H 711-2) BASO x10^3 (test code 0.05 10*3/uL 0.01-0.09 = 704-7) Lab Interpretation Abnormal (test code = 57913-0) [facility] [id number] 17:54:06 HISTORY: Liver lesion. TECHNIQUE: MRI studies [...] liverconsistent with cavernous hemangioma.2. Bosniak type I leftrenal cyst.3. Gallstones without any evidence of acute cholecystitis.4. Short sliding hiatal hernia.[facility], Radiant Results Inft User - 02/13/2020 12:55 PM CDTHISTORY: Liver lesion.TECHNIQUE: MRI studies of the abdomen were obtained using T2 SSFSE, dualecho FSPGR, coronal VIBE/T2 HASTE, axial DWI, axial LAVA/T2 HASTEsequences. Multiphase contrast enhanced fat-sat LAVA sequences werecompleted after intr avenous injection of 20 mL of MultiHance.FINDINGS: Comparison [...] and appears normal.GALLBLADDER, BILE DUCTS, PANCREAS, ADRENAL GLANDS: Multiple smallgallstones noted without any evidence of acute cholecystitis. Biliary ductsand the pancreatic duct appear of normal size. Pancreas appears normal.KIDNEYS: Anterior cortex of the interpolar left kidney showed 18 mm Bosniaktype I cyst.Retroperitoneum, visualized intestines and bones appear normal.CONCLUSIONS:1. 3.6 cm lesion in the dorsal subdiaphragmatic right lobe of the liverconsistent with cavernous hemangioma.2. Bosniak type I left renal cyst.3. Gallstones without any evidence of acute cholecystitis.4. Short sliding hiatal hernia.[facility] Troponin [id number] 16:24:00 Test Item Value Reference Range Interpretation Comments TROPONIN I (test <0.012 See_Comment [Automated code = 1572715130) message] The system which generated this result [...] ? Lab Interpretation Normal (test code = 35618-9) [facility] [id number] 16:21:00 Test Item Value Reference Range Interpretation Comments NT-proBNP (test code 38 pg/mL See_Comment [Autom ated = 5934283165) message] The system which generated this result transmitted reference range : <=125. The reference range was not used to interpret this result as normal/abnormal . HEATHER (test code = HEATHER) Biotin has been reported to cause a negative bias, interpret results relative to patient's use of biotin. Lab Interpretation Normal (test code = 93767-9) [facility] (NA, K, CL, CO2, GLUCOSE, BUN, CREATININE, CA)2020-01-24 16:14:00 Test Item Value Reference Range Interpretation Comments NA (test code = 139 mmol/L 135-145 4461188374) K (test code = 4.4 mmol/L 3.5-5 7408357320) CL (test code = 105 mmol/L 98-108 8562398366) CO2 TOTAL (test code = 29 mmol/L 23-31 9541766124) AGAP (test code = 2-16 4835583623) BUN (test code = 13 mg/dL 7-23 5789765403) GLUCOSE (test code = 140 mg/dL 70-110 H 2857833483) CREATININE (test code = 0.87 mg/dL 0.6-1.25 1365784781) CALCIUM (test code = 9.3 mg/dL 8.6-10.6 5904834754) eGFR Calculation mL/min/1.73m2 (Non-) (test code = 2422679892) eGFR Calculation mL/min/1.73m2 () (test code = 4973363508) HEATHER (test code = HEATHER) Association of [...] tests). Lab Interpretation Abnormal (test code = 78938-0) [facility] (ALB, T.PRO, BILI T, BU/BC, ALT, AST, ALK PHOS)2020-01-24 16:13:00 Test Item Value Reference Range Interpretation Comments TOTAL BILI (test code = 7554371200) 0.7 mg/dL 0.1-1.1 BILI UNCON (test code = 2838524543) 0.9 mg/dL 0.1-1.1 BILI CONJ (test code = 2069942742) 0.0 mg/dL 0-0.3 T PROTEIN (test code = 6259206843) 8.3 g/dL 6.3-8.2 H ALBUMIN (test code = 9175919033) 4.2 g/dL 3.5-5 ALK PHOS (test code = 1339923615) 81 U/L 34-122 ALTv (test code = 1742-6) 16 U/L 5-50 AST(SGOT) (test code = 7727198458) 23 U/L 13-40 Lab Interpretation (test code = Abnormal 80178-9) [facility] 16:06:00 Test Item Value Reference Range Interpretation Comments APTT Patient (test See_Comment [Automat ed code = 3173-2) message] The system which generated this result transmitted reference range : 23 - 38 Seconds . The reference range was not used to interpr et this result as normal/abnormal . HEATHER (test code = HEATHER) The [facility] patient population mean normal value for aPTT is 30 seconds. Lab Interpretation Normal (test code = 25093-3) [facility]thrombin Time (PT) / [id number] 16:06:00 Test Item Value Reference Range Interpretation [...] tions. Lab Interpretation (test Normal code = 91516-9) [facility] WITH [id number] 15:58:00 Test Item Value Reference Range Interpretation Comments WBC (test code = See_Comment [Automated message] 6690-2) The system [employer] generated this result transmitted ref erence range: 4.20 - 1 0.70 10*3/?L. The re ference range was not u sed to interpret this result as normal/abnor mal. RBC (test code = See_Comment [Automated message] 789-8) The system [employer] generated this result transmitted ref erence range: [...] RDW-SD (test code 42.6 fL 38.5-51.6 = 79845-2) RDW-CV (test code 12.4 % 12.1-15.4 = 788-0) PLT (test code = See_Comment [Automated message] 777-3) The system [employer] generated this result transmitted ref erence range: 150 - 32 8 10*3/?L. The re ference range was not u sed to interpret this result as normal/abnor mal. MPV (test code = 11.1 fL 9.8-13 05512-6) NRBC/100 WBC (test See_Comment [Automat ed message] code = 4465649606) The [employer] which generated this result transmitted ref erence range: 0.0 - 10 .0 /100 WBCs. The refer ence range was not u sed to interpret this result as normal/abnor mal. NRBC x10^3 (test <0.01 See_Comment [Automated message] code = 1278495234) The [employer] which generated this result transmitted ref erence range: 10*3/?L. The reference range was not used to interpr et this result as normal/abnormal . GRAN MAT (NEUT) % 64.9 % (test code = 770-8) IMM GRAN % (test 0.60 % code = 7803595361) LYMPH % (test code 24.4 % = 736-9) MONO % (test code 6.7 % = 5905-5) EOS % (test code = 2.8 % 713-8) BASO % (test code 0.6 % = 706-2) GRAN MAT 4.65 10*3/uL 1.99-6.95 x10^3(ANC) (test code = 4661158693) IMM GRAN x10^3 0.04 10*3/uL 0-0.06 (test code = 7153294012) LYMPH x10^3 (test 1.75 10*3/uL 1.09-3.23 code = 731-0) MONO x10^3 (test 0.48 10*3/uL 0.36-1.02 code = 742-7) EOS x10^3 (test 0.20 10*3/uL 0.06-0.53 code = 711-2) BASO x10^3 (test 0.04 10*3/uL 0.01-0.09 code = 704-7) [facility] WO [id number] 15:54:24No acute findings. HISTORY:Headache, acute, normal neuro exam Dizziness, non-specific TECHNIQUE: Noncontrast head CT was performed. COMPARISON:None FINDINGS: The ventricles and sulci are appropriate for patient's age. There is no midline shift. The basal cisterns are preserved. No largevascular territory infarction, intracranial hemorrhage or mass effect isseen. The extracranial tissues demonstrate no acute findings. [facility], Radiant Results Inft User - 01/24/2020 10:55 AM CDTHISTORY:Headache, acute, normal neuro exam Dizziness, non-specific TECHNIQUE: Noncontrast head CT was performed.COMPARISON:NoneFINDINGS:The ventricles and sulci are appropriate for patient's age.There is no midline shift. The basal cisterns are preserved. No largevascular territory infarction, intracranial hemorrhage or mass effect isseen.The extracranial tissues demonstrate no acute findings.IMPRESSIONNo acute findings.[facility]CT A[facility]EN PELVIS W [id number] 22:01:58Impression: Sigmoid diverticulosis with no evidence of [...] cyst. There is no evidence of free fluid, air, or lymphadenopathy seen in theabdomen and pelvis. No evidence of dilated bowel loops. Sigmoid divert iculosis with no evidenceof diverticulitis. Normal appendix is seen in the right lower quadrant. Theurinary bladder appears normal. The prostate is enlarged [...] Recommend triple phase CTfor confirmation.Enlarged prostate. Mild gynecom astia.[facility]COMP. METABOLIC PANEL (60213)2019-11-13 21:30:00 Test Item Value Reference Range Interpretation Comments NA (test code = 136 mmol/L 135-145 0136017830) K (test code = 3.9 mmol/L 3.5-5 6431145091) CL (test code = 101 mmol/L 98-108 8971281680) CO2 TOTAL (test code = 25 mmol/L 23-31 0593581867) AGAP (test code = 2-16 3848233681) BUN (test code = 13 mg/dL 7-23 0974719116) GLUCOSE (test code = 101 mg/dL 70-110 6649723991) CREATININE (test code = 0.91 mg/dL 0.6-1.25 0053227579) TOTAL BILI (test code = 0.5 mg/dL 0.1-1.3 7997614597) CALCIUM (test code = 9.3 mg/dL 8.6-10.6 8463825466) T PROTEIN (test code = 8.6 g/dL 6.3-8.2 H 6387928790) ALBUMIN (test code = 4.4 g/dL 3.5-5 5685106898) ALK PHOS (test code = 82 U/L 34-122 8768467397) ALTv (test code = 25 U/L 5-50 1742-6) AST(SGOT) (test code = 23 U/L 13-40 7041168698) eGFR Calculation mL/min/1.73m2 (Non-) (test code = 6131994310) eGFR Calculation mL/min/1.73m2 () (test code = 7437742438) HEATHER (test code = HEATHER) Association of [...] tests). Lab Interpretation Abnormal (test code = 78971-9) [facility]2020-[facility] 21:30:00 Test Item Value Reference Range Interpretation Comments LIPASE (test code = 0563540240) 68 U/L 0-220 Lab Interpretation (test code = Normal 09573-2) [facility]IS2020-03-23 21:28:00 Test Item Value Reference Range Interpretation Comments APPEARANCE (test code = Clear Clear 4686207149) COLOR (test code = Straw Yellow A 2549410637) PH (test code = 4.8-8.0 3855246330) SP GRAVITY (test code = 1.003-1.030 2140022544) GLU U QUAL (test code = Normal Normal 5346848169) BLOOD (test code = Negative Negative 2786790580) KETONES (test code = 5 mg/dL Negative A 4694936390) PROTEIN (test code = Negative Negative 2887-8) UROBILIN (test code = Normal Normal 2183583154) BILIRUBIN (test code = Negative Negative 3419548416) NITRITE (test code = Negative Negative 7997001522) [place] (test code = Negative Negative 8497885024) RBC/HPF (test code = See_Comment [Autom ated message] 1081695842) The system [employer] generated this result transmitted ref erence range: 0 - 3 HP F. The reference range was not used to int erpret this result as normal/abnormal . WBC/HPF (test code = See_Comment [Autom ated message] 6197660409) The system [employer] generated this result transmitted ref erence range: 0 - 5 HP F. The reference range was not used to int erpret this result as normal/abnormal . BACTERIA (test code = Negative Negative 2011768516) SQ EPITH (test code = HPF 3757670467) Lab Interpretation (test Abnormal code = 46985-6) [facility] WITH [id number] 21:19:00 Test Item Value Reference Range Interpretation Comments WBC (test code = See_Comment [Automated message] 6690-2) The system [employer] generated this result transmitted ref erence range: 4.20 - 1 0.70 10*3/?L. The re ference range was not u sed to interpret this result as normal/abnor mal. RBC (test code = See_Comment [Automated message] 789-8) The system [employer] generated this result transmitted ref erence range: [...] RDW-SD (test code 42.3 fL 38.5-51.6 = 02972-7) RDW-CV (test code 12.1 % 12.1-15.4 = 788-0) PLT (test code = See_Comment [Automated message] 777-3) The system whic h generated this result transmitted ref erence range: 150 - 32 8 10*3/?L. The re ference range was not u sed to interpret this result as normal/abnor mal. MPV (test code = 10.6 fL 9.8-13 54890-6) NRBC/100 WBC (test See_Comment [Automat ed message] code = 5453919485) The syste m which generated this result transmitted ref erence range: 0.0 - 10 .0 /100 WBCs. The refer ence range was not u sed to interpret this result as normal/abnor mal. NRBC x10^3 (test <0.01 See_Comment [Automated message] code = 4285807917) The syste m which generated this result transmitted ref erence range: 10*3/?L. The reference range was not used to interpr et this result as normal/abnormal . GRAN MAT (NEUT) % 66.8 % (test code = 770-8) IMM GRAN % (test 0.30 % code = 4194048251) LYMPH % (test code 23.0 % = 736-9) MONO % (test code 7.7 % = 5905-5) EOS % (test code = 1.7 % 713-8) BASO % (test code 0.5 % = 706-2) GRAN MAT 5.86 10*3/uL 1.99-6.95 x10^3(ANC) (test code = 0954773946) IMM GRAN x10^3 0.03 10*3/uL 0-0.06 (test code = 0406139878) LYMPH x10^3 (test 2.02 10*3/uL 1.09-3.23 code = 731-0) MONO x10^3 (test 0.68 10*3/uL 0.36-1.02 code = 742-7) EOS x10^3 (test 0.15 10*3/uL 0.06-0.53 code = 711-2) BASO x10^3 (test 0.04 10*3/uL 0.01-0.09 code = 704-7) [facility] 1 [id number] 20:28:16* * * * * * * * ORIGINAL REPORT * * * * * * * *CHEST PORTABLE ONE VIEW HISTORY:Cough TECHNIQUE: Frontal, portable projection of the chest is obtained. COMPARISON: 12/01/2015 FINDINGS: The lungs are clear. The heart size and mediastinal silhouetteare normal. No pleural effusion or pneumothorax is seen. CONCLUSIONS: No acute cardiopulmonary disease. [facility], Radiant Results Inft User - 04/21/2019 3:30 PM CDT* * * * * * * * ORIGINAL REPORT * * * * * * * *CHEST PORTABLE ONE VIEWHISTORY:CoughTECHNIQUE: Frontal, portable projection of the chest is obtained.COMPARISON: 12/01/2015FINDINGS: The lungs are clear. The heart size and mediastinal silhouetteare normal. No pleural effusion or pneumothorax is seen.CONCLUSIONS: No acute cardiopulmonary disease.[facility]
--- NOTE | 2023-06-27 03:45 | ER ---
Nurse's Notes [facility] Name: Clifton Garcia Age: 58 yrs Sex: Male : 1965 Arrival Date: 06/26/2023 Time: 22:42 Bed External Waiting Private MD: Diagnosis: Abdominal pain, unspecified Presentation: 06/26 23:37 Note pt asked registration if it would be a long wait and after being told it could be vc1 a couple of hours patient decided he did not want to be seen. - Family history:: not pertinent. ED Course: 22:44 Patient arrived in ED. jj6 23:44 Jeremi Carr MD is Attending Physician. sp4 Administered Medications: No medications were administered Outcome: 23:37 Eloped from waiting room, before seeing physician Time discovered patient gone: vc1 June 26, 2023 at 23:37 23:37 Patient left the ED. vc1 Signatures: Lali Calderón jj6 Irais Oates RN RN vc1 Jeremi Carr MD MD sp4 Corrections: (The following items were deleted from the chart) 06/27 03:45 03:45 Patient left the ED. vc1 vc1
== END 2023-06-27 03:45 | disposition left against medical advice (07) ==
LOC: ER 22:42
DX: Z02.9 Encounter for administrative examinations, unspecified (principal)

== ENCOUNTER 2023-07-03 13:28 | Emergency (ER) | payer BC ==
--- OUTSIDE RECORDS SUMMARY | 2023-07-03 13:42 | XMS REPORT | Continuity of Care Document ---
:1965 Author Organization [facility] t Address [address] [facility] [address] [place] [address] Care Team Providers Name Role Phone Shalom Rangel Primary Care Physician PETE RADER Attending Clinician Unavailable DORIS MITCHELL Attending Clinician Unavailable Doctor Unassigned, [place] Attending Clinician Unavailable KIMBERLYN SWEENEY Attending Clinician Unavailable Kimberlyn Sweeney MD Attending Clinician [phone] NAREN CONNOR Attending Clinician Unavailable Naren Connor [...] Attending Clinician PATTI GOODE Attending Clinician Unavailable Sarah Beth PAZ, Aaliyah GrangerHEdwina Attending Clinician AALIYAH BURLESONHEdwina Attending Clinician Unavailable Estrellita Keith MD Attending Clinician Pob, [facility] Main Attending Clinician Unavailable Serenity Vicente [...] Number Effective Date Expiration Date S jarrod [facility] [id number] 2015 00:00:00 Problems Condition Condition Condition Status Onset Resolution Last Treating Co mments Source Name Details Category Date Date Treatment Clinician Date No known No known Disease Unive rs active active ity of problems problems [facility] Allergies, Adverse Reactions, Alerts Allergy Allergy Status Severity Reaction(s) Onset Inactive Treating Comm ents Source Name Type Date Date Clinician NO KNOWN Drug Active Univers ALLERGIE Class ity of S [facility] Social History Social Habit Start Date Stop Date Quantity Comments Source Sexual orientation Univer sity [facility] History of Social 2023-01-24 2023-01-24 Univers ity of function 00:00:00 00:00:00 [facility] Exposure to 2022-07-12 2022-07-22 Not sure University SARS-CoV-2 (event) 00:00:00 10:58:00 [facility] Tobacco use and 2020-09-19 2020-09-19 Smokeless Universit y of exposure 00:00:00 00:00:00 tobacco non-user [facility] Sex Assigned [birth year] Universit y of 00:00:00 00:00:00 [facility] Smoking Status Start Date Stop Date Source Never smoked tobacco [facility] Unknown if ever smoked [facility] Medications Ordered Filled Start Stop Current Ordering Indication Dosage Frequency Signature Comments Components Source Medication Medication Date Date Medication? Clinician (SIG) Name Name maalox:diph 2022- No 15mL 15 mL, Uni vers enhydrAMINE 05-20 Oral, ity of :lidocaine 21:00: 21:04 ONCE, 1 [place] 2 % viscous 00 :00 dose, On Medi priti 1:1:1 [facility] (FIRST-MOUT 05/20/23 at [facility]) 1600, oral Routine suspension 15 mL iopamidol 2022- No [id number] 80mL 80 mL, U nivers (ISOVUE 05-20 Intravenou ity o f 370-500 mL) 20:56: 20:56 s, ONCE, 1 [place] injection 00 :00 dose, On Medica l 80 mL [facility] 05/20/23 at 1615, Routine azithromyci 2022- No [id number] 250mg Take 1 Univers n 250 mg 01-24 06-10 tablet by ity o f tablet 00:00: 04:59 mouth [place] 00 :00 SEE-INSTRU Medical CTIONS for Branch 5 days. Take 500 mg day 1, then 250 mg days 2 to 5. omeprazole 2021-08 Yes 40mg Take 40 mg U nivers 40 mg 1-30 by mouth ity of capsule 11:13: daily. [address] montelukast 2021-08 Yes 10mg Take 10 mg Univers 10 mg 1-30 by mouth ity of tablet 11:13: daily. [address] bisoprolol 2021-08 Yes 5mg Take 5 mg Un uriah 5 mg tablet 1-30 by mouth ity of 11:13: daily. [address] omeprazole 2021-08 Yes 40mg Take 40 mg U nivers 40 mg 1-30 by mouth ity of capsule 11:13: daily. [address] montelukast 2021-08 Yes 10mg Take 10 mg Univers 10 mg 1-30 by mouth ity of tablet 11:13: daily. [address] bisoprolol 2021-08 Yes 5mg Take 5 mg Un uriah 5 mg tablet 1-30 by mouth ity of 11:13: daily. [address] omeprazole 2021-08 Yes 40mg Take 40 mg U nivers 40 mg 1-30 by mouth ity of capsule 11:13: daily. [address] montelukast 2021-08 Yes 10mg Take 10 mg Univers 10 mg 1-30 by mouth ity of tablet 11:13: daily. [address] bisoprolol 2021-08 Yes 5mg Take 5 mg Un uriah 5 mg tablet 1-30 by mouth ity of 11:13: daily. [address] omeprazole 2021-08 Yes 40mg Take 40 mg U nivers 40 mg 1-30 by mouth ity of capsule 11:13: daily. [address] montelukast 2021-08 Yes 10mg Take 10 mg Univers 10 mg 1-30 by mouth ity of tablet 11:13: daily. [address] bisoprolol 2021-08 Yes 5mg Take 5 mg Un uriah 5 mg tablet 1-30 by mouth ity of 11:13: daily. [address] omeprazole 2021-08 Yes 40mg Take 40 mg U nivers 40 mg 1-30 by mouth ity of capsule 11:13: daily. [address] montelukast 2021-08 Yes 10mg Take 10 mg Univers 10 mg 1-30 by mouth ity of tablet 11:13: daily. [address] bisoprolol 2021-08 Yes 5mg Take 5 mg Un uriah 5 mg tablet 1-30 by mouth ity of 11:13: daily. [address] omeprazole 2021-08 Yes 40mg Take 40 mg U nivers 40 mg 1-30 by mouth ity of capsule 11:13: daily. [address] montelukast 2021-08 Yes 10mg Take 10 mg Univers 10 mg 1-30 by mouth ity of tablet 11:13: daily. [address] bisoprolol 2021-08 Yes 5mg Take 5 mg Un uriah 5 mg tablet 1-30 by mouth ity of 11:13: daily. [address] iopamidol 2021- No [id number] 50mL 50 mL, Univers (ISOVUE 01-21 Intravenou [...] Branch at 1615, Routine lactulose 2021- No [id number] 30mL Take 30 mL Univers 10 gram/15 01-21 by mouth 2 it y of mL oral 00:00: 04:59 (two) [place] solution 00 :00 times Medical daily for Branch 7 days. bisoprolol 2020-0 Yes 5mg Take 5 mg Un uriah 5 mg tablet 1-28 by mouth ity of 19:32: daily. [address] bisoprolol 2020-0 Yes 5mg Take 5 mg Un uriah 5 mg tablet 1-28 by mouth ity of 19:32: daily. [address] bisoprolol 2020-0 Yes 5mg Take 5 mg Un uriah 5 mg tablet 1-28 by mouth ity of 19:32: daily. [address] bisoprolol 2020-0 Yes 5mg Take 5 mg Un uriah 5 mg tablet 1-28 by mouth ity of 19:32: daily. [address] bisoprolol 2020-0 Yes 5mg Take 5 mg Un uriah 5 mg tablet 1-28 by mouth ity of 19:32: daily. [address] bisoprolol 2020-0 Yes 5mg Take 5 mg Un uriah 5 mg tablet 1-28 by mouth ity of 19:32: daily. [address] bisoprolol 2020-0 Yes 5mg Take 5 mg Un uriah 5 mg tablet 1-28 by mouth ity of 19:32: daily. [address] bisoprolol 2020-0 Yes 5mg Take 5 mg Un uriah 5 mg tablet 1-28 by mouth ity of 19:32: daily. [address] bisoprolol 0 Yes 5mg Take 5 mg Un uriah 5 mg tablet 1-28 by mouth ity of 19:32: daily. [address] omeprazole 0 Yes 40mg Take 40 mg U nivers 40 mg 1-28 by mouth ity of capsule 19:32: daily. [address] montelukast 0 Yes 10mg Take 10 mg Univers 10 mg 1-28 by mouth ity of tablet 19:32: daily. [address] omeprazole 0 Yes 40mg Take 40 mg U nivers 40 mg 1-28 by mouth ity of capsule 19:32: daily. [address] montelukast 0 Yes 10mg Take 10 mg Univers 10 mg 1-28 by mouth ity of tablet 19:32: daily. [address] omeprazole 0 Yes 40mg Take 40 mg U nivers 40 mg 1-28 by mouth ity of capsule 19:32: daily. [address] montelukast 0 Yes 10mg Take 10 mg Univers 10 mg 1-28 by mouth ity of tablet 19:32: daily. [address] omeprazole 0 Yes 40mg Take 40 mg U nivers 40 mg 1-28 by mouth ity of capsule 19:32: daily. [address] montelukast 0 Yes 10mg Take 10 mg Univers 10 mg 1-28 by mouth ity of tablet 19:32: daily. [address] omeprazole 0 Yes 40mg Take 40 mg U nivers 40 mg 1-28 by mouth ity of capsule 19:32: daily. [address] montelukast 0 Yes 10mg Take 10 mg Univers 10 mg 1-28 by mouth ity of tablet 19:32: daily. [address] omeprazole 0 Yes 40mg Take 40 mg U nivers 40 mg 1-28 by mouth ity of capsule 19:32: daily. [address] montelukast 0 Yes 10mg Take 10 mg Univers 10 mg 1-28 by mouth ity of tablet 19:32: daily. [address] omeprazole 0 Yes 40mg Take 40 mg U nivers 40 mg 1-28 by mouth ity of capsule 19:32: daily. [address] montelukast Yes 10mg Take 10 mg Univers 10 mg 09-19 by mouth ity of tablet 19:32: daily. [address] omeprazole Yes 40mg Take 40 mg U nivers 40 mg 09-19 by mouth ity of capsule 19:32: daily. [address] montelukast Yes 10mg Take 10 mg Univers 10 mg 09-19 by mouth ity of tablet 19:32: daily. [address] omeprazole Yes 40mg Take 40 mg U nivers 40 mg 09-19 by mouth ity of capsule 19:32: daily. [address] montelukast Yes 10mg Take 10 mg Univers 10 mg 09-19 by mouth ity of tablet 19:32: daily. [address] loratadine 2020- No 10mg Take 10 mg Univers (CLARITIN) 09-19 by mouth ity of 10 mg 19:32: 00:00 daily. [place] tablet 05 :00 [facility] loratadine 2020- No 10mg Take 10 mg Univers (CLARITIN) 09-19 by mouth ity of 10 mg 19:32: 00:00 daily. [place] tablet 05 :00 [facility] lisinopril 2020- No 5mg Take 5 mg U nivers (PRINIVIL,Z 09-19 by mouth ity of ESTRIL) 5 19:32: 00:00 daily. [place] mg tablet 03 :00 [facility] lisinopril 2020- No 5mg Take 5 mg U nivers (PRINIVIL,Z 09-19 by mouth ity of ESTRIL) 5 19:32: 00:00 daily. [place] mg tablet 03 :00 [facility] ibuprofen 2020- No 400mg Take 400 Un uriah (MOTRIN) 09-19- mg by ity of 400 mg 19:31: 00:00 mouth [place] tablet 59 :00 every 8 Medical (eight) Branch hours as needed. ibuprofen 2020- No 400mg Take 400 Un uriah (MOTRIN) 09-19-28 mg by ity of 400 mg 19:31: [...] 1-28 by mouth ity of 13:32: daily. [address] bisoprolol 0 Yes 5mg Take 5 mg Un uriah 5 mg tablet 1-28 by mouth ity of 13:32: daily. [address] bisoprolol 0 Yes 5mg Take 5 mg Un uriah 5 mg tablet 1-28 by mouth ity of 13:32: daily. [address] omeprazole 0 Yes 40mg Take 40 mg U nivers 40 mg 1-28 by mouth ity of capsule 13:32: daily. [address] montelukast 0 Yes 10mg Take 10 mg Univers 10 mg 1-28 by mouth ity of tablet 13:32: daily. [address] omeprazole 0 Yes 40mg Take 40 mg U nivers 40 mg 1-28 by mouth ity of capsule 13:32: daily. [address] montelukast 0 Yes 10mg Take 10 mg Univers 10 mg 1-28 by mouth ity of tablet 13:32: daily. [address] omeprazole 0 Yes 40mg Take 40 mg U nivers 40 mg 1-28 by mouth ity of capsule 13:32: daily. [address] montelukast 0 Yes 10mg Take 10 mg Univers 10 mg 1-28 by mouth ity of tablet 13:32: daily. [address] gadobenate 0 2020- No .2mL/kg 0.2 mL/kg, Univers dimeglumine 02-12 Intravenou i ty of (MULTIHANCE 16:30: 16:30 s, ONCE, 1 [place] -20 mL) 00 :00 dose, Tue Medical injection 02/13/20 at Bran ch 0.2 mL/kg 1130, Routine ketorolac 2019-0 2020- No 30mg 30 mg, Unive rs (TORADOL) [...] 01/24/20 at 1145, AFSHIN ondansetron 2020-0 Yes [id number] 4mg Take 1 Univers 4 mg 6-03 tablet by ity of disintegrat 00:00: mouth [place] ing tablet 00 every 4 Medica l (four) Branch hours as needed for Nausea and Vomiting (N/V). meclizine 2020-0 Yes [id number] 25mg Take 1 Un uriah 25 mg 6-03 tablet by ity of tablet 00:00: mouth [place] 00 every 6 Medical (six) Branch hours. ondansetron 2020-0 Yes [id number] 4mg Take 1 Univers 4 mg 6-03 tablet by ity of disintegrat 00:00: mouth [place] ing tablet 00 every 4 Medica l (four) Branch hours as needed for Nausea and Vomiting (N/V). meclizine 2020-0 Yes [id number] 25mg Take 1 Un uriah 25 mg 6-03 tablet by ity of tablet 00:00: mouth [place] 00 every 6 Medical (six) Branch hours. ondansetron 2020-0 Yes [id number] 4mg Take 1 Univers 4 mg 6-03 tablet by ity of disintegrat 00:00: mouth [place] ing tablet 00 every 4 Medica l (four) Branch hours as needed for Nausea and Vomiting (N/V). meclizine 2020-0 Yes [id number] 25mg Take 1 Un uriah 25 mg 6-03 tablet by ity of tablet 00:00: mouth [place] 00 every 6 Medical (six) Branch hours. ondansetron 2020-0 Yes [id number] 4mg Take 1 Univers 4 mg 6-03 tablet by ity of disintegrat 00:00: mouth [place] ing tablet 00 every 4 Medica l (four) Branch hours as needed for Nausea and Vomiting (N/V). meclizine 2020-0 Yes [id number] 25mg Take 1 Un uriah 25 mg 6-03 tablet by ity of tablet 00:00: mouth [place] 00 every 6 Medical (six) Branch hours. ondansetron 2020-0 Yes [id number] 4mg Take 1 Univers 4 mg 6-03 tablet by ity of disintegrat 00:00: mouth [place] ing tablet 00 every 4 Medica l (four) Branch hours as needed for Nausea and Vomiting (N/V). meclizine 2020-0 Yes [id number] 25mg Take 1 Un uriah 25 mg 6-03 tablet by ity of tablet 00:00: mouth [place] 00 every 6 Medical (six) Branch hours. ondansetron 2020-0 Yes [id number] 4mg Take 1 Univers 4 mg 6-03 tablet by ity of disintegrat 00:00: mouth [place] ing tablet 00 every 4 Medica l (four) Branch hours as needed for Nausea and Vomiting (N/V). meclizine 2020-0 Yes [id number] 25mg Take 1 Un uriah 25 mg 6-03 tablet by ity of tablet 00:00: mouth [place] 00 every 6 Medical (six) Branch hours. ondansetron 2020-0 Yes [id number] 4mg Take 1 Univers 4 mg 6-03 tablet by ity of disintegrat 00:00: mouth [place] ing tablet 00 every 4 Medica l (four) Branch hours as needed for Nausea and Vomiting (N/V). meclizine 2020-0 Yes [id number] 25mg Take 1 Un uriah 25 mg 6-03 tablet by ity of tablet 00:00: mouth [place] 00 every 6 Medical (six) Branch hours. ondansetron 2020-0 Yes [id number] 4mg Take 1 Univers 4 mg 6-03 tablet by ity of disintegrat 00:00: mouth [place] ing tablet 00 every 4 Medica l (four) Branch hours as needed for Nausea and Vomiting (N/V). meclizine 2020-0 Yes [id number] 25mg Take 1 Un uriah 25 mg 6-03 tablet by ity of tablet 00:00: mouth [place] 00 every 6 Medical (six) Branch hours. ondansetron 2020- No [id number] 4mg Take 1 Univers 4 mg 6-09-19 tablet by ity of disintegrat 00:00: 00:00 [place] tablet 00 :00 every 4 Medica l (four) Branch hours as needed for Nausea and Vomiting (N/V). meclizine 2019-2020- No [id number] 25mg Take 1 U nivers 25 mg 6-09-19 tablet by ity of tablet 00:00: 00:00 mouth [place] 00 :00 every 6 Medical (six) Branch hours. ondansetron 2019-2020- No [id number] 4mg Take 1 Univers 4 mg 6-09-19 tablet by ity of disintegrat 00:00: 00:00 [place] tablet 00 :00 every 4 Medica l (four) Branch hours as needed for Nausea and Vomiting (N/V). meclizine 2020- No [id number] 25mg Take 1 U nivers 25 mg 6-09-19 tablet by ity of tablet 00:00: 00:00 mouth [place] 00 :00 every 6 Medical (six) Branch hours. ciprofloxac 2020-0 Yes [id number] 500mg Take 1 Univers in HCl 500 3-24 tablet by ity of mg tablet 00:00: mouth (two) Medical times Branch daily. ciprofloxac 2020-0 Yes [id number] 500mg Take 1 Univers in HCl 500 3-24 tablet by ity of mg tablet 00:00: mouth (two) Medical times Branch daily. ciprofloxac 2020-0 Yes [id number] 500mg Take 1 Univers in HCl 500 3-24 tablet by ity of mg tablet 00:00: mouth (two) Medical times Branch daily. ciprofloxac 2020-0 Yes [id number] 500mg Take 1 Univers in HCl 500 3-24 tablet by ity of mg tablet 00:00: mouth 2 (two) Medical times Branch daily. ciprofloxac 2020-0 Yes [id number] 500mg Take 1 Univers in HCl 500 3-24 tablet by ity of mg tablet 00:00: mouth 2 (two) Medical times Branch daily. ciprofloxac 2020-0 Yes [id number] 500mg Take 1 Univers in HCl 500 3-24 tablet by ity of mg tablet 00:00: mouth 2 (two) Medical times Branch daily. ciprofloxac 2020-0 Yes [id number] 500mg Take 1 Univers in HCl 500 3-24 tablet by ity of mg tablet 00:00: mouth 2 [place] (two) Medical times Branch daily. ciprofloxac 2020-0 Yes [id number] 500mg Take 1 Univers in HCl 500 3-24 tablet by ity of mg tablet 00:00: mouth 2 [place] (two) Medical times Branch daily. ciprofloxac 2020-0 Yes [id number] 500mg Take 1 Univers in HCl 500 3-24 tablet by ity of mg tablet 00:00: mouth 2 [place] (two) Medical times Branch daily. ciprofloxac 2020-0 Yes [id number] 500mg Take 1 Univers in HCl 500 3-24 tablet by ity of mg tablet 00:00: mouth 2 [place] (two) Medical times Branch daily. ciprofloxac 2020-0 2020- No [id number] 500mg Take 1 Univers in HCl 500 3-24 -28 tablet by ity of mg tablet 00:00: 00:00 mouth 2 [place] 00 :[place] (two) Medical times Branch daily. ciprofloxac 2020-0 2020- No [id number] 500mg Take 1 Univers in HCl 500 3-24 -28 tablet by ity of mg tablet 00:00: 00:00 mouth 2 [place] 00 :00 (two) Medical times Branch daily. metroNIDAZO 2019-0 2019- No 500mg 500 mg, U nivers LE (FLAGYL) 11-12 Oral, ity of tablet 500 23:15: 22:18 ONCE, 1 [place] as mg 00 :00 dose, [facility] 11/13/19 at Branch 1815, AFSHIN
Re ason for Anti-Infec tive: Documented Infection< br>Documen dorcas Infection Site: Abdominal< br>Duratio n of Therapy: Other (see Comments) ciprofloxac 2020-0 2019- No 500mg 500 mg, U nivers in HCl 11-12 Oral, ity of (CIPRO) 23:15: 22:18 ONCE, 1 [place] tablet 500 00 :00 dose, Mon Medi priti mg 11/13/19 at Branch 1815, AFSHIN
Re ason for Anti-Infec tive: Documented Infection< br>Documen dorcas Infection Site: Abdominal< br>Duratio n of Therapy: Other (see Comments) ketorolac 2019-2019- No 30mg 30 mg, Unive rs (TORADOL) 11-12 Slow IV ity of injection 22:15: 21:10 Push, [place] 30 mg 00 :00 ONCE, 1 Medical dose, [facility] 11/13/19 at 1715, AFSHIN
Fa culty member approving Restricted medication : AYAH STEVENS iohexol 2019- No 104mL 104 mL, Unive rs (OMNIPAQUE 11-12 Intravenou it y of 350 22:00: 21:43 s, ONCE, 1 [place] BULK-100 00 :00 dose, Mon Medica l mL) 11/13/19 at Branch injection 1700, 104 mL Routine NaCl 0.9% 2019- No 1000mL at 999 Uni vers (NS) bolus 11-12 mL/hr, ity of infusion 22:00: 22:19 1,000 mL, [place] as 1,000 mL 00 :00 IV Medical Infusion, Branch ONCE, 1 dose, [facility] 11/13/19 at 1700, STAT metroNIDAZO 2019- 2020- No [id number] 500mg Take 1 Univers LE 500 mg 11-12 tablet by ity of tablet 00:00: 04:59 mouth [place] 00 :00 every 8 Medical (eight) Branch hours for 8 days. meclizine 2020-0 Yes [id number] 25mg Take 1 U nivers 25 mg 1-03 tablet by ity of tablet 00:00: mouth 3 [place] 00 (three) Medical times Branch daily as needed for Dizziness. meclizine 2020-0 Yes [id number] 25mg Take 1 U nivers 25 mg 1-03 tablet by ity of tablet 00:00: mouth 3 [place] 00 (three) Medical times Branch daily as needed for Dizziness. meclizine 2020-0 Yes [id number] 25mg Take 1 U nivers 25 mg 1-03 tablet by ity of tablet 00:00: mouth 3 00 (three) Medical times Branch daily as needed for Dizziness. meclizine 2020-0 Yes [id number] 25mg Take 1 U nivers 25 mg 1-03 tablet by ity of tablet 00:00: mouth 3 00 (three) Medical times Branch daily as needed for Dizziness. meclizine 2020-0 Yes [id number] 25mg Take 1 U nivers 25 mg 1-03 tablet by ity of tablet 00:00: mouth 3 00 (three) Medical times Branch daily as needed for Dizziness. meclizine 2020-0 Yes [id number] 25mg Take 1 U nivers 25 mg 1-03 tablet by ity of tablet 00:00: mouth 3 (three) Medical times Branch daily as needed for Dizziness. meclizine 2020-0 Yes [id number] 25mg Take 1 U nivers 25 mg 1-03 tablet by ity of tablet 00:00: mouth 3 (three) Medical times Branch daily as needed for Dizziness. meclizine 2020-0 Yes [id number] 25mg Take 1 U nivers 25 mg 1-03 tablet by ity of tablet 00:00: mouth 3 00 (three) Medical times Branch daily as needed for Dizziness. meclizine 2020-0 Yes [id number] 25mg Take 1 U nivers 25 mg 1-03 tablet by ity of tablet 00:00: mouth 3 00 (three) Medical times Branch daily as needed for Dizziness. meclizine 2020-0 Yes [id number] 25mg Take 1 U nivers 25 mg 1-03 tablet by ity of tablet 00:00: mouth 3 00 (three) Medical times Branch daily as needed for Dizziness. meclizine 2020-0 2020- No [id number] 25mg Take 1 Univers 25 mg 1-03 -28 tablet by ity of tablet 00:00: 00:00 mouth 3 [place] 00 :00 (three) Medical times Branch daily as needed for Dizziness. meclizine 2020-0 1- No [id number] 25mg Take 1 Univers 25 mg 1-03 -28 tablet by ity of tablet 00:00: 00:00 mouth 3 [place] 00 :00 (three) Medical times Branch daily as needed for Dizziness. chlorphenir 2019-0 Yes [id number] 4mg Take 1 Univers amine 4 mg 8-30 tablet by ity of tablet 00:00: mouth [place] 00 every 6 Medical (six) Branch hours as needed for Allergies or Runny nose. benzonatate 2019-0 Yes [id number] 200mg Take 1 Univers 200 mg 8-30 capsule by ity of capsule 00:00: mouth 3 [place] 00 (three) Medical times Branch daily as needed for Cough. chlorphenir 2019-0 Yes [id number] 4mg Take 1 Univers amine 4 mg 8-30 tablet by ity of tablet 00:00: mouth [place] 00 every 6 Medical (six) Branch hours as needed for Allergies or Runny nose. benzonatate 2019-0 Yes [id number] 200mg Take 1 Univers 200 mg 8-30 capsule by ity of capsule 00:00: mouth 3 [place] 00 (three) Medical times Branch daily as needed for Cough. chlorphenir 2019-0 Yes [id number] 4mg Take 1 Univers amine 4 mg 8-30 tablet by ity of tablet 00:00: mouth [place] 00 every 6 Medical (six) Branch hours as needed for Allergies or Runny nose. benzonatate 2019-0 Yes [id number] 200mg Take 1 Univers 200 mg 8-30 capsule by ity of capsule 00:00: mouth 3 00 (three) Medical times Branch daily as needed for Cough. chlorphenir 2019-0 Yes [id number] 4mg Take 1 Univers amine 4 mg 8-30 tablet by ity of tablet 00:00: mouth [place] 00 every 6 Medical (six) Branch hours as needed for Allergies or Runny nose. benzonatate 2019-0 Yes [id number] 200mg Take 1 Univers 200 mg 8-30 capsule by ity of capsule 00:00: mouth 3 [place] 00 (three) Medical times Branch daily as needed for Cough. chlorphenir 2019-0 Yes [id number] 4mg Take 1 Univers amine 4 mg 8-30 tablet by ity of tablet 00:00: mouth [place] 00 every 6 Medical (six) Branch hours as needed for Allergies or Runny nose. benzonatate 2019-0 Yes [id number] 200mg Take 1 Univers 200 mg 8-30 capsule by ity of capsule 00:00: mouth 3 [place] 00 (three) Medical times Branch daily as needed for Cough. chlorphenir 2019-0 Yes [id number] 4mg Take 1 Univers amine 4 mg 8-30 tablet by ity of tablet 00:00: mouth [place] 00 every 6 Medical (six) Branch hours as needed for Allergies or Runny nose. benzonatate 2019-0 Yes [id number] 200mg Take 1 Univers 200 mg 8-30 capsule by ity of capsule 00:00: mouth 3 [place] 00 (three) Medical times Branch daily as needed for Cough. chlorphenir 2019-0 Yes [id number] 4mg Take 1 Univers amine 4 mg 8-30 tablet by ity of tablet 00:00: mouth [place] 00 every 6 Medical (six) Branch hours as needed for Allergies or Runny nose. benzonatate 2019-0 Yes [id number] 200mg Take 1 Univers 200 mg 8-30 capsule by ity of capsule 00:00: mouth 3 (three) Medical times Branch daily as needed for Cough. chlorphenir 2019-0 Yes [id number] 4mg Take 1 Univers amine 4 mg 8-30 tablet by ity of tablet 00:00: mouth [place] 00 every 6 Medical (six) Branch hours as needed for Allergies or Runny nose. benzonatate 2019-0 Yes [id number] 200mg Take 1 Univers 200 mg 8-30 capsule by ity of capsule 00:00: mouth 3 (three) Medical times Branch daily as needed for Cough. chlorphenir 2019-0 Yes [id number] 4mg Take 1 Univers amine 4 mg 8-30 tablet by ity of tablet 00:00: mouth [place] 00 every 6 Medical (six) Branch hours as needed for Allergies or Runny nose. benzonatate 2019-0 Yes [id number] 200mg Take 1 Univers 200 mg 8-30 capsule by ity of capsule 00:00: mouth 3 (three) Medical times Branch daily as needed for Cough. chlorphenir 2019-0 Yes [id number] 4mg Take 1 Univers amine 4 mg 8-30 tablet by ity of tablet 00:00: mouth [place] 00 every 6 Medical (six) Branch hours as needed for Allergies or Runny nose. benzonatate 2019-0 Yes [id number] 200mg Take 1 Univers 200 mg 8-30 capsule by ity of capsule 00:00: mouth 3 [place] 00 (three) Medical times Branch daily as needed for Cough. chlorphenir 2019-0 Yes [id number] 4mg Take 1 Univers amine 4 mg 8-30 tablet by ity of tablet 00:00: mouth [place] 00 every 6 Medical (six) Branch hours as needed for Allergies or Runny nose. benzonatate Yes [id number] 200mg Take 1 Univers 200 mg 8-30 capsule by ity of capsule 00:00: mouth 3 [place] 00 (three) Medical times Branch daily as needed for Cough. chlorphenir 2020- No [id number] 4mg Take 1 Univers amine 4 mg 8-30 -28 tablet by ity of tablet 00:00: 00:00 mouth [place] 00 :00 every 6 Medical (six) Branch hours as needed for Allergies or Runny nose. benzonatate 2020- No [id number] 200mg Take 1 Univers 200 mg 8-30 01-28 capsule by ity of capsule 00:00: 00:00 mouth 3 [place] 00 :00 (three) Medical times Branch daily as needed for Cough. chlorphenir 2020- No [id number] 4mg Take 1 Univers amine 4 mg 8-30 -28 tablet by ity of tablet 00:00: 00:00 mouth [place] 00 :00 every 6 Medical (six) Branch hours as needed for Allergies or Runny nose. benzonatate 2020- No [id number] 200mg Take 1 Univers 200 mg 8-30 -28 capsule by ity of capsule 00:00: 00:00 mouth 3 [place] 00 :00 (three) Medical times Branch daily as needed for Cough. ibuprofen Yes 400mg Take 400 Uni vers (MOTRIN) 9-03 mg by ity of 400 mg 16:29: mouth [place] tablet 22 every 8 Medical (eight) Branch hours as needed. loratadine Yes 10mg Take 10 mg U nivers [...] tablet (twelve) Branc h hours. ibuprofen 2018-0 1- No 800mg Take 1 Univ ers 800 [...] No 1{bottl Use 1 Univers chlor-bicar 2-20 -28 e} Bottle in it y of b-squeez [...] No 1{bottl Use 1 Univers chlor-bicar 2-20 09-19 e} Bottle in it y of b-squeez [...] Completed Unive rsity of TEODORA/J&J VACCINE 00:00:00 [facility] SARS-COV-2 COVID-19 2021-08-12 Completed Unive rsity of TEODORA/J&J VACCINE 00:00:00 [facility] SARS-COV-2 COVID-19 2021-08-12 Completed Unive rsity of TEODORA/J&J VACCINE 00:00:00 [facility] SARS-COV-2 COVID-19 2021-08-12 Completed Unive rsity of TEODORA/J&J VACCINE 00:00:00 [facility] SARS-COV-2 COVID-19 2021-08-12 Completed Unive rsity of TEODORA/J&J VACCINE 00:00:00 [facility] SARS-COV-2 COVID-19 2021-08-12 Completed Unive rsity of TEODORA/J&J VACCINE 00:00:00 [facility] SARS-COV-2 COVID-19 2021-08-12 Completed Unive rsity of TEODORA/J&J VACCINE 00:00:00 [facility] Influenza Virus 2020-05-23 Completed Universit y of Vaccine 00:00:00 [facility] Influenza Virus 2020-05-23 Completed Universit y of Vaccine 00:00:00 [facility] Influenza Virus 2020-05-23 Completed Universit y of Vaccine 00:00:00 [facility] Influenza Virus 2020-05-23 Completed Universit y of Vaccine 00:00:00 [facility] Influenza Virus 2020-05-23 Completed Universit y of Vaccine 00:00:00 [facility] Influenza Virus 2020-05-23 Completed Universit y of Vaccine 00:00:00 [facility] Influenza Virus 2020-05-23 Completed Universit y of Vaccine 00:00:00 [facility] Influenza Virus 2020-05-23 Completed Universit y of Vaccine 00:00:00 [facility] Influenza Virus 2020-05-23 Completed Universit y of Vaccine 00:00:00 [facility] Influenza Virus 2020-05-23 Completed Universit y of Vaccine 00:00:00 [facility] Influenza Virus 2020-05-23 Completed Universit y of Vaccine 00:00:00 [facility] Influenza Virus 2020-05-23 Completed Universit y of Vaccine 00:00:00 [facility] Influenza Virus 2020-05-23 Completed Universit y of Vaccine 00:00:00 [facility] [place] [facility] Branch Influenza Virus 2020-05-23 Completed Universit y of Vaccine 00:00:00 [facility] [place] [facility] Branch Influenza Virus 2020-05-23 Completed Universit y of Vaccine 00:00:00 [facility] Influenza Virus 2020-05-23 Completed Universit y of Vaccine 00:00:00 [facility] Td 2018-04-25 Completed University of 00:00:00 [facility] Td 2018-04-25 Completed University of 00:00:00 [facility] Td 2018-04-25 Completed University of 00:00:00 [facility] Td 2018-04-25 Completed University of 00:00:00 [facility] Td 2018-04-25 Completed University of 00:00:00 [facility] Td 2018-04-25 Completed University of 00:00:00 [facility] Td 2018-04-25 Completed University of 00:00:00 [facility] Td 2018-04-25 Completed University of 00:00:00 [facility] Td 2018-04-25 Completed University of 00:00:00 [facility] Td 2018-04-25 Completed University of 00:00:00 [facility] Td 2018-04-25 Completed University of 00:00:00 [facility] Td 2018-04-25 Completed University of 00:00:00 [facility] Td 2018-04-25 Completed University of 00:00:00 [facility] Td 2018-04-25 Completed University of 00:00:00 [facility] [place] [facility] Branch Td 2018-04-25 Completed University of 00:00:00 [facility] Td 2018-04-25 Completed University of 00:00:00 [facility] Td 2018-04-25 Completed University of 00:00:00 [facility] Td 2018-04-25 Completed University of 00:00:00 [facility] Td 2018-04-25 Completed University of 00:00:00 [facility] Td 2018-04-25 Completed University of 00:00:00 [facility] Td 2018-04-25 Completed University of 00:00:00 [facility] [place] [facility] Td 2018-04-25 Completed University of 00:00:00 [facility] [place] [facility] Td 2018-04-25 Completed University of 00:00:00 [facility] Td 2018-04-25 Completed University of 00:00:00 [facility] TD, NOS 2018-04-25 Completed University of 00:00:00 [facility] TD, NOS 2018-04-25 Completed University of 00:00:00 [facility] [place] [facility] Branch Td 2018-04-25 Completed University of 00:00:00 [facility] TD, NOS Unknown Completed [facility] Influenza Virus Unknown Completed Universit y Vaccine [facility] SARS-COV-2 COVID-19 Unknown Completed Unive rsity of TEODORA/J&J VACCINE [facility] TD, NOS Unknown Completed [facility] Influenza Virus Unknown Completed Universit y of Vaccine [facility] SARS-COV-2 COVID-19 Unknown Completed Unive rsity of TEODORA/J&J VACCINE [facility] Vital Signs Vital Name Observation Time Observation Value Comments Source Systolic blood 2023-05-20 19:59:00 145 mm[Hg] Univer sity of pressure [facility] Diastolic blood 2023-05-20 19:59:00 89 mm[Hg] Unive rsity of [facility] Heart rate 2023-05-20 19:59:00 99 /min [facility] Body temperature 2023-05-20 19:59:00 37 Sana [facility] Respiratory rate 2023-05-20 19:59:00 17 /min [facility] Body height 2023-05-20 19:59:00 182.9 cm [facility] Body weight 2023-05-20 19:59:00 101.606 kg [facility] BMI 2023-05-20 19:59:00 30.38 kg/m2 [facility] Oxygen saturation in 2023-05-20 19:59:00 100 /min [facility] Arterial blood by [facility] [place] [facility] Pulse oximetry Branch Systolic blood 2023-01-25 03:52:00 144 mm[Hg] Univer sity of [facility] Diastolic blood 2023-01-25 03:52:00 96 mm[Hg] Unive rsity of pressure [facility] Heart rate 2023-01-25 03:52:00 97 /min [facility] Body temperature 2023-01-25 03:52:00 37.5 Sana [facility] Respiratory rate 2023-01-25 03:52:00 18 /min Univ ersity of [place] [facility] Body height 2023-01-25 03:52:00 182.9 cm Universi ty of [place] [facility] Body weight 2023-01-25 03:52:00 102.513 kg Universi ty of [place] [facility] BMI 2023-01-25 03:52:00 30.65 kg/m2 Universi ty of [place] [facility] Oxygen saturation in 2023-01-25 03:52:00 100 /min University of Arterial blood by [place] [facility] [employer] Pulse oximetry Branch Systolic blood 2022-07-22 17:14:00 131 mm[Hg] Univer sity of pressure [facility] Diastolic blood 2022-07-22 17:14:00 78 mm[Hg] Unive rsity of pressure [facility] Heart rate 2022-07-22 17:14:00 67 /min Universi ty of [place] [facility] Body height 2022-07-22 17:14:00 182.9 cm Universi ty of [place] [facility] Body weight 2022-07-22 17:14:00 103.42 kg Universi ty of [place] [facility] BMI 2022-07-22 17:14:00 30.92 kg/m2 Universi ty of [place] [facility] Oxygen saturation in 2022-07-22 17:14:00 97 /min University of Arterial blood by [place] [facility] Pulse oximetry Branch Systolic blood 2022-01-21 20:44:07 131 mm[Hg] Univer sity of pressure [place] [facility] Diastolic blood 2022-01-21 20:44:07 90 mm[Hg] Unive rsity of pressure [facility] Heart rate 2022-01-21 20:44:07 68 /min Universi ty of [place] [facility] Respiratory rate 2022-01-21 20:44:07 14 /min Univ ersity of [place] [facility] Oxygen saturation in 2022-01-21 20:44:07 98 /min University of Arterial blood by [place] [facility] Pulse oximetry Branch Body temperature 2022-01-21 18:31:00 36.33 Sana Univ ersity of [place] [facility] Body height 2022-01-21 18:31:00 182.9 cm Universi ty of [place] [facility] Body weight 2022-01-21 18:31:00 107.049 kg Universi ty [facility] [place] [facility] BMI 2022-01-21 18:31:00 32.01 kg/m2 Universi ty of [place] [facility] Systolic blood 2020-09-19 19:34:00 123 mm[Hg] Univer sity of pressure [place] [facility] Diastolic blood 2020-09-19 19:34:00 84 mm[Hg] Unive rsity of pressure [place] [facility] Heart rate 2020-09-19 19:34:00 79 /min Universi ty of [place] [facility] Respiratory rate 2020-09-19 19:34:00 19 /min Univ ersity of [place] [facility] Body height 2020-09-19 19:34:00 182.9 cm Universi ty of [place] [facility] Body weight 2020-09-19 19:34:00 108.863 kg Universi ty of [place] [facility] BMI 2020-09-19 19:34:00 32.55 kg/m2 Universi ty of [place] [facility] Oxygen saturation in 2020-09-19 19:34:00 96 /min University of Arterial blood by [place] [employer] Pulse oximetry Branch Systolic blood 2020-09-18 22:00:00 126 mm[Hg] Univer sity of pressure [place] [facility] Diastolic blood 2020-09-18 22:00:00 80 mm[Hg] Unive rsity of pressure [place] [facility] Heart rate 2020-09-18 22:00:00 63 /min Universi ty of [place] [facility] Respiratory rate 2020-09-18 22:00:00 17 /min Univ ersity of [place] [facility] Oxygen saturation in 2020-09-18 22:00:00 98 /min University of Arterial blood by [place] [employer] Pulse oximetry Branch Body temperature 2020-09-18 21:00:00 36.56 Sana Univ ersity of [place] [facility] Body weight 2020-09-18 18:46:00 108.863 kg Universi ty of [place] [facility] BMI 2020-09-18 18:46:00 32.55 kg/m2 Universi ty of [place] [facility] Systolic blood 2020-01-24 17:00:00 117 mm[Hg] Univer sity of pressure [place] [facility] Diastolic blood 2020-01-24 17:00:00 85 mm[Hg] Unive rsity of pressure [place] [facility] Heart rate 2020-01-24 17:00:00 68 /min Universi ty of [place] [facility] Respiratory rate 2020-01-24 17:00:00 16 /min Univ ersity of [place] [facility] Oxygen saturation in 2020-01-24 17:00:00 96 /min University of Arterial blood by [facility] [place] [facility] Pulse oximetry Branch Body weight 2020-01-24 15:31:00 108.863 kg Universi ty of [place] [facility] BMI 2020-01-24 15:31:00 32.55 kg/m2 Universi ty of [place] [facility] Body temperature 2020-01-24 15:20:00 37.06 Sana Univ ersity of [place] [facility] Systolic blood 2019-11-13 22:00:00 131 mm[Hg] Univer sity of pressure [place] [facility] Diastolic blood 2019-11-13 22:00:00 83 mm[Hg] Unive rsity of pressure [place] [facility] Heart rate 2019-11-13 22:00:00 74 /min Universi ty of [place] [facility] Respiratory rate 2019-11-13 22:00:00 20 /min Univ ersity of [place] [facility] Oxygen saturation in 2019-11-13 22:00:00 98 /min University of Arterial blood by [facility] [place] [facility] Pulse oximetry Branch Body temperature 2019-11-13 20:49:00 37.89 Sana Univ ersity of [place] [facility] Body weight 2019-11-13 20:49:00 108.863 kg Universi ty [facility] [place] [facility] BMI 2019-11-13 20:49:00 32.55 kg/m2 [facility]i ty [facility] [place] [facility] Systolic blood 2019-04-21 20:00:00 142 mm[Hg] Univer sity of pressure [place] [facility] Diastolic blood 2019-04-21 20:00:00 88 mm[Hg] Unive rsity of pressure [place] [facility] Heart rate 2019-04-21 20:00:00 86 /min Universi ty [facility] [place] [facility] Body temperature 2019-04-21 20:00:00 37.22 Sana Univ ersity of [place] [facility] Respiratory rate 2019-04-21 20:00:00 18 /min Univ ersity of [place] [facility] Body height 2019-04-21 20:00:00 182.9 cm Universi ty [facility] [place] [facility] Body weight 2019-04-21 20:00:00 106.142 kg [facility]i ty [facility] [place] [facility] BMI 2019-04-21 20:00:00 31.74 kg/m2 [facility] [place] [facility] Oxygen saturation in 2019-04-21 20:00:00 97 /min University Arterial blood by [facility] [place] [facility] Pulse oximetry Branch Procedures Procedure Date / Time Performing Source Performed Clinician CT ABDOMEN PELVIS W CONTRAST [facility]23[facility]05-[facility] 21:05:00 [facility] ASSIGNMENT OF BENEFITS 2023-05-20 Doctor Unasscamden, [facility] 20:27:24 [facility] LIPASE 2023-05-20 [facility] 20:24:00 [facility] COMP. METABOLIC PANEL ([id number]) 2023-05-20 [facility] 20:24:00 [facility] CBC WITH DIFF 2023-05-20 [facility] 20:24:00 [facility] CONSENT/REFUSAL FOR DIAGNOSIS 2023-05-20 Doctor Unassigned, [facility] AND TREATMENT 19:46:13 [facility] NOTICE OF PRIVACY PRACTICES 2023-01-25 Doctor Unasscamden, [facility] 03:48:24 [facility] CONSENT/REFUSAL FOR DIAGNOSIS 2023-01-25 Doctor Unassigned, [facility] AND TREATMENT 03:46:22 [facility] HB ECG ROUTINE & RHYTHM STRIP 2022-07-22 Doris Mitchell [facility] 17:19:25 Medical Branch CONSENT/REFUSAL FOR DIAGNOSIS 2022-07-22 Doctor Unachris, [facility] AND TREATMENT 17:00:[address] [facility] [address] ABDOMEN PELVIS W CONTRAST 2022-01-21 Shanel Granados [facility] 20:55:17 Medical Branch URINALYSIS 2022-01-[address] [facility] 20:24:00 Medical Branch LIPASE 2022-01-[address] [facility] 20:17:00 Medical Branch COMP. METABOLIC PANEL ([id number]) 2022-01-21 Shanel Granados [facility] 20:17:00 Medical Branch CBC WITH DIFF 2022-01-[address] [facility] 20:17:00 Medical Branch CONSENT/REFUSAL FOR DIAGNOSIS 2022-01-21 Doctor Unassigned, [facility] AND TREATMENT 18:41:37 [facility] NOTICE OF PRIVACY PRACTICES 2022-01-21 Doctor Unassigned, [facility] 18:26:14 [facility] SARS-COV-2 COVID-19 2021-08-12 Doctor Unassigned, [facility] VACCINE,0.5ML,IM 19:06:07 [facility] (TEODORA/J&J) DISCLOSURE AND CONSENT, 2020-09-30 Doctor Unassigned, [facility] MEDICAL AND SURGICAL 06:01:00 [place] [facility] PROCEDURES TROPONIN I 2020-09-18 Sagar [facility] xa 21:25:00 Medical Branch XR CHEST 1 VW [facility] 19[facility] Branch TROPONIN I 2020-09-18 Sagar [facility] 19:05:00 Medical Branch HEPATIC FUNCTION PANEL 2020-09-18 Sagar [facility] ([id number]) (ALB,T.PRO,BILI 19:05:00 Medical Branch T,BU/BC,ALT,AST,ALK PHOS) BASIC METABOLIC PANEL (NA, K, 2020-09-18 Estrellita Keith [facility] CL, CO2, GLUCOSE, BUN, 19:05:00 Medical ranch CREATININE, [place]) CBC WITH DIFF 2020-09-18 Sagra [facility] 19:05:00 Medical Branch PROTHROMBIN TIME / INR 2020-09-18 Sagar [facility] 19:05:00 Medical Branch D-DIMER 2020-09-18 Sagar [facility] 19:05:00 Medical Branch ACTIVATED PARTIAL THRMPLAS 2020-09-18 Sagar [facility] 19:05:00 Medical Branch CONSENT/REFUSAL FOR DIAGNOSIS 2020-09-18 Doctor Unasscamden, [facility] AND TREATMENT 18:41:22 [facility] GAMMA GLUTAMYLTRANSFERASE 2020-05-24 Serenity Vicente [facility] 20:15:00 Medical Branch FERRITIN SERUM 2020-05-24 Lana [facility] 20:15:00 Medical Branch IONIZED CALCIUM 2020-05-24 Lana [facility] 20:15:00 [facility] CERULOPLASMIN 2020-05-24 [facility] 20:15:00 [facility] ALPHA 1 ANTITRYPSIN 2020-05-24 [facility] 20:15:00 [facility] HEPATIC FUNCTION PANEL 2020-05-24 [facility] ([id number]) (ALB,T.PRO,BILI 20:15:00 Medical Branch T,BU/BC,ALT,AST,ALK PHOS) BASIC METABOLIC PANEL (NA, K, 2020-05-24 [facility] CL, CO2, GLUCOSE, BUN, 20:15:00 Medical ranch CREATININE, [place]) ALPHA FETOPROTEIN 2020-05-24 [facility] 20:15:00 [facility] IRON PANEL 2020-05-24 [facility] 20:15:00 Medical Branch CBC WITH DIFF 2020-05-24 [facility] 20:15:00 [facility] PROTHROMBIN TIME / INR 2020-05-24 [facility] 20:15:00 Medical Branch ACTIVATED PARTIAL THRMPLAS 2020-05-24 Lana Serenity [facility] [place] 20:15:00 [facility] HEPATITIS B SURFACE ANTIBODY 2020-05-24 [facility]ity [facility] 20:15:00 [facility] HEPATITIS B SURFACE ANTIGEN 2020-05-24 [facility]ity [facility] 20:15:00 [facility] HCV ANTIBODY 2020-05-24 Vicente [facility] 20:15:00 [facility] HBC ANTIBODY (IGM & IGG) 2020-05-24 Lana Serenity [facility] 20:15:00 [facility] HEPATITIS B CORE ANTIBODY IGM 2020-05-24 Vicente [facility] 20:15:00 [facility] HAV ANTIBODY (IGG AND IGM) 2020-05-24 Vicente Serenity [facility] 20:15:00 Medical Branch PHYSICIAN ORDERS 2020-05-24 Doctor Unassigned, [facility] 05:01:00 [facility] MR ABDOMEN W WO CONTRAST 2020-02-13 Arjun Marin [facility] 17:07:21 Medical Branch ASSIGNMENT OF BENEFITS 2020-02-13 Doctor Unassigned, [facility] 15:38:[address] [place] [address] [place] [address] HEAD WO CONTRAST 2020-01-24 Sagar [facility] 15:51:03 [facility] TROPONIN I 2020-01-24 Sagar [facility] xa 15:42:00 [facility] HEPATIC FUNCTION PANEL 2020-01-24 Sagar [facility] ([id number]) (ALB,T.PRO,BILI 15:42:00 Medical Branch T,BU/BC,ALT,AST,ALK PHOS) BASIC METABOLIC PANEL (NA, K, 2020-01-24 Estrellita Keith [facility] CL, CO2, GLUCOSE, BUN, 15:42:00 Medical ranch CREATININE, [place]) CBC WITH DIFFERENTIAL 2020-01-24 Sagar [facility] 15:42:00 [facility] PROTHROMBIN TIME / INR 2020-01-24 Sagar [facility] 15:42:00 Medical Branch ACTIVATED PARTIAL THRMPLAS 2020-01-24 [facility] 15:42:00 [facility] N-TERMINAL PRO-BNP 2020-01-24 [facility] 15:42:00 [facility] NOTICE OF PRIVACY PRACTICES 2020-01-24 Doctor Unassigned, [facility] 15:12:23 [place] [facility] [place] CONSENT/REFUSAL FOR DIAGNOSIS 2020-01-24 Doctor Unassigned, [facility] AND TREATMENT 15:12:[address] [place] [address] [place] [address] ABDOMEN PELVIS W CONTRAST 2019-11-13 Ayah Stevens [facility] 21:53:08 Medical Branch LIPASE 2019-11-13 Ayah Stevens [facility] 21:09:00 Medical Branch COMP. METABOLIC PANEL ([id number]) 2019-11-13 Ayah Stevens [facility] 21:09:00 Medical Branch CBC WITH DIFFERENTIAL 2019-11-13 Ayah Stevens [facility] 21:09:00 Medical Branch URINALYSIS 2019-11-13 Ayah Stevens [facility] 21:09:00 Medical [place] CONSENT/REFUSAL FOR DIAGNOSIS 2019-11-13 Doctor Unassigned, [facility] AND TREATMENT 20:30:36 [facility] XR CHEST 1 VW 2019-04-21 Javier Galeano [facility] xa 20:23:50 Medical Branch NOTICE OF PRIVACY PRACTICES 2019-04-21 Doctor Unassigned, [facility] 19:53:43 [facility] CONSENT/REFUSAL FOR DIAGNOSIS 2019-04-21 Doctor Unassigned, [facility] AND TREATMENT 19:53:30 [facility] Encounters Start End Encounter Admission Attending Care Care Encounter Source Date/Time Date/Time Type Type Clinicians Facility Department ID 2021-06-21 Emergency [facility] [id number] [facility] 20:02[facility]07 [facility] [place] [facility] 2023-07-26 2023-07-26 Outpatient R RODOLFO [facility] [id number] Univers 10:40:00 10:40:00 DORIS [facility] 2023-05-21 2023-05-21 Patient Doctor SANDRA [id number] Univers 00:00:00 00:00:00 Secure Msg Unassigned, MASOOD [id number] ity [place] [facility] [id number] [facility] [id number] [facility] [address] [place] 2023-05-20 2023-05-20 [facility] [id number] Univers 15:02:00 19:01:00 , KIMBERLYN [facility] [place] [facility] 2023-05-20 2023-05-20 Emergency [facility] [id number] Univers 15:02:00 19:01:00 , Kimberlyn ROXANA [id number] i ty of Nicole VANESSA [id number] [facility] [id number] [place] [id number] [place] 2023-01-24 2023-01-24 Emergency X [facility] E[facility] [id number] Univers 22:54:00 23:52:00 NAREN [facility] 2023-01-24 2023-01-24 [facility] [id number] Univers 22:54:00 23:52:00 Naren SCHMIDT [id number] i [id number] [facility] [id number] [facility] [address] [place] 2023-01-24 2023-01-24 Orders Doctor SANDRA [id number] Univers 00:00:00 00:00:00 Only Unassigned, MASOOD [id number] [facility] [id number] [place] as [phone] [address] 2022-08-18 2022-08-18 Outpatient R [facility] [id number] Univers 15:00:00 15:00:00 DORIS [facility] 2022-07-22 2022-07-22 Outpatient R [facility] [id number] Univers 11:20:00 12:11:31 DORIS [facility] 2022-07-22 2022-07-22 Office [facility] [id number] Univers 11:20:00 12:11:31 Visit Doris SCHMIDT [id number] i [id number] [facility] [id number] [address] 2022-07-22 2022-07-22 Orders Doctor FLORES [id number] Univers 00:00:00 00:00:00 Only Unassigned, MASOOD [id number] ity of [facility] [id number] [place] [phone] [address] 2022-01-21 2022-01-21 Emergency [facility] E[facility] [id number] Univers 13:33:00 18:34:00 SHANEL [facility] 2022-01-21 2022-01-21 Emergency [facility] [id number] Univers 13:33:00 18:34:00 Shanel SCHMIDT [id number] [id number] [id number] [facility] [address] [place] 2021-08-12 2021-08-12 Outpatient R [facility] [id number] Univers 13:00:00 13:00:00 STEVE ity [facility] 2021-08-12 2021-08-12 Imm/Inj Nurse, [facility] Pob Immunization [facility] [id number] Univers 13:00:00 13:00:00 Visit FrancescoSteve ROXANA [id number] ity [facility] [id number] [phone] [place] dical NAL [address] Branch BUILDING 2021-03-24 2021-03-24 Outpatient [address] [facility] 09:48:00 13:57:00 CARLOS ALBERTO 2020-11-02 2020-11-02 [facility] 1.2.840.114 [id number] Univers 00:00:00 00:00:00 Outreach Steve [facility] 350.1.13.10 i ty [facility] [place] [facility] [phone] [place] dical [address] 2020-10-28 2020-10-28 Laboratory Lab, [facility] Fam Pob I [facility] 1.2. 840.114 [id number] Univers 09:33:47 09:53:47 Only Patti Goode 350.1.13.10 ity of [place] 4.2.7.2.686 [place] as Professio [phone] Nc dical nal [address] Office Building One 2020-10-28 2020-10-28 Outpatient Senthil G[facility]DE [facility] [id number] Univers 09:40:00 09:40:00 PATTI bowling [facility] 2020-10-28 2020-10-28 Letter Doctor FLORES 1.2.840.114 [id number] Univers 00:00:00 00:00:00 (Out) Unassigned, MASOOD 350.1.13.10 ity of [place] [facility] 4.2.7.2.686 [place] as [phone] [facility] [address] 2020-10-28 2020-10-28 Letter Doctor SANDRA 1.2.840.114 [id number] Univers 00:00:00 00:00:00 (Out) Unassigned, MASOOD 350.1.13.10 ity of [place] HOSPITAL 4.2.7.2.686 [place] as [phone] [facility] [address] 2020-10-24 2020-10-24 Telemedici [facility] 1.2.840.114 [id number] Univers 15:48:40 16:18:40 ne Visit Aaliyah Schmidt 350.1.13.10 it[place] Profess[place] [phone] N[place] dical nal 9 [facility] 2020-10-24 2020-10-24 Outpatient R SARAH BETH [facility] [id number] Univers 15:00:00 15:00:00 SENDIL ity of [facility] 2020-10-09 2020-10-09 Telephone [facility] [id number] Univers 00:00:00 00:00:00 Sendmario Schmidt 350.1.13.10 [place] Profess[place] [phone] Nc dicwi nal [address] [place] [address] 2020-09-30 2020-09-30 Outpatient R [facility] [id number] Univers 08:00:00 08:00:00 ity of [facility] 2020-09-30 2020-09-30 Orders Doctor SANDRA 1.2.840.114 [id number] Univers 00:00:00 00:00:00 Only Unassigned, MASOOD 350.1.13.10 ity of [place] HOSPITAL 4.2.7.2.686 [place] as [phone] [facility] [address] 2020-09-19 2020-09-19 Office Sarah Beth [facility] 1.2.840.114 [id number] Univers 13:21:26 14:14:00 Visit Aaliyah Schmidt 350.1.13.10 [place] Profess[place] [phone] Nc dical nal 059 [facility] 2020-09-19 2020-09-19 Outpatient R SARAH [facility] [id number] Univers 13:30:00 13:30:00 SENDIL ity of [facility] 2020-09-18 2020-09-18 Emergency [facility] 1.2.142.866 [id number] Univers 12:48:00 16:59:00 Estrellita Schmidt 350.1.13.10 i ty [place].2.[place] [phone] [facility] [address] 2020-05-24 2020-05-27 Cutter Aluminum Sheet Roberto, Adc Lab Main [facility] 1.2.8 40.114 [id number] Univers 14:41:25 09:09:51 Visit Serenity Vicente 350.1.13.10 it[place].2.[place] Profess[place] [phone] Nc dical nal 353 [facility] 2020-05-24 2020-05-24 Outpatient R LANA [facility] [id number] Univers 14:30:00 14:30:00 SERENITY ity [facility] 2020-05-24 2020-05-24 Orders Doctor FLORES 1.2.840.114 [id number] Univers 00:00:00 00:00:00 Only Unassigned, MASOOD 350.1.13.10 ity of [place] [facility] 4.2.7.2.686 [place] as [phone] [facility] [address] 2020-02-13 2020-02-13 Outpatient R TANIA [facility] [id number] Univers 10:39:59 23:59:00 ARJUN ity of [facility] 2020-02-13 2020-02-13 Hospital [facility] 1.2.840.114 [id number] Univers 10:39:00 23:59:00 Encounter Arjun Schmidt 350.1.13.10 [place] [phone] [facility] [address] 2020-02-13 2020-02-13 Orders Doctor FLORES 1.2.840.114 [id number] Univers 00:00:00 00:00:00 Only Unassigned, MASOOD 350.1.13.10 ity of [place] HOSPITAL 4.2.7.2.686 Lloyd as [phone] [address] 2020-01-31 2020-01-31 Letter Unknown, [facility] 1.2.840.114 [id number] Univers 00:00:00 00:00:00 (Out) Attending Roxana 350.1.13.10 ity of [place] 4.2.7.2.686 [place] Professio [phone] Nc dical [facility]2 [facility] 2020-01-24 2020-01-24 Emergency [facility] 1.2.420.791 [id number] Univers 10:22:00 12:33:00 Estrellita Schmidt 350.1.13.10 i ty of [place] 4.2.7.2.686 [facility] [phone] [address] 2020-01-24 2020-01-24 Emergency [facility] [id number] Univers 10:22:00 12:33:00 ESTRELLITA ity [facility] 2020-01-24 2020-01-24 Orders Doctor SANDRA 1.2.840.114 [id number] Univers 00:00:00 00:00:00 Only Unassigned, MASOOD 350.1.13.10 ity of [place] HOSPITAL 4.2.7.2.686 [place] as [phone] [address] 2019-11-13 2019-11-13 Emergency [facility]RT [id number] Univers 15:52:45 17:24:00 AYAH bowling [facility] 2019-11-13 2019-11-13 Emergency [facility] 1.2.773.577 [id number] Univers 15:52:45 17:24:00 Ayah Schmidt 350.1.13.10 i ty of [place] 4.2.7.2.686 [facility] [phone] [address] 2019-04-21 2019-04-21 Emergency [facility] 1.2.354.755 [id number] Univers 15:03:10 15:40:00 Javier Schmidt 350.1.13.10 i ty [facility] 4.2.7.2.686 [facility] [phone] [facility] [address] Results Test Description Test Time [...] RDW-SD (test code = 43.6 fL 38.5-51.6 07259-7) RDW-CV (test code = 12.7 % 12.1-15.4 788-0) PLT (test code = 777-3) See_Comment [Au tomated message] The system which generated this result transmitted ref erence range: 150 - 328 10*3/?L. The reference range was not u sed to interpret this result as normal/abnormal. MPV (test code = 02040-9) 11.1 fL 9.8-13.0 NRBC/100 WBC (test code = See_Comment [ Automated message] The system [id number]) which generated this result transmitted ref erence range: 0.0 - 10.0 /100 WBC s. The reference range was not u sed to interpret this result as normal/abnormal. NRBC x10^3 (test code = <0.01 See_Comment [Au tomated message] The system 3137170924) which generated this result transmitted ref erence range: 10*3/?L. The re ference range was not used to int erpret this result as normal/abnor mal. GRAN MAT (NEUT) % (test 63.8 % code = 770-8) IMM GRAN % (test code = 0.60 % 5302134622) LYMPH % (test code = 24.6 % 736-9) MONO % (test code = 8.3 % 5905-5) EOS % (test code = 713-8) 2.1 % BASO % (test code = 0.6 % 706-2) GRAN MAT x10^3(ANC) (test 5.54 10*3/uL 1.99-6.95 code = 9580207701) IMM GRAN x10^3 (test code 0.05 10*3/uL 0.00-0.06 = 3327617919) LYMPH x10^3 (test code = 2.13 10*3/uL 1.09-3.23 731-0) MONO x10^3 (test code = 0.72 10*3/uL 0.36-1.02 742-7) EOS x10^3 (test code = 0.18 10*3/uL 0.06-0.53 711-2) BASO x10^3 (test code = 0.05 10*3/uL 0.01-0.09 704-7) [facility]. METABOLIC PANEL (35632)2022-01-21 20:55:52 Test Item Value Reference Range Interpretation Comments NA (test code = 142 mmol/L 135-145 8762841393) K (test code = 4.4 mmol/L 3.5-5.0 5139563093) CL (test code = 105 mmol/L 98-108 1738594303) CO2 TOTAL (test code 26 mmol/L 23-31 = 7216836086) AGAP (test code = 2-16 7084026197) BUN (test code = 16 mg/dL 7-23 2265216982) GLUCOSE (test code = 95 mg/dL 70-110 5686454483) CREATININE (test code 0.79 mg/dL 0.60-1.25 = 2182935269) TOTAL BILI (test code 0.5 mg/dL 0.1-1.1 = 8905660565) CALCIUM (test code = 9.1 mg/dL 8.6-10.6 7927902116) T PROTEIN (test code 8.1 g/dL 6.3-8.2 = 2592525954) ALBUMIN (test code = 4.2 g/dL 3.5-5.0 6529233441) ALK PHOS (test code = 78 U/L 34-122 7773601029) ALTv (test code = 18 U/L 5-50 1742-6) AST(SGOT) (test code 21 U/L 13-40 = 5565993107) eGFR (test code = mL/min/1.73m2 9659640343) HEATHER (test code = HEATHER) Association of [...] or urine or abnormalities in imaging tests). [facility] 20:55:37 Test Item Value Reference Range Interpretation Comments LIPASE (test code = 5640461924) 70 U/L 0-220 Lab Interpretation (test code = Normal 08507-7) [facility] CampusTROPONIN [id number] 22:32:00 Test Item Value Reference Range Interpretation Comments TROPONIN I (test <0.012 See_Comment [Automated code = 7072260327) message] The system which generated this result [...] ? Lab Interpretation Normal (test code = 42046-0) [facility] CampusD-[id number] 20:17:00 Test Item Value Reference Interpretation Comments Range D-DIMER (test code = <0.27 See_Comment [Autom ated 5016630170) message] The system which generated this result [...] diagnosis. Lab Interpretation Normal (test code = 85486-8) [facility] 1 [id number] 19:37:43HISTORY: Chest pain. TECHNIQUE: Portable AP erect [...] limits. CONCLUSIONS: No signs of acute cardiopulmonary disease.[facility] [id number] 19:37:00 Test Item Value Reference Range Interpretation Comments TROPONIN I (test <0.012 See_Comment [Automated code = 5774038470) message] The system which generated this result [...] ? Lab Interpretation Normal (test code = 53819-6) [facility] CampusaPTT2021-01-27 19:32:00 Test Item Value Reference Range Interpretation Comments APTT Patient (test See_Comment [Automat ed code = 3173-2) message] The system which generated this result transmitted reference range : 23 - 38 Seconds . The reference range was not used to interpr et this result as normal/abnormal . HEATHER (test code = HEATHER) The [facility] patient population mean normal value for aPTT is 30 seconds. Lab Interpretation Normal (test code = 09842-2) [facility] CampusProthrombin Time (PT) / [id number] 19:30:00 Test Item Value Reference Range Interpretation [...] tions. Lab Interpretation (test Normal code = 59515-2) [facility] CampusBasi Metabolic Panel (NA, K, CL, CO2, GLUCOSE, BUN, CREATININE, CA)2020-09-18 19:26:00 Test Item Value Reference Range Interpretation Comments NA (test code = 140 mmol/L 135-145 4585037949) K (test code = 4.1 mmol/L 3.5-5 1927299965) CL (test code = 104 mmol/L 98-108 7858135336) CO2 TOTAL (test code = 26 mmol/L 23-31 4422683216) AGAP (test code = 2-16 8752336478) BUN (test code = 17 mg/dL 7-23 1314477609) GLUCOSE (test code = 110 mg/dL 70-110 9250702840) CREATININE (test code 0.84 mg/dL 0.6-1.25 = 3183604807) CALCIUM (test code = 9.0 mg/dL 8.6-10.6 7867232849) eGFR Calculation mL/min/1.73m2 (Non-) (test code = 3733975372) eGFR Calculation mL/min/1.73m2 () (test code = 4729715142) HEATHER (test code = HEATHER) Association of [...] or urine or abnormalities in imaging tests). [facility] CampusHepatic Function Panel (ALB, T.PRO, BILI T, BU/BC, ALT, AST, ALK PHOS)2020-09-18 19:26:00 Test Item Value Reference Range Interpretation Comments TOTAL BILI (test code = 2090060622) 0.8 mg/dL 0.1-1.1 BILI UNCON (test code = 1428226488) 0.8 mg/dL 0.1-1.1 BILI CONJ (test code = 0949915797) 0.0 mg/dL 0-0.3 T PROTEIN (test code = 5991636877) 8.4 g/dL 6.3-8.2 H ALBUMIN (test code = 6479071973) 4.3 g/dL 3.5-5 ALK PHOS (test code = 8782467485) 76 U/L 34-122 ALTv (test code = 1742-6) 25 U/L 5-50 AST(SGOT) (test code = 9256916411) 25 U/L 13-40 Lab Interpretation (test code = Abnormal 11984-0) [facility] with [id number] 19:15:00 Test Item Value Reference Range Interpretation Comments WBC (test code = See_Comment [Automated 8890-2) message] The sy stem which generated this result transmitted reference range : 4.20 - 10.70 10*3/?L. The reference range was not used to interpret this result as normal/abnormal . RBC (test code = See_Comment [Automated 557-8) message] The sy stem which generated this [...] RDW-SD (test code = 40.2 fL 38.5-51.6 55077-1) RDW-CV (test code = 12.1 % 12.1-15.4 788-0) PLT (test code = See_Comment [Automated 777-3) message] The sy stem which generated this result transmitted reference range : 150 - 328 10*3/ ?L. The reference r roxi was not used to interpret this result as normal/abnormal . MPV (test code = 11.0 fL 9.8-13 14679-5) NRBC/100 WBC (test See_Comment [Automat ed code = 0517182967) message] The system which generated this result transmitted reference range : 0.0 - 10.0 /100 WBCs. The refer ence range was not u sed to interpret th is result as normal/abnormal . NRBC x10^3 (test code <0.01 See_Comment [Auto mated = 1074912572) message] The s ystem which generated this result transmitted reference range : 10*3/?L. The reference range was not used to interpret this result as normal/abnormal . GRAN MAT (NEUT) % 67.8 % (test code = 770-8) IMM GRAN % (test code 0.40 % = 3584068953) LYMPH % (test code = 22.8 % 736-9) MONO % (test code = 7.4 % 5905-5) EOS % (test code = 1.2 % 713-8) BASO % (test code = 0.4 % 706-2) GRAN MAT x10^3(ANC) 5.31 10*3/uL 1.99-6.95 (test code = 7729756913) IMM GRAN x10^3 (test 0.03 10*3/uL 0-0.06 code = 1833735108) LYMPH x10^3 (test code 1.78 10*3/uL 1.09-3.23 = 731-0) MONO x10^3 (test code 0.58 10*3/uL 0.36-1.02 = 742-7) EOS x10^3 (test code = 0.09 10*3/uL 0.06-0.53 711-2) BASO x10^3 (test code 0.03 10*3/uL 0.01-0.09 = 704-7) Lab Interpretation Abnormal (test code = 51313-8) [facility]AL[facility] 1 [id number] 14:54:00 Test Item Value Reference Range Interpretation Comments Anti-Trypsin (test code = 118 mg/dL 83-199 6416048952) Lab Interpretation (test code = Normal 14586-4) [facility] CampusCERULOPLASMIN2020-10-03 14:53:00 Test Item Value Reference Range Interpretation Comments CERULO (test code = 2668192189) 25 mg/dL 25-63 Lab Interpretation (test code = Normal 52820-6) [facility] CampusHAV ANTIBODY (IGG AND IGM)2020-05-25 04:16:00 Test Item Value Reference Range Interpretation Comments HAV Total (test code Positive = 9718856706) HAVT Semi-Quantitative (test code = 7564168274) HEATHER (test code = HEATHER) Indicates past or present infection with HAV or exposure to HAV due to vaccination. [facility] CampusHBC ANTIBODY (IGM & IGG)2020-05-25 04:07:00 Test Item Value Reference Range Interpretation Comments HBC (test code = 1321971428) Negative HBC Semi-Quantitative (test code = 9618373485) [facility] CampusHCV [id number] 04:07:00 Test Item Value Reference Range Interpretation Comments HCV Ab (test code = 23888-2) Negative HCV Semi-Quantitative (test code = 60285-5) [facility] CampusHEPATITIS B SURFACE [id number] 04:07:00 Test Item Value Reference Range Interpretation Comments HBsAB (test code = Negative 8006572655) HBsAb mIU/mL Semi-Quantitative (test code = 9368218048) HEATHER (test code = Interpretation: HEATHER) ?Hepatitis B Surface Antibody ? Negative - Patient is considered to be not immune to infection with HBV. ? ? Positive - Anti-HBs detected at greater than or equal to 12 mIU/mL. ?Patient is considered to be immune to infection with HBV. ? [facility] CampusALPHA [id number] 03:55:00 Test Item Value Reference Range Interpretation Comments AFP (test code = 2.5 ng/mL See_Comment [Automated 3505118813) message] The system which generated this result transmitted reference range : <=7.5. The reference range was not used to interpret this result as normal/abnormal . HEATHER (test code = HEATHER) Biotin has been reported to cause a negative bias, interpret results relative to patient's use of biotin. Lab Interpretation Normal (test code = 52041-1) [facility] CampusHEPATITIS B CORE ANTIBODY [id number] 03:55:00 Test Item Value Reference Range Interpretation Comments HBCM Negative Semi-Quantitative (test code = 66607-4) HEATHER (test code = Biotin has been reported HEATHER) to cause a negative bias, interpret results relative to patient's use of biotin. [facility] CampusHECASE[facility] H[facility]ITALTIS B SURFACE [id number] 03:49:00 Test Item Value Reference Range Interpretation Comments HBsAg Semi-Quantitative (test code = Negative Negative 5195-3) [facility] CampusIONIZED [id number] 03:03:00 Test Item Value Reference Range Interpretation Comments IONIZED CA (test code = 4.80 mg/dL 4.5-5.3 0732237099) PH SERUM (test code = 7448355697) 7.35-7.45 L Lab Interpretation (test code = Abnormal 48661-1) [facility] CampusFERRITIN [id number] 22:25:00 Test Item Value Reference Range Interpretation Comments FERRITIN (test code = 282.0 ng/mL 18-464 0298620155) HEATHER (test code = HEATHER) Biotin has been reported to cause a negative bias, interpret results relative to patient's use of biotin. Lab Interpretation (test Normal code = 69827-4) [facility] CampusIRON [id number] 22:01:00 Test Item Value Reference Range Interpretation Comments IRON (test code = 7838083958) 82 ug/dL 50-160 TIBC (test code = 9569258583) 267 ug/dL 250-410 % FE SAT (test code = 4901016093) 31 % 20-50 Lab Interpretation (test code = Normal 61696-2) [facility] CampusHEPATIC FUNCTION PANEL (80997) (ALB,T.PRO,BILI T,BU/BC,ALT,AST,ALK PHOS)2020-05-24 21:53:00 Test Item Value Reference Range Interpretation Comments TOTAL BILI (test code = 9658440901) 0.5 mg/dL 0.1-1.1 BILI UNCON (test code = 3311436712) 0.4 mg/dL 0.1-1.1 BILI CONJ (test code = 5604454633) 0.0 mg/dL 0-0.3 T PROTEIN (test code = 0970444099) 7.4 g/dL 6.3-8.2 ALBUMIN (test code = 4766960659) 3.6 g/dL 3.5-5 ALK PHOS (test code = 6199254657) 78 U/L 34-122 ALTv (test code = 1742-6) 21 U/L 5-50 AST(SGOT) (test code = 9983612381) 21 U/L 13-40 Lab Interpretation (test code = Normal 47604-3) [facility] METABOLIC PANEL (NA, K, CL, CO2, GLUCOSE, BUN, CREATININE, CA)2020-05-24 21:52:00 Test Item Value Reference Range Interpretation Comments NA (test code = 141 mmol/L 135-145 1327390800) K (test code = 3.9 mmol/L 3.5-5 7028810736) CL (test code = 104 mmol/L 98-108 0462033748) CO2 TOTAL (test code = 28 mmol/L 23-31 2305227586) AGAP (test code = 2-16 0062055269) BUN (test code = 16 mg/dL 7-23 4029397894) GLUCOSE (test code = 100 mg/dL 70-110 5241366918) CREATININE (test code 0.85 mg/dL 0.6-1.25 = 8917291921) CALCIUM (test code = 9.3 mg/dL 8.6-10.6 3343916264) eGFR Calculation mL/min/1.73m2 (Non-) (test code = 6957581677) eGFR Calculation mL/min/1.73m2 () (test code = 6320739640) HEATHER (test code = HEATHER) Association of [...] or urine or abnormalities in imaging tests). [facility] CampusGAMMA [id number] 21:52:00 Test Item Value Reference Range Interpretation Comments GGT (test code = 8113180801) 41 U/L 13-58 Lab Interpretation (test code = Normal 17660-8) [facility] CampusaPTT2020-10-02 20:33:00 Test Item Value Reference Range Interpretation Comments APTT Patient (test See_Comment [Automat ed code = 3173-2) message] The system which generated this result transmitted reference range : 23 - 38 Seconds . The reference range was not used to interpr et this result as normal/abnormal . HEATHER (test code = HEATHER) The [facility] patient population mean normal value for aPTT is 30 seconds. Lab Interpretation Normal (test code = 85871-1) [facility] CampusPROTHROMBIN TIME / [id number] 20:31:00 Test Item Value Reference Range Interpretation [...] tions. Lab Interpretation (test Normal code = 25072-1) [facility] WITH [id number] 20:29:00 Test Item Value Reference Range Interpretation [...] RDW-SD (test code = 45.3 fL 38.5-51.6 70474-4) RDW-CV (test code = 13.0 % 12.1-15.4 788-0) PLT (test code = See_Comment [Automated 777-3) message] The sy stem which generated this result transmitted reference range : 150 - 328 10*3/ ?L. The reference r roxi was not used to interpret this result as normal/abnormal . MPV (test code = 11.2 fL 9.8-13 86380-7) NRBC/100 WBC (test See_Comment [Automat ed code = 2550632740) message] The system which generated this result transmitted reference range : 0.0 - 10.0 /100 WBCs. The refer ence range was not u sed to interpret th is result as normal/abnormal . NRBC x10^3 (test code <0.01 See_Comment [Auto mated = 6764335433) message] The s ystem which generated this result transmitted reference range : 10*3/?L. The reference range was not used to interpret this result as normal/abnormal . GRAN MAT (NEUT) % 58.1 % (test code = 770-8) IMM GRAN % (test code 0.50 % = 7624699055) LYMPH % (test code = 25.8 % 736-9) MONO % (test code = 7.7 % 5905-5) EOS % (test code = 7.2 % 713-8) BASO % (test code = 0.7 % 706-2) GRAN MAT x10^3(ANC) 4.44 10*3/uL 1.99-6.95 (test code = 9831501305) IMM GRAN x10^3 (test 0.04 10*3/uL 0-0.06 code = 8986144842) LYMPH x10^3 (test code 1.97 10*3/uL 1.09-3.23 = 731-0) MONO x10^3 (test code 0.59 10*3/uL 0.36-1.02 = 742-7) EOS x10^3 (test code = 0.55 10*3/uL 0.06-0.53 H 711-2) BASO x10^3 (test code 0.05 10*3/uL 0.01-0.09 = 704-7) Lab Interpretation Abnormal (test code = 30395-0) [facility] CampusMR ABDOMEN W WO [id number] 17:54:06 HISTORY: Liver lesion. TECHNIQUE: MRI studies [...] evidence of acute cholecystitis.4. Short sliding hiatal hernia.[facility], Radiant Results Inft User [...] evidence of acute cholecystitis.4. Short sliding hiatal hernia.[facility] Troponin [id number] 16:24:00 Test Item Value Reference Range Interpretation Comments TROPONIN I (test <0.012 See_Comment [Automated code = 3202949761) message] The system which generated this result [...] ? Lab Interpretation Normal (test code = 00987-9) [facility] CampusN-TERMINAL [id number] 16:21:00 Test Item Value Reference Range Interpretation Comments NT-proBNP (test code 38 pg/mL See_Comment [Autom ated = 6782679263) message] The system which generated this result transmitted reference range : <=125. The reference range was not used to interpret this result as normal/abnormal . HEATHER (test code = HEATHER) Biotin has been reported to cause a negative bias, interpret results relative to patient's use of biotin. Lab Interpretation Normal (test code = 95439-8) [facility] CampusBasi Metabolic Panel (NA, K, CL, CO2, GLUCOSE, BUN, CREATININE, CA)2020-01-24 16:14:00 Test Item Value Reference Range Interpretation Comments NA (test code = 139 mmol/L 135-145 1149778332) K (test code = 4.4 mmol/L 3.5-5 1121431714) CL (test code = 105 mmol/L 98-108 3066331874) CO2 TOTAL (test code = 29 mmol/L 23-31 5295704626) AGAP (test code = 2-16 3029621308) BUN (test code = 13 mg/dL 7-23 0420088194) GLUCOSE (test code = 140 mg/dL 70-110 H 3050475141) CREATININE (test code = 0.87 mg/dL 0.6-1.25 1113054691) CALCIUM (test code = 9.3 mg/dL 8.6-10.6 3549490722) eGFR Calculation mL/min/1.73m2 (Non-) (test code = 9629105087) eGFR Calculation mL/min/1.73m2 () (test code = 9911849662) HEATHER (test code = HEATHER) Association of [...] tests). Lab Interpretation Abnormal (test code = 39494-5) [facility] CampusHep[facility] Function Panel (ALB, T.PRO, BILI T, BU/BC, ALT, AST, ALK PHOS)2020-01-24 16:13:00 Test Item Value Reference Range Interpretation Comments TOTAL BILI (test code = 9205794458) 0.7 mg/dL 0.1-1.1 BILI UNCON (test code = 3923171458) 0.9 mg/dL 0.1-1.1 BILI CONJ (test code = 3400919738) 0.0 mg/dL 0-0.3 T PROTEIN (test code = 9167066670) 8.3 g/dL 6.3-8.2 H ALBUMIN (test code = 4989593436) 4.2 g/dL 3.5-5 ALK PHOS (test code = 7934553973) 81 U/L 34-122 ALTv (test code = 1742-6) 16 U/L 5-50 AST(SGOT) (test code = 8301369003) 23 U/L 13-40 Lab Interpretation (test code = Abnormal 76320-3) [facility] 16:06:00 Test Item Value Reference Range Interpretation Comments APTT Patient (test See_Comment [Automat ed code = 3173-2) message] The system which generated this result transmitted reference range : 23 - 38 Seconds . The reference range was not used to interpr et this result as normal/abnormal . HEATHER (test code = HEATHER) The [facility] patient population mean normal value for aPTT is 30 seconds. Lab Interpretation Normal (test code = 23243-6) [facility] (PT[facility] / [id number] 16:06:00 Test Item Value Reference Range Interpretation [...] tions. Lab Interpretation (test Normal code = 92506-2) [facility] WITH [id number] 15:58:00 Test Item Value Reference Range Interpretation Comments WBC (test code = See_Comment [Automated message] 6690-2) The system [employer] generated this result transmitted ref erence range: 4.20 - 1 0.70 10*3/?L. The re ference range was not u sed to interpret this result as normal/abnor mal. RBC (test code = See_Comment [Automated message] 789-8) The system [employer] generated this result transmitted ref erence range: [...] RDW-SD (test code 42.6 fL 38.5-51.6 = 36836-1) RDW-CV (test code 12.4 % 12.1-15.4 = 788-0) PLT (test code = See_Comment [Automated message] 727-3) The system [employer] generated this result transmitted ref erence range: 150 - 32 8 10*3/?L. The re ference range was not u sed to interpret this result as normal/abnor mal. MPV (test code = 11.1 fL 9.8-13 06447-1) NRBC/100 WBC (test See_Comment [Automat ed message] code = 1382552621) The [employer] which generated this result transmitted ref erence range: 0.0 - 10 .0 /100 WBCs. The refer ence range was not u sed to interpret this result as normal/abnor mal. NRBC x10^3 (test <0.01 See_Comment [Automated message] code = 2560254812) The syste m which generated this result transmitted ref erence range: 10*3/?L. The reference range was not used to interpr et this result as normal/abnormal . GRAN MAT (NEUT) % 64.9 % (test code = 770-8) IMM GRAN % (test 0.60 % code = 1836369530) LYMPH % (test code 24.4 % = 736-9) MONO % (test code 6.7 % = 5905-5) EOS % (test code = 2.8 % 713-8) BASO % (test code 0.6 % = 706-2) GRAN MAT 4.65 10*3/uL 1.99-6.95 x10^3(ANC) (test code = 9204577397) IMM GRAN x10^3 0.04 10*3/uL 0-0.06 (test code = 2780665500) LYMPH x10^3 (test 1.75 10*3/uL 1.09-3.23 code = 731-0) MONO x10^3 (test 0.48 10*3/uL 0.36-1.02 code = 742-7) EOS x10^3 (test 0.20 10*3/uL 0.06-0.53 code = 711-2) BASO x10^3 (test 0.04 10*3/uL 0.01-0.09 code = 704-7) [facility] WO [id number] 15:54:24No acute findings. HISTORY:Headache, acute, normal neuro [...] extracranial tissues demonstrate no acute findings.IMPRESSIONNo acute findings.[facility] ABDOMEN PELVIS W [id number] 22:01:58Impression: Sigmoid diverticulosis with no evidence of [...] triple phase CTfor confirmation.Enlarged prostate. Mild gynecom astia.[facility]. METABOLIC PANEL (87730)2019-11-13 21:30:00 Test Item Value Reference Range Interpretation Comments NA (test code = 136 mmol/L 135-145 2082006764) K (test code = 3.9 mmol/L 3.5-5 4870644376) CL (test code = 101 mmol/L 98-108 1590412671) CO2 TOTAL (test code = 25 mmol/L 23-31 1739978924) AGAP (test code = 2-16 7989704572) BUN (test code = 13 mg/dL 7-23 9191403790) GLUCOSE (test code = 101 mg/dL 70-110 3424154121) CREATININE (test code = 0.91 mg/dL 0.6-1.25 8261072668) TOTAL BILI (test code = 0.5 mg/dL 0.1-1.2 6235336370) CALCIUM (test code = 9.3 mg/dL 8.6-10.6 6537205310) T PROTEIN (test code = 8.6 g/dL 6.3-8.2 H 9605680560) ALBUMIN (test code = 4.4 g/dL 3.5-5 7846887423) ALK PHOS (test code = 82 U/L 34-122 3282299499) ALTv (test code = 25 U/L 5-50 1742-6) AST(SGOT) (test code = 23 U/L 13-40 5276454538) eGFR Calculation mL/min/1.73m2 (Non-) (test code = 9454862313) eGFR Calculation mL/min/1.73m2 () (test code = 6043365069) HEATHER (test code = HEATHER) Association of [...] tests). Lab Interpretation Abnormal (test code = 70713-3) [facility]2020-03-[facility] 21:30:00 Test Item Value Reference Range Interpretation Comments LIPASE (test code = 5252601177) 68 U/L 0-220 Lab Interpretation (test code = Normal 63729-6) [facility]IN[facility]2020-03-23 21:28:00 Test Item Value Reference Range Interpretation Comments APPEARANCE (test code = Clear Clear 6399467593) COLOR (test code = Straw Yellow A 1157535565) PH (test code = 4.8-8.0 0009129511) SP GRAVITY (test code = 1.003-1.030 1829959889) GLU U QUAL (test code = Normal Normal 4146186709) BLOOD (test code = Negative Negative 7672557102) KETONES (test code = 5 mg/dL Negative A 5573784073) PROTEIN (test code = Negative Negative 2887-8) UROBILIN (test code = Normal Normal 9894034724) BILIRUBIN (test code = Negative Negative 0311403176) NITRITE (test code = Negative Negative 3135840312) LE[place] JILL (test code = Negative Negative 2156827141) RBC/HPF (test code = See_Comment [Autom ated message] 1647074172) The system [employer] generated this result transmitted ref erence range: 0 - 3 HP F. The reference range was not used to int erpret this result as normal/abnormal . WBC/HPF (test code = See_Comment [Autom ated message] 4921154025) The system [employer] generated this result transmitted ref erence range: 0 - 5 HP F. The reference range was not used to int erpret this result as normal/abnormal . BACTERIA (test code = Negative Negative 8714508817) SQ EPITH (test code = HPF 6968976568) Lab Interpretation (test Abnormal code = 65257-9) [facility] WITH [id number] 21:19:00 Test Item Value Reference Range Interpretation Comments WBC (test code = See_Comment [Automated message] 6690-2) The system [employer] generated this result transmitted ref erence range: 4.20 - 1 0.70 10*3/?L. The re ference range was not u sed to interpret this result as normal/abnor mal. RBC (test code = See_Comment [Automated message] 789-8) The system [employer] generated this result transmitted ref erence range: [...] RDW-SD (test code 42.3 fL 38.5-51.6 = 66236-9) RDW-CV (test code 12.1 % 12.1-15.4 = 788-0) PLT (test code = See_Comment [Automated message] 777-3) The system whic h generated this result transmitted ref erence range: 150 - 32 8 10*3/?L. The re ference range was not u sed to interpret this result as normal/abnor mal. MPV (test code = 10.6 fL 9.8-13 99353-3) NRBC/100 WBC (test See_Comment [Automat ed message] code = 0525346003) The syste m which generated this result transmitted ref erence range: 0.0 - 10 .0 /100 WBCs. The refer ence range was not u sed to interpret this result as normal/abnor mal. NRBC x10^3 (test <0.01 See_Comment [Automated message] code = 7681438644) The syste m which generated this result transmitted ref erence range: 10*3/?L. The reference range was not used to interpr et this result as normal/abnormal . GRAN MAT (NEUT) % 66.8 % (test code = 770-8) IMM GRAN % (test 0.30 % code = 4811138275) LYMPH % (test code 23.0 % = 736-9) MONO % (test code 7.7 % = 5905-5) EOS % (test code = 1.7 % 713-8) BASO % (test code 0.5 % = 706-2) GRAN MAT 5.86 10*3/uL 1.99-6.95 x10^3(ANC) (test code = 8068494968) IMM GRAN x10^3 0.03 10*3/uL 0-0.06 (test code = 3676838512) LYMPH x10^3 (test 2.02 10*3/uL 1.09-3.23 code = 731-0) MONO x10^3 (test 0.68 10*3/uL 0.36-1.02 code = 742-7) EOS x10^3 (test 0.15 10*3/uL 0.06-0.53 code = 711-2) BASO x10^3 (test 0.04 10*3/uL 0.01-0.09 code = 704-7) [facility] CHEST 1 [id number] 20:28:16* * * * * * * * ORIGINAL REPORT * * * * * * * *CHEST PORTABLE ONE VIEW HISTORY:Cough TECHNIQUE: Frontal, portable projection of the chest is obtained. COMPARISON: 12/01/2015 FINDINGS: The lungs are clear. The heart size and mediastinal silhouetteare normal. No pleural effusion or pneumothorax is seen. CONCLUSIONS: No acute cardiopulmonary disease. [facility], Radiant Results Inft User - 04/21/2019 3:30 PM CDT* * * * * * * * ORIGINAL REPORT * * * * * * * *CHEST PORTABLE ONE VIEWHISTORY:CoughTECHNIQUE: Frontal, portable projection of the chest is obtained.COMPARISON: 12/01/2015FINDINGS: The lungs are clear. The heart size and mediastinal silhouetteare normal. No pleural effusion or pneumothorax is seen.CONCLUSIONS: No acute cardiopulmonary disease.[facility]
--- NOTE | 2023-07-03 13:53 | EDPHYS ---
Physician Documentation [facility] Name: Clifton Garcia Age: 58 yrs Sex: Male : 1965 Arrival Date: 07/03/2023 Time: 13:28 Bed IW1 Private MD: ED Physician Armando Hummel HPI: 07/03 17:48 This 58 yrs old Male presents to ER via Ambulatory with complaints of sb4 Abdominal Pain. 17:48 patient presents with complaints of GERD, generalized abdominal pain, and belching x 3 sb4 months. he has been seen at [place] ED and seen by GI with an EGD completed last week. he has been taking protonix and pepcid but states he is still having a lot of reflux/belching. he has a CT chest/abd with PO and IV contrast scheduled for this week. no fevers, nausea, vomiting, diarrhea. Historical: - Allergies: 13:39 No Known Allergies; ll1 - PMHx: 13:39 Hypertensive disorder; ll1 - PSHx: 13:39 Tonsillectomy; ll1 - Immunization history:: Client reports receiving the 2nd dose of the Covid vaccine. - Social history:: Smoking status: Patient denies any tobacco usage or history of. ROS: 17:48 Constitutional: Negative for fever, chills, and weight loss, sb4 17:48 Abdomen/GI: Positive for abdominal pain, flatulence, GERD, 17:48 All other systems are negative, Exam: 17:48 Constitutional: This is a well developed, well nourished patient who is awake, alert, sb4 and in no acute distress. Head/Face: Normocephalic, atraumatic. Eyes: Extra-ocular motions intact. Periorbital areas with no swelling, redness, or edema. ENT: Mucous membranes moist. Cardiovascular: Regular rate and rhythm with a normal S1 and S2. Respiratory: Lungs have equal breath sounds bilaterally, clear to auscultation and percussion. No rales, rhonchi or wheezes noted. No increased work of breathing, no retractions or nasal flaring. Abdomen/GI: Soft, non-tender, no distension. Skin: Warm, dry with normal turgor. Normal color with no rashes, no lesions, and no evidence of cellulitis. MS/ Extremity: Pulses equal, no cyanosis. Neurovascular intact. Full, normal range of motion. Neuro: Awake and alert, GCS 15, oriented to person, place, time, and situation. Motor strength 5/5 in all extremities. Sensory grossly intact. Vital Signs: 13:37 BP 127 / 88; Pulse 94; Resp 16; Temp 97.9; Pulse Ox 100% ; Weight 101.6 kg; Height 6 ll1 ft. 0 in. ; Pain 7/10; 13:37 Body Mass Index 30.38 (101.60 kg, 182.88 cm) ll1 13:37 Pain Scale: Adult ll1 MDM: 13:43 Patient medically screened. sb4 17:48 Differential diagnosis: gastroesophageal reflux disease, Peptic Ulcer Disease. Data sb4 reviewed: vital signs, nurses notes, and as a result, I will discharge patient. Test considered but Not performed: Labs: has already had negative work ups recently, nontoxic appearing. 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 Administered Medications: No medications were administered Disposition Summary: 07/03/23 13:52 Discharge Ordered Notes: Location: Home sb4 Problem: an ongoing problem sb4 Symptoms: are unchanged sb4 Condition: Stable sb4 Diagnosis - Gastro-esophageal reflux disease without esophagitis sb4 Followup: sb4 - With: Lulu Quintanilla MD - When: 2 - 3 days - Reason: Recheck today's complaints, Re-evaluation by your physician Discharge Instructions: - Discharge Summary Sheet sb4 - Food Choices for Gastroesophageal Reflux Disease, Adult sb4 Forms: - Medication Reconciliation Form sb4 - Thank You Letter sb4 - Antibiotic Education sb4 - Prescription Opioid Use sb4 - Patient Portal Instructions sb4 - Leadership Thank You Letter sb4 Prescriptions: - simethicone 125 mg Oral capsule - take 1 capsule ORAL route 2 times per day administer after meals; 20 capsule; sb4 Refills: 0, Product Selection Permitted Addendum: 07/04/2023 16:44 I was immediately available for consultation during this patient's visit. I did not e c2 personally see the patient or guide the patient's care. . Signatures: Krista Shook RN RN ll1 Ghada Dubon PA-C PA-C sb4 Armando Hummel, MD ec2
--- NOTE | 2023-07-03 13:53 | ER ---
Nurse's Notes [facility] Name: Clifton Garcia Age: 58 yrs Sex: Male : 1965 Arrival Date: 07/03/2023 Time: 13:28 Bed IW1 Private MD: Diagnosis: Gastro-esophageal reflux disease without esophagitis Presentation: 07/03 13:37 Chief complaint: Patient states: Abdominal pain for at least 1 month. Found a ll1 concerning area with EGD last week. Still has lot of indigestion and N/V. Coronavirus screen: Client denies travel out of the [place] in the last 14 days. At this time, the client does not indicate any symptoms associated with coronavirus-19. Ebola Screen: Patient denies travel to an Ebola-affected area in the 21 days before illness onset. Initial Sepsis Screen: Does the patient meet any 2 criteria? HR > 90 bpm. No. Patient's initial sepsis screen is negative. Does the patient have a suspected source of infection? Yes: Acute abdominal pain. Risk Assessment: Do you want to hurt yourself or someone else? Patient reports no desire to harm self or others. Onset of symptoms was June 01, 2023. 13:37 Method Of Arrival: Ambulatory ll1 13:37 Acuity: JOAN 5 hb Triage Assessment: 13:42 General: Appears in no apparent distress. Behavior is calm, cooperative, appropriate ll1 for age. Pain: Complains of pain in abdomen Pain currently is 7 out of 10 on a pain scale. GI: Abdomen is flat, Reports lower abdominal pain, upper abdominal pain, indigestion, nausea, vomiting. Historical: - Allergies: 13:39 No Known Allergies; ll1 - PMHx: 13:39 Hypertensive disorder; ll1 - PSHx: 13:39 Tonsillectomy; ll1 - Immunization history:: Client reports receiving the 2nd dose of the Covid vaccine. - Social history:: Smoking status: Patient denies any tobacco usage or history of. Screenin:49 [facility] ED Fall Risk Assessment (Adult) Score/Fall Risk Level 0 - 2 = Low Risk ll1 Oriented to surroundings, Maintained a safe environment, Educated pt \T\ family on fall prevention, incl call for assistance when getting out of bed, Hourly rounding (assess needs \T\ fall precautionary measures) done. Abuse screen: Denies threats or abuse. Nutritional screening: No deficits noted. Tuberculosis screening: No symptoms or risk factors identified. Assessment: 13:52 GI: Bowel sounds present X 4 quads. Abd is soft and non tender X 4 quads. hb Vital Signs: 13:37 BP 127 / 88; Pulse 94; Resp 16; Temp 97.9; Pulse Ox 100% ; Weight 101.6 kg; Height 6 ll1 ft. 0 in. ; Pain 7/10; 13:37 Body Mass Index 30.38 (101.60 kg, 182.88 cm) ll1 13:37 Pain Scale: Adult ll1 ED Course: 13:31 Patient arrived in ED. kj1 13:32 Ghada Dubon PA-C [facility]. sb4 13:32 Armando Hummel MD is Attending Physician. sb4 13:39 Triage completed. ll1 13:40 Arm band placed on. ll1 13:50 Patient has correct armband on for positive identification. Bed in low position. Call ll1 light in reach. Cardiac monitoring not applicable on this patient. 13:52 Lulu Quintanilla MD is Referral Physician. sb4 13:52 No provider procedures requiring assistance completed. Patient did not have IV access hb during this emergency room visit. 13:53 Provided Education on: n/a. hb Administered Medications: No medications were administered Medication: 13:50 VIS not applicable for this client. ll1 Outcome: 13:52 Discharge ordered by . sb4 13:52 Discharged to home ambulatory, hb 13:52 Condition: stable 13:52 Discharge instructions given to patient, Instructed on discharge instructions, follow up and referral plans. medication usage, Demonstrated understanding of instructions, follow-up care, medications, Prescriptions given X 1, 14:01 Patient left the ED. ll1 Signatures: Aura Menon RN RN hb Vidya Murphy kj1 Krista Shook RN RN ll1 Ghada Dubon PA-C PA-C sb4 Corrections: (The following items were deleted from the chart) 13:52 13:37 Acuity: JOAN 3 ll1 hb
[2023-07-03 14:05] VITALS: BP 127/88; TEMP 97.9; O2SAT 100
== END 2023-07-03 14:01 | disposition home or self-care (01) ==
LOC: ER 13:28
DX: K21.9 Gastro-esophageal reflux disease without esophagitis (principal); I10 Essential (primary) hypertension
CPT/HCPCS: 99283